=== PATIENT | male | born 1950 | race African-American/Black ===

== ENCOUNTER → 2017-11-16 | Outpatient (CLI) | payer OTHER | END | disposition home or self-care (01) | LOC: US 07:39 | DX: M79.89 Other specified soft tissue disorders (principal) | CPT/HCPCS: 93971 ==

== ENCOUNTER 2018-02-10 13:25 | Inpatient (IN) | payer OTHER, MEDICARE ==
[~2018-02-10] VITALS: Ht 177.8 cm; Wt 123.9 kg
[~2018-02-10 13:25] MED LIST: ALLO100T PO; AMLO10TA2 PO; AMLO25PO MC; AMLO5TAB2 PO; ASPI81TA59 PO; ATOR40TA59 PO; CARV12.52 PO; CARV25TA PO; CEFP200T PO; CLON1PAT10 TD; CLON1PAT2 TD; CLOP75TA PO; FLUC100T7 PO; FURO40TA4 PO; FURO80TA3 PO; HYDR-2758 PO; HYDR-2802 PO; HYDR-2869 PO; HYDR-971 PO; INSU100I11 SQ; INSU100I13 SQ; INSU100I17 SQ; INSU100I27 SQ; LOSA100T6 PO; LOSA50TA2 PO; METO10PO MC; METO10TA PO; METO10TA81 PO; MULT-658 PO; OMEG300C PO; OMEP40CA2 PO; OMEP40CA5 PO; PANT40TA5 PO; TIMO5DRO26 OP; VARD20TA2 PO
[2018-02-10 15:00] VITALS: BP 167/78
--- NOTE | 2018-02-10 16:17 | PDOC ---
Subjective: Subjective: Please see GI consult from 01/26/18, saw for upper abd pain and n/v. Had mildly elevated lipase (max 558). Abd US was unrevealing. EGD showed healed reflux and some retained soup. CT showed subtle hazy indistinctness of uncinate. GES was basically normal (11% retention at 4 hours). HIDA was w/o cystic duct obstruction, EF 60%. Last colonoscopy in 2011 w/ hyperplastic polyp and angiodysplasia. Improved on PPI and Reglan, discharged on 02/02. Directly admitted by PCP. Pt and say he's not feeling well at all, still has upper abdominal pain ("burning") and retching (describes phlegm). Says can' t keep anything down, also says has eaten chicken broth and Sujit's since seeing Dr. Chery. says he has lost 20 pounds. I think provides the same med list from prior to last admission - shows omeprazole BID and Reglan 10mg tabs BID. Objective: Vital Signs: Please see EMR. Labs: Please see EMR. PE: GEN: NAD, sitting on edge of bed HEENT: Atraumatic, PERRL LUNGS: CTAB HEART: RRR ABD: NABS, round, epigastric tenderness to BUQ - some muscular discomfort? EXTREMITY: No edema SKIN: No rashes, no jaundice NEURO/PSYCH: A & O 3 A/P: Upper abd pain, n/v/retching, weight loss -past workup per HPI -improved last week on IV Reglan -- Plans for celiac and mesenteric Doppler, await this and labs. Restart PPI and Reglan. Check CA19-9 and MRCP. RJ HAYS Feb 10, 2018 16:17
[2018-02-10 16:33] LABS: BASO # 0.1 x10^3/uL (0.0-0.2); BASO % 1 % (0-3); EOS # 0.1 x10^3/uL (0.0-0.7); EOS % 1 % (0-3); HEMATOCRIT 40.5 % (39.0-53.0); HEMOGLOBIN 13.2 g/dL (13.0-17.5); LYMPH # 2.3 x10^3/uL (1.0-4.8); LYMPH % 37 % (24-48); MEAN CORPUSCULAR HEMOGLOBIN 30 pg (25-35); MEAN CORPUSCULAR HGB CONC 33 g/dL (31-37); MEAN CORPUSCULAR VOLUME 93 fL (79-100); MONO # 0.6 x10^3/uL (0.0-1.1); MONO % 9 % (0-9); NEUT # 3.2 x10^3uL (1.8-7.7); NEUT % 53 % (31-73); PLATELET COUNT 222 x10^3/uL (140-400); RED BLOOD COUNT 4.35 x10^6/uL (4.30-5.70); RED CELL DISTRIBUTION WIDTH 13.7 % (11.5-14.5); WHITE BLOOD COUNT 6.2 x10^3/uL (4.0-11.0)
[2018-02-10 16:34] LABS: ALBUMIN 3.5 g/dL (3.4-5.0); ALBUMIN/GLOBULIN RATIO 0.8 (1.0-1.7); CALCIUM 9.1 mg/dL (8.5-10.1); CREATININE 2.5 mg/dL (0.7-1.3); GFR 31.3; POTASSIUM 4.2 mmol/L (3.5-5.1); TOTAL BILIRUBIN 0.4 mg/dL (0.2-1.0); TOTAL PROTEIN 7.7 g/dL (6.4-8.2)
[2018-02-10] MEDS ORDERED: LOSA50TA6 PO (16:44)
[2018-02-10] MEDS ORDERED: CARV12.52 PO (16:44)
[2018-02-10] MEDS ORDERED: HYDR-2758 PO (16:44)
[2018-02-10] MEDS ORDERED: CLON1PAT9 TD (16:44)
[2018-02-10] MEDS ORDERED: PANT20TA2 PO (16:44)
[2018-02-10] MEDS: ASPIRIN CHEWABLE 81 MG TABLET. PO SCH (17:00)
[2018-02-10] MEDS ORDERED: ACETAMINOPHEN 325 MG TABLET. PO PRN (17:00)
[2018-02-10] MEDS ORDERED: METOCLOPRAMIDE 10 MG TABLET. PO SCH (17:00)
[2018-02-10] MEDS: CLOPIDOGREL BISULFATE 75 MG TABLET PO SCH (17:00)
[2018-02-10] MEDS: FUROSEMIDE 80 MG TABLET. PO SCH (17:00)
[2018-02-10] MEDS ORDERED: PANTOPRAZOLE IV PUSH 40 MG VIAL. IVP SCH (17:00)
[2018-02-10] MEDS ORDERED: MORPHINE SULFATE 2 MG/ML VIAL. IV PRN (17:00)
[2018-02-10] MEDS: METOCLOPRAMIDE HCL 10 MG/2 ML VIAL. IV SCH ×2 (17:00→21:48)
[2018-02-10] MEDS: INSULIN LISPRO 300 UNITS/3 ML INSULN.PEN. SQ SCH (18:17)
[2018-02-10 19:20] VITALS: BP 166/83
[2018-02-10] MEDS ORDERED: INSULIN GLARGINE 300 UNITS/3 ML INSULN.PEN. SQ SCH (21:00)
[2018-02-10] MEDS: ONDANSETRON PF 4 MG/2 ML VIAL. IV SCH (21:47)
[2018-02-10] MEDS: PANTOPRAZOLE IV PUSH 40 MG VIAL. IVP SCH (21:47)
[2018-02-10] MEDS: IV 1/2 NORMAL SALINE 1,000 ML IV SCH (21:47)
[2018-02-10] MEDS: ALLOPURINOL 100 MG TABLET. PO SCH (21:48)
[2018-02-10] MEDS: MORPHINE SULFATE 2 MG/ML VIAL. IV PRN (21:48)
[2018-02-10] MEDS: CARVEDILOL 12.5 MG TABLET. PO SCH (21:49)
[2018-02-10] MEDS: ATORVASTATIN CALCIUM 40 MG TABLET. PO SCH (21:49)
[2018-02-10 23:20] VITALS: BP 163/97
[2018-02-11 03:20] VITALS: BP 166/73
[2018-02-11] MEDS: MORPHINE SULFATE 2 MG/ML VIAL. IV PRN (03:51)
[2018-02-11] MEDS: ONDANSETRON PF 4 MG/2 ML VIAL. IV SCH ×5 (06:00→23:17)
[2018-02-11 06:16] LABS: BASO # 0.1 x10^3/uL (0.0-0.2); BASO % 1 % (0-3); EOS # 0.1 x10^3/uL (0.0-0.7); EOS % 2 % (0-3); HEMATOCRIT 37.7 % (39.0-53.0); HEMOGLOBIN 12.9 g/dL (13.0-17.5); LYMPH # 2.3 x10^3/uL (1.0-4.8); LYMPH % 34 % (24-48); MEAN CORPUSCULAR HEMOGLOBIN 31 pg (25-35); MEAN CORPUSCULAR HGB CONC 34 g/dL (31-37); MEAN CORPUSCULAR VOLUME 90 fL (79-100); MONO # 0.8 x10^3/uL (0.0-1.1); MONO % 11 % (0-9); NEUT # 3.5 x10^3uL (1.8-7.7); NEUT % 52 % (31-73); PLATELET COUNT 227 x10^3/uL (140-400); RED BLOOD COUNT 4.21 x10^6/uL (4.30-5.70); RED CELL DISTRIBUTION WIDTH 13.4 % (11.5-14.5); WHITE BLOOD COUNT 6.7 x10^3/uL (4.0-11.0)
[2018-02-11 06:20] LABS: CALCIUM 8.7 mg/dL (8.5-10.1); CREATININE 2.3 mg/dL (0.7-1.3); GFR 34.5; POTASSIUM 4.1 mmol/L (3.5-5.1)
[2018-02-11 07:30] VITALS: BP 192/75
--- NOTE | 2018-02-11 07:42 | RAD ---
Indication:CONFIRM PICC PLACEMENT TECHNIQUE:Portable AP chest X-ray COMPARISON:01/26/2018 FINDINGS: Patient is significantly rotated to the right side. Right-sided PICC line is seen with its tip in the proximal SVC. Heart is normal in size. Lungs are clear. No pneumothorax or pleural effusion. Visualized bony thorax within normal limits. IMPRESSION: Tip of the PICC line is in the proximal SVC. Electronically signed by: Jose Velasquez DO (02/11/2018 7:38 AM) [facility]
[2018-02-11] MEDS: INSULIN LISPRO 300 UNITS/3 ML INSULN.PEN. SQ SCH ×3 (08:00→17:26)
--- NOTE | 2018-02-11 08:32 | RAD ---
Indication: upper abdominal pain. TECHNIQUE: Limited Ultrasound abdomen with Doppler. COMPARISON: None FINDINGS: Nondiagnostic exam for evaluation of vasculature due to body habitus and overlying bowel gas. Only a short segment of aorta is visualized which measures 2.1 cm and demonstrates evidence of blood flow. The visualized portions of the gallbladder demonstrates no gallstones or gallbladder wall thickening. IMPRESSION: Nondiagnostic Doppler exam for evaluation of abdominal vasculature due to body habitus and overlying bowel gas. Electronically signed by: Jose Velasquez DO (02/11/2018 8:28 AM) [facility]
[2018-02-11] MEDS: PANTOPRAZOLE IV PUSH 40 MG VIAL. IVP SCH ×2 (08:37→16:57)
[2018-02-11] MEDS: ALLOPURINOL 100 MG TABLET. PO SCH ×2 (08:37→20:37)
[2018-02-11] MEDS: FUROSEMIDE 80 MG TABLET. PO SCH (08:38)
[2018-02-11] MEDS: METOCLOPRAMIDE HCL 10 MG/2 ML VIAL. IV SCH ×4 (08:38→20:37)
[2018-02-11] MEDS: CARVEDILOL 12.5 MG TABLET. PO SCH ×2 (08:38→16:58)
[2018-02-11] MEDS: ASPIRIN CHEWABLE 81 MG TABLET. PO SCH (08:38)
[2018-02-11] MEDS: CLOPIDOGREL BISULFATE 75 MG TABLET PO SCH (08:38)
[2018-02-11] MEDS: IV 1/2 NORMAL SALINE 1,000 ML IV SCH (08:39)
[2018-02-11] MEDS: TIMOLOL 0.25% OPHTH SOLUTION 5ML BOTTLE. OU SCH (08:39)
[2018-02-11] MEDS ORDERED: cloNIDine TTS-1 1 PATCH PATCH.TDWK TD SCH (09:00)
[2018-02-11] MEDS ORDERED: LOSARTAN POTASSIUM 50 MG TABLET. PO SCH (09:00)
[2018-02-11] MEDS ORDERED: NON FORMULARY ITEM (Pantoprazole Sodium (Protonix) 40 MG) PO SCH (09:00)
[2018-02-11] MEDS ORDERED: MAG HYDROX/ALUMINUM HYD/SIMETH 30 ML ORAL.SUSP PO PRN (11:00)
--- NOTE | 2018-02-11 11:06 | PDOC ---
Provider Note Provider Note history and physical dictated # [id number] JONNY JOHN MD Feb 11, 2018 11:06
--- NOTE | 2018-02-11 11:17 | PDOC2 ---
CONSULT Date of Consult Date of Consult DATE: 02/10/18 TIME: 16:00 LATE ENTRY PT SEEN YESTERDAY AFTERNOON Reason for Consult Reason for Consult: epigastric pain Referring Physician Referring Physician: Dr Chery Identification/Chief Complaint Chief Complaint epigastric pain Source Source: Chart review, Patient History of Present Illness Reason for Visit: Mr Larios is an obese 68 yo gentleman who was recently hospitalized for intractable n/v. He is an IDD and had a thorough w/u last week. He was seen earlier today in the office and made a direct admit by Dr Chery for a repeat CT scan and an MRCP. He is currently sitting on the edge of his bed with his street clothes on. He is unhappy with the fact radiology came to take him for a scan that he was told would require sedation, and he has not been given any. Other than appearing unhappy, he does not appear to be in any distress. His is in the room Past Medical History Cardiovascular: HTN GI: GERD Renal/: Chronic renal insuff Endocrine: Diabetes Past Surgical History Past Surgical History: Other (left fem pop) Social History 1 pack per day ALCOHOL: none Drugs: None Lives: with Family Current Medications Current Medications Current Medications Sodium Chloride 1,000 ml @ 60 mls/hr [id number] IV Last administered on at 08:39; Start 02/10/18 at 15:30; Stop 02/11/18 at 10:55; Status DC Allopurinol (Zyloprim) 100 mg BID PO Last administered on 02/11/18at 08:37; Start 02/10/18 at 21:00 Aspirin (Children'S Aspirin) 81 mg DAILYWBKFT PO Last administered on at 08:38; Start 02/10/18 at 17:00 Clopidogrel Bisulfate (Plavix) 75 mg DAILY PO Last administered on 02/11/18at 08 :38; Start 02/10/18 at 17:00 Furosemide (Lasix) 80 mg BID94 PO Last administered on 02/11/18at 08:38; Start 02/10/18 at 17:00; Stop 02/11/18 at 10:55; Status DC Metoclopramide HCl (Reglan) 5 mg TIDACHC PO ; Start 02/10/18 at 17:00; Status UNV Pantoprazole Sodium (PROTONIX VIAL for IV PUSH) 40 mg DAILYAC IVP ; Start at 17:00; Stop 02/10/18 at 17:00; Status DC Metoclopramide HCl (Reglan Vial) 10 mg QIDACHS IV Last administered on 08:38; Start 02/10/18 at 17:00 Pantoprazole Sodium (PROTONIX VIAL for IV PUSH) 40 mg BIDAC IVP Last administered on 02/11/18at 08:37; Start 02/10/18 at 17:00 Timolol Maleate (Timoptic 0.25% [facility]) 1 drop DAILY OU Last administered on 08:39; Start 02/11/18 at 09:00 Atorvastatin Calcium (Lipitor) 40 mg HS PO Last administered on 02/10/18 21:49 ; Start 02/10/18 at 21:00 Carvedilol (Coreg) 12.5 mg BIDWMEALS PO Last administered on 02/11/18 08:38; Start 02/10/18 at 21:00; Stop 02/11/18 at 10:55; Status DC Clonidine HCl (Catapres Tts-1) 1 patch WEEKLY TD Last administered on 08:37; Start 02/11/18 at 09:00; Stop 02/11/18 at 10:55; Status DC Acetaminophen/ Hydrocodone Bitart (Lortab 5/325) 1 tab PRN Q4HRS PRN PO MODERATE-SEVERE PAIN; Start 02/10/18 at 16:45 Losartan Potassium (Cozaar) 50 mg DAILY PO Last administered on 02/11/18at 08:39 ; Start 02/11/18 at 09:00; Stop 02/11/18 at 10:56; Status DC Non-Formulary Medication (Pantoprazole Sodium (Protonix)) 40 mg DAILY PO ; Start 02/11/18 at 09:00; Status UNV Acetaminophen (Tylenol) 325 mg PRN Q4HRS PRN PO MILD PAIN / TEMP; Start at 17:00 Ondansetron HCl (Zofran) 4 mg Q6HRS IV Last administered on 02/10/18at 21:47; Start 02/10/18 at 18:00 Lorazepam (Ativan) 1 mg 1X ONCE IV ; Start 02/10/18 at 17:30; Stop 02/10/18 at 22:30; Status DC Insulin Human Lispro (HumaLOG) 6 units TIDWMEALS SQ Last administered on at 08:00; Start 02/10/18 at 17:30; Stop 02/11/18 at 10:56; Status DC Insulin Glargine (Lantus) 20 units QHS SQ Last administered on 02/10/18at 22:49 ; Start 02/10/18 at 21:00; Stop 02/11/18 at 10:55; Status DC Morphine Sulfate (Morphine Sulfate) 2 mg PRN Q4HRS PRN IV SEVERE PAIN Last administered on 02/11/18at 03:51; Start 02/10/18 at 17:00 Morphine Sulfate (Morphine Sulfate) 1 mg PRN Q4HRS PRN IV MODERATE PAIN; Start 02/10/18 at 17:00 Lorazepam (Ativan) 1 mg 1X ONCE IV ; Start 02/11/18 at 08:00; Stop 02/11/18 at 08:01; Status DC Carvedilol (Coreg) 25 mg BIDWMEALS PO ; Start 02/11/18 at 17:00 Insulin Glargine (Lantus) 40 units QHS SQ ; Start 02/11/18 at 21:00 Insulin Human Lispro (HumaLOG) 12 units TIDWMEALS SQ ; Start 02/11/18 at 12:00 Losartan Potassium (Cozaar) 100 mg DAILY PO ; Start 02/12/18 at 09:00 Clonidine HCl (Catapres Tts-2) 1 patch WEEKLY TD ; Start 02/11/18 at 12:00 Sodium Chloride 1,000 ml @ 75 mls/hr [id number] IV ; Start 02/11/18 at 12:00 Al Hydroxide/Mg Hydroxide (Mylanta Plus Xs) 30 ml PRN Q2HR PRN PO HEARTBURN / GAS; Start 02/11/18 at 11:00 Active Scripts Active Humalog (Insulin Lispro) 100 Unit/1 Ml Insuln.pen 16 Units SQ TIDAC 30 Days Lantus Solostar (Insulin Glargine,Hum.rec.anlog) 100 Unit/1 Ml Insuln.pen 40 Units SQ QHS 30 Days Amlodipine Besylate 5 Mg Tablet 5 Mg PO DAILY 30 Days Metoclopramide Hcl 10 Mg Tablet 10 [facility] Children's Aspirin (Aspirin) 81 Mg Tab.chew 81 Mg PO DAILYWBKFT Reported Protonix (Pantoprazole Sodium) 20 Mg Tablet.dr 40 Mg PO DAILY Hydrocodone-Apap 5-325 (Hydrocodone Bit/Acetaminophen) 1 Each Tablet 1 Tab PO Q4HRS PRN Losartan Potassium 50 Mg Tablet 50 Mg PO DAILY Catapres-Tts 1 (Clonidine) 1 Each Patch.tdwk 1 Each TD WEEKLY Carvedilol 12.5 Mg Tablet 1 Tab PO BID Omeprazole 40 Mg Capsule.dr 1 Cap PO DAILY Clopidogrel (Clopidogrel Bisulfate) 75 Mg Tablet 1 Tab PO DAILY Allopurinol 100 Mg Tablet 1 Tab PO BID Furosemide 80 Mg Tablet 1 Tab PO BID Centrum Silver Tablet (Multivits-Min/Fa/Lycopene/Lut) 1 Each Tablet 1 Each PO Fish Oil (Franklin-3 Fatty Acids) 300 Mg Capsule 1,000 Mg PO DAILY Atorvastatin Calcium 40 Mg Tablet 40 Mg PO HS Betimol (Timolol) 5 Ml Drops 5 Ml OP DAILY Allergies Allergies: Coded Allergies: ibuprofen (Verified Allergy, Intermediate, RENAL DYSFUNCTION, 01/27/18) kidney dysfunction lisinopril (Verified Allergy, Intermediate, 01/27/18) pioglitazone (Verified Allergy, Intermediate, 01/27/18) Physical Exam General: Alert, Oriented X3, No acute distress HEENT: Atraumatic Lungs: Normal air movement Vitals VITALS Vital Signs Date Time Temp Pulse Resp B/P (MAP) Pulse Ox O2 Delivery O2 Flow Rate FiO2 02/11/18 08:39 62 192/75 02/11/18 08:00 Room Air 02/11/18 07:30 98.1 18 100 98.1 Labs Labs Laboratory Tests Test 02/10/18 16:05 02/10/18 22:12 02/11/18 05:46 02/11/18 07:41 White Blood Count 6.2 x10^3/uL (4.0-11.0) 6.7 x10^3/uL (4.0-11.0) Red Blood Count 4.35 x10^6/uL (4.30-5.70) 4.21 x10^6/uL (4.30-5.70) Hemoglobin 13.2 g/dL (13.0-17.5) 12.9 g/dL (13.0-17.5) Hematocrit 40.5 % (39.0-53.0) 37.7 % (39.0-53.0) Mean Corpuscular Volume 93 fL (79-100) 90 fL (79-100) Mean Corpuscular Hemoglobin 30 pg (25-35) 31 pg (25-35) Mean Corpuscular Hemoglobin Concent 33 g/dL (31-37) 34 g/dL (31-37) Red Cell Distribution Width 13.7 % (11.5-14.5) 13.4 % (11.5-14.5) Platelet Count 222 x10^3/uL (140-400) 227 x10^3/uL (140-400) Neutrophils (%) (Auto) 53 % (31-73) 52 % (31-73) Lymphocytes (%) (Auto) 37 % (24-48) 34 % (24-48) Monocytes (%) (Auto) 9 % (0-9) 11 % (0-9) Eosinophils (%) (Auto) 1 % (0-3) 2 % (0-3) Basophils (%) (Auto) 1 % (0-3) 1 % (0-3) Neutrophils # (Auto) 3.2 x10^3uL (1.8-7.7) 3.5 x10^3uL (1.8-7.7) Lymphocytes # (Auto) 2.3 x10^3/uL (1.0-4.8) 2.3 x10^3/uL (1.0-4.8) Monocytes # (Auto) 0.6 x10^3/uL (0.0-1.1) 0.8 x10^3/uL (0.0-1.1) Eosinophils # (Auto) 0.1 x10^3/uL (0.0-0.7) 0.1 x10^3/uL (0.0-0.7) Basophils # (Auto) 0.1 x10^3/uL (0.0-0.2) 0.1 x10^3/uL (0.0-0.2) Sodium Level 132 mmol/L (136-145) 134 mmol/L (136-145) Potassium Level 4.2 mmol/L (3.5-5.1) 4.1 mmol/L (3.5-5.1) Chloride Level 98 mmol/L (98-107) 98 mmol/L (98-107) Carbon Dioxide Level 27 mmol/L (21-32) 33 mmol/L (21-32) Anion Gap 7 (6-14) 3 (6-14) Blood Urea Nitrogen 30 mg/dL (8-26) 30 mg/dL (8-26) Creatinine 2.5 mg/dL (0.7-1.3) 2.3 mg/dL (0.7-1.3) Estimated GFR (Cockcroft-Gault) 31.3 34.5 BUN/Creatinine Ratio 12 (6-20) Glucose Level 489 mg/dL (70-99) 319 mg/dL (70-99) Calcium Level 9.1 mg/dL (8.5-10.1) 8.7 mg/dL (8.5-10.1) Magnesium Level 2.0 mg/dL (1.8-2.4) Total Bilirubin 0.4 mg/dL (0.2-1.0) Aspartate Amino Transf (AST/SGOT) 29 U/L (15-37) Alanine Aminotransferase (ALT/SGPT) 31 U/L (16-63) Alkaline Phosphatase 100 U/L (46-116) Total Protein 7.7 g/dL (6.4-8.2) Albumin 3.5 g/dL (3.4-5.0) Albumin/Globulin Ratio 0.8 (1.0-1.7) Amylase Level 102 U/L (25-115) Lipase 668 U/L (73-393) Glucose (Fingerstick) 390 mg/dL (70-99) 283 mg/dL (70-99) Laboratory Tests Test 02/10/18 16:05 02/10/18 22:12 02/11/18 05:46 02/11/18 07:41 White Blood Count 6.2 x10^3/uL (4.0-11.0) 6.7 x10^3/uL (4.0-11.0) Red Blood Count 4.35 x10^6/uL (4.30-5.70) 4.21 x10^6/uL (4.30-5.70) Hemoglobin 13.2 g/dL (13.0-17.5) 12.9 g/dL (13.0-17.5) Hematocrit 40.5 % (39.0-53.0) 37.7 % (39.0-53.0) Mean Corpuscular Volume 93 fL (79-100) 90 fL (79-100) Mean Corpuscular Hemoglobin 30 pg (25-35) 31 pg (25-35) Mean Corpuscular Hemoglobin Concent 33 g/dL (31-37) 34 g/dL (31-37) Red Cell Distribution Width 13.7 % (11.5-14.5) 13.4 % (11.5-14.5) Platelet Count 222 x10^3/uL (140-400) 227 x10^3/uL (140-400) Neutrophils (%) (Auto) 53 % (31-73) 52 % (31-73) Lymphocytes (%) (Auto) 37 % (24-48) 34 % (24-48) Monocytes (%) (Auto) 9 % (0-9) 11 % (0-9) Eosinophils (%) (Auto) 1 % (0-3) 2 % (0-3) Basophils (%) (Auto) 1 % (0-3) 1 % (0-3) Neutrophils # (Auto) 3.2 x10^3uL (1.8-7.7) 3.5 x10^3uL (1.8-7.7) Lymphocytes # (Auto) 2.3 x10^3/uL (1.0-4.8) 2.3 x10^3/uL (1.0-4.8) Monocytes # (Auto) 0.6 x10^3/uL (0.0-1.1) 0.8 x10^3/uL (0.0-1.1) Eosinophils # (Auto) 0.1 x10^3/uL (0.0-0.7) 0.1 x10^3/uL (0.0-0.7) Basophils # (Auto) 0.1 x10^3/uL (0.0-0.2) 0.1 x10^3/uL (0.0-0.2) Sodium Level 132 mmol/L (136-145) 134 mmol/L (136-145) Potassium Level 4.2 mmol/L (3.5-5.1) 4.1 mmol/L (3.5-5.1) Chloride Level 98 mmol/L (98-107) 98 mmol/L (98-107) Carbon Dioxide Level 27 mmol/L (21-32) 33 mmol/L (21-32) Anion Gap 7 (6-14) 3 (6-14) Blood Urea Nitrogen 30 mg/dL (8-26) 30 mg/dL (8-26) Creatinine 2.5 mg/dL (0.7-1.3) 2.3 mg/dL (0.7-1.3) Estimated GFR (Cockcroft-Gault) 31.3 34.5 BUN/Creatinine Ratio 12 (6-20) Glucose Level 489 mg/dL (70-99) 319 mg/dL (70-99) Calcium Level 9.1 mg/dL (8.5-10.1) 8.7 mg/dL (8.5-10.1) Magnesium Level 2.0 mg/dL (1.8-2.4) Total Bilirubin 0.4 mg/dL (0.2-1.0) Aspartate Amino Transf (AST/SGOT) 29 U/L (15-37) Alanine Aminotransferase (ALT/SGPT) 31 U/L (16-63) Alkaline Phosphatase 100 U/L (46-116) Total Protein 7.7 g/dL (6.4-8.2) Albumin 3.5 g/dL (3.4-5.0) Albumin/Globulin Ratio 0.8 (1.0-1.7) Amylase Level 102 U/L (25-115) Lipase 668 U/L (73-393) Glucose (Fingerstick) 390 mg/dL (70-99) 283 mg/dL (70-99) Assessment/Plan Assessment/Plan persistent epigastric pain in this obese male diabetic without a clear explanation. No surgical issues identified as of yet. As such, no acute surgical recommendations. Will follow with you. Thanks for consult ISHA HENSON MD Feb 11, 2018 11:17
[2018-02-11 11:49] VITALS: BP 149/71
[2018-02-11] MEDS ORDERED: cloNIDine TTS-2 1 PATCH PATCH TD SCH (12:00)
--- NOTE | 2018-02-11 12:06 | HP ---
ADMIT DATE: 02/11/2018 LOCATION: He is in room 662. HISTORY OF PRESENT ILLNESS: The patient is a 68-year-old male with a history of diabetes mellitus type 2, hypertension who has chronic kidney disease stage 3 and peripheral arterial disease, who was admitted from my office on 02/10/2018 with epigastric abdominal pain described as a burning, nausea and vomiting and decreased oral intake. He says he has not had a bowel movement in 1 week also. He was recently dismissed from [facility] with similar symptoms and underwent a workup, which included an ultrasound of the abdomen, which was unremarkable. There was a question of some gallbladder sludge. He had an EGD, which showed a healed gastroesophageal reflux disease. CAT scan of the abdomen and pelvis showed a hazy indistinct area in the head of the pancreas, but no mass was seen, and no evidence of acute pancreatitis at that time. HIDA scan indicated that he had a normal gallbladder, left ventricular ejection fraction and no cystic duct obstruction. Last colonoscopy was, I believe, in 2013 and he had a hyperplastic polyp. The patient was dismissed with less epigastric pain and was actually doing well with only 2/10 pain. When he returned home, his pain worsened and he was unable to eat or drink and I saw him in the office yesterday and admitted to the hospital for further evaluation and treatment. The patient has already been seen by the GI doctor, Dr. Churchill, in consultation. He is currently on IV Protonix and IV Reglan. We attempted an ultrasound of his celiac and mesenteric arteries, but due to his size it could not be done this admission. His blood sugars are high, his blood pressure is high and he has got acute kidney injury on top of chronic kidney disease with serum creatinine of 2.3 and, I believe, on his last admission his creatinine was more in the neighborhood of 1.7-1.8. He does take furosemide 80 mg p.o. b.i.d. He is therefore admitted for further evaluation of epigastric abdominal pain and nausea and vomiting. ALLERGIES AND INTOLERANCES: IBUPROFEN, LISINOPRIL AND ACTOS. MEDICATIONS: Prior to admission include allopurinol 100 mg b.i.d., aspirin 81 mg every day, eyedrops for glaucoma, carvedilol 25 mg b.i.d., Catapres TTS 1 patch every week, fish oil 1 g daily, furosemide 80 mg b.i.d., Levemir insulin 40 units at bedtime, but he has not been taking any at home since he has not been eating; atorvastatin 40 mg at bedtime, losartan 100 mg every day, metoclopramide 10 mg before meals t.i.d. and bedtime, multiple vitamin, Chelsea 5/325 one tablet t.i.d. p.r.n., NovoLog insulin 16 units before meals t.i.d., but says he was not taking his insulin prior to admission as he was not eating; omeprazole 40 mg every day, Plavix 75 mg every day and Zofran 4 mg p.o. every 6 hours p.r.n. PAST MEDICAL HISTORY: Significant for diabetes mellitus type 2, hypertension, hyperlipidemia, chronic kidney disease stage 3, benign prostatic hypertrophy and peripheral arterial disease. He had a gastric emptying nuclear medicine test last admission, which showed the stomach was emptying well. He does have a history of diabetes mellitus type 2 with diabetic nephropathy. I guess it was 2011 that he had a colonoscopy and in 2013 he had internal hemorrhoids at that time. An EGD was also done in 2011 and he had some evidence of reactive gastropathy. He does have a history of acute pancreatitis in 1994 and 2001, had duodenitis in 1994 per EGD with some dilatation in 11/2014. He has had bilateral cataract extraction, bilateral laser surgery to his eyes. Right lobe thyroidectomy in 02/2014. He has peripheral arterial disease, had a stent to his left leg in 08/2014 and had a left femoral and popliteal arterial angioplasty and stent placed at that time. He has a history of gastroesophageal reflux disease and glaucoma, diabetic retinopathy, erectile dysfunction and morbid obesity. SOCIAL HISTORY: He does not smoke cigarettes, but he has an occasional drink. He is . FAMILY HISTORY: Father had diabetes mellitus. Mother had tuberculosis. REVIEW OF SYSTEMS: GENERAL: No fever, chills or sweats. CARDIOVASCULAR: No chest pain. PULMONARY: No cough or shortness of breath. GASTROINTESTINAL: He has had nausea, vomiting, epigastric abdominal pain, no bowel movement in about 7 days. ENDOCRINE: He has diabetes mellitus. SKIN: No rashes. The rest of systems reviewed are negative except as stated in history of present illness. PHYSICAL EXAMINATION: VITAL SIGNS: Temperature is 98.1 degrees, apical pulse regular at 62, respiratory rate 18, blood pressure 192/75, oxygen saturation 100% on room air. HEENT: Eyes: Gaze is conjugate. Mouth: Tongue is midline. NECK: There is no cervical lymphadenopathy or thyroid enlargement. HEART: Reveals an S1, S2. There is no S3 or murmur. LUNGS: Clear. ABDOMEN: Examined in the sitting position, it is soft and he does have epigastric tenderness. EXTREMITIES: Lower extremities are without edema. SKIN: No rashes. NEUROLOGIC: Shows he is coherent. No focal weakness of extremities or facial asymmetry. LABORATORY DATA: White count 6.7, hemoglobin 12.9 with a platelet count of 227,000, 52 polys, 34 lymphocytes, and 11 monocytes. His serum sodium is 134, potassium 4.1, chloride 98, total CO2 of 33, BUN 30, creatinine was 2.3, blood sugar was 319 this morning, calcium of 8.7. He had a blood sugar of 283 by fingerstick this morning. Liver function tests were normal. Magnesium was 2.0, amylase was 102. Lipase was increased to 668. He had an attempt to do a Doppler of the celiac and mesenteric artery, but they could not be visualized due to his size and he had a chest x-ray done, which showed a PICC line was placed in the correct position. He has not had an electrocardiogram done yet. ASSESSMENT: 1. Epigastric abdominal pain with an elevated lipase, normal amylase. He has had a significant workup already for this; it is unclear why it persists. He did say it was worse when he bent and turned; however, he has had some poor appetite and nausea and vomiting and weight loss, has lost about 10 pounds in the last week. Also, some constipation problems due to poor oral intake. 2. Acute kidney injury on top of chronic kidney disease stage 3, probably secondary to furosemide and decreased fluid intake at home. Hopefully, that will improve with IV hydration and discontinuation of furosemide. We will consult Dr. Skinner from Nephrology. 3. Diabetes mellitus, hyperglycemia as he was not taking his insulin at home. 4. Hypertension, uncontrolled. We will increase his blood pressure medicines from what he was taking at home. 5. Peripheral arterial disease. PLAN: At this time is to consult Dr. Churchill who has already seen the patient for GI, Dr. Skinner for Nephrology, Dr. Diop for General Surgery to make sure he does not have any type of surgical problem to the abdominal wall such as a hernia that was not picked up on the CAT scan. We will get a CAT scan of the abdomen and pelvis without IV contrast. Also, an MRCP has been ordered by Dr. Churchill. Could consider an MRI of the abdomen also. Repeat his blood tests including his lipase tomorrow. Change him to a clear liquid diet, discontinue the furosemide, change his IV to normal saline 75 mL an hour. He did have a lipid profile during his last hospital stay and his triglycerides were not elevated significantly. We will increase his insulin and switch back to a clear liquid diet in case there is evidence of acute pancreatitis. A CA 19-9 was also ordered by Dr. Churchill and that is pending We will continue with the morphine sulfate 1-2 mg IV every 4 hours p.r.n., hydrocodone p.r.n., IV Protonix and IV Reglan. We will monitor his blood sugars also as mentioned. JONNY JOHN MD DR: SANJUANA/mis JOB#: [id number] / [id number]
[2018-02-11] MEDS: IV NORMAL SALINE 1000ML BAG 1,000 ML IV SCH (12:21)
[2018-02-11 14:44] VITALS: BP 124/73
[2018-02-11] MEDS: LACTULOSE 20 GM/30 ML SOLUTION. PO SCH ×2 (16:56→18:00)
[2018-02-11 19:51] VITALS: BP 149/71
[2018-02-11] MEDS: ATORVASTATIN CALCIUM 40 MG TABLET. PO SCH (20:38)
--- NOTE | 2018-02-11 20:38 | EKG ---
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
[2018-02-11] MEDS ORDERED: INSULIN GLARGINE 300 UNITS/3 ML INSULN.PEN. SQ SCH (21:00)
[2018-02-11 23:35] VITALS: BP 155/69
[2018-02-12] MEDS: IV NORMAL SALINE 1000ML BAG 1,000 ML IV SCH ×2 (01:13→15:13)
--- NOTE | 2018-02-12 01:16 | CONS ---
DATE OF CONSULTATION: 02/11/2018 REQUESTING PHYSICIAN: Dr. Jonny Chery. REASON FOR CONSULTATION: Renal failure. HISTORY OF PRESENT ILLNESS: This is a 68-year-old gentleman with admission prompted by abdominal pain, nausea, vomiting. He was here approximately 1 week prior to this evaluation apparently. He was discharged on PPI and Reglan with improvement on 02/02/2018. He now presents with upper abdominal pain and retching. Laboratories currently notable for BUN 30, creatinine of 2.3 with GFR of 34.5, glucose is 319. PAST MEDICAL HISTORY: Diabetes mellitus, chronic kidney disease, likely stage 3, gout, hyperlipidemia, hypertension. ALLERGIES: LISINOPRIL, PIOGLITAZONE, IBUPROFEN. MEDICATIONS: Reviewed. FAMILY HISTORY: Noncontributory. SOCIAL HISTORY: The patient resides with . REVIEW OF SYSTEMS: The patient has had abdominal pain, nausea, retching. No fever, chills, cough, sputum production or hemoptysis. No difficulty with urination, nephrolithiasis or gross hematuria. PHYSICAL EXAMINATION: GENERAL APPEARANCE: The patient is sleeping, but awakens. HEENT: Clear. NECK: No increased JVD. LUNGS: Clear. CARDIAC: Without S3 or rub. ABDOMEN: Distended, nontender. Bowel sounds present. EXTREMITIES: Without edema. NEUROPSYCHIATRIC: The patient is dysphoric. LABORATORY DATA: Sodium 132, potassium 4.2, chloride 98, CO2 of 27, BUN 30, creatinine 2.5 on admission, currently creatinine 2.3 with GFR of 34.5. Glucoses have been running 207-489, amylase 102, lipase 686. Hemoglobin 12.9, hematocrit 37.7. IMPRESSION: 1. Chronic kidney disease, likely stage 3 in the setting of diabetes mellitus and hypertension. May as well have acute component of prerenal state due to dehydration in the setting of reduced intravascular volume. 2. Abdominal pain, nausea, retching, elevated lipase -- consideration for pancreatitis. 3. Diabetes mellitus. RECOMMENDATIONS: 1. IV fluid administration and follow response. 2. GI and Surgery Service on. JONNY WELCH MD DR: LINDA/mis JOB#: [id number] / [id number]
[2018-02-12] MEDS: MORPHINE SULFATE 2 MG/ML VIAL. IV PRN ×2 (02:57→20:48)
[2018-02-12 03:47] VITALS: BP 157/67
[2018-02-12] MEDS: ONDANSETRON PF 4 MG/2 ML VIAL. IV SCH ×4 (06:09→23:47)
[2018-02-12 06:25] LABS: BASO # 0.1 x10^3/uL (0.0-0.2); BASO % 1 % (0-3); EOS # 0.2 x10^3/uL (0.0-0.7); EOS % 3 % (0-3); HEMATOCRIT 36.2 % (39.0-53.0); HEMOGLOBIN 12.2 g/dL (13.0-17.5); LYMPH # 1.9 x10^3/uL (1.0-4.8); LYMPH % 34 % (24-48); MEAN CORPUSCULAR HEMOGLOBIN 30 pg (25-35); MEAN CORPUSCULAR HGB CONC 34 g/dL (31-37); MEAN CORPUSCULAR VOLUME 90 fL (79-100); MONO # 0.6 x10^3/uL (0.0-1.1); MONO % 10 % (0-9); NEUT # 2.9 x10^3uL (1.8-7.7); NEUT % 52 % (31-73); PLATELET COUNT 195 x10^3/uL (140-400); RED BLOOD COUNT 4.01 x10^6/uL (4.30-5.70); RED CELL DISTRIBUTION WIDTH 13.5 % (11.5-14.5); WHITE BLOOD COUNT 5.6 x10^3/uL (4.0-11.0)
[2018-02-12 06:40] LABS: CALCIUM 8.3 mg/dL (8.5-10.1); CREATININE 2.1 mg/dL (0.7-1.3); GFR 38.3; MAGNESIUM 1.8 mg/dL (1.8-2.4); POTASSIUM 4.1 mmol/L (3.5-5.1)
[2018-02-12 07:26] VITALS: BP 169/61
[2018-02-12] MEDS: ASPIRIN CHEWABLE 81 MG TABLET. PO SCH (08:52)
[2018-02-12] MEDS: CLOPIDOGREL BISULFATE 75 MG TABLET PO SCH (08:52)
[2018-02-12] MEDS: METOCLOPRAMIDE HCL 10 MG/2 ML VIAL. IV SCH ×4 (08:53→20:49)
[2018-02-12] MEDS: PANTOPRAZOLE IV PUSH 40 MG VIAL. IVP SCH ×2 (08:53→17:17)
[2018-02-12] MEDS: ALLOPURINOL 100 MG TABLET. PO SCH ×2 (08:54→20:49)
[2018-02-12] MEDS: CARVEDILOL 12.5 MG TABLET. PO SCH ×2 (08:54→17:18)
[2018-02-12] MEDS: TIMOLOL 0.25% OPHTH SOLUTION 5ML BOTTLE. OU SCH (08:55)
[2018-02-12] MEDS ORDERED: LOSARTAN POTASSIUM 50 MG TABLET. PO SCH (09:00)
[2018-02-12] MEDS: INSULIN LISPRO 300 UNITS/3 ML INSULN.PEN. SQ SCH ×3 (09:17→17:33)
--- NOTE | 2018-02-12 09:34 | RAD ---
EXAM: PA and lateral views of the chest DATE: 02/11/2018 2:56 PM INDICATION: EPIGASTRIC AND CHEST PAIN COMPARISON: 01/26/2018 FINDINGS: Right upper extremity PICC tip projects over the proximal SVC. The heart is not enlarged. Mediastinal and hilar contours are normal. No focal parenchymal airspace opacity. No pleural effusion or pneumothorax. IMPRESSION: 1. No radiographic evidence for acute cardiopulmonary process. Electronically signed by: Marc Alston MD (02/12/2018 9:30 AM) [facility]
[2018-02-12 10:46] VITALS: BP 137/73
--- NOTE | 2018-02-12 11:17 | PDOC ---
SURGICAL PROGRESS NOTE Subjective sleeping but awakens easily still has epigastric pain Vital Signs Vital Signs Date Time Temp Pulse Resp B/P (MAP) Pulse Ox O2 Delivery O2 Flow Rate FiO2 02/12/18 10:46 98.9 83 18 137/73 (94) 97 Room Air 98.9 I&O Intake and Output 02/12/18 07:00 Intake Total 1170 ml Balance 1170 ml Intake Oral 170 ml IV Total 1000 ml # Voids 5 # Bowel Movements 1 PATIENT HAS A TORO: No Abdomen: Soft, Other (obese, soft, reducible umbilical fullness) Labs Laboratory Tests Test 02/10/18 16:05 02/10/18 22:12 02/11/18 05:46 02/11/18 07:41 White Blood Count 6.2 x10^3/uL (4.0-11.0) 6.7 x10^3/uL (4.0-11.0) Red Blood Count 4.35 x10^6/uL (4.30-5.70) 4.21 x10^6/uL (4.30-5.70) Hemoglobin 13.2 g/dL (13.0-17.5) 12.9 g/dL (13.0-17.5) Hematocrit 40.5 % (39.0-53.0) 37.7 % (39.0-53.0) Mean Corpuscular Volume 93 fL (79-100) 90 fL (79-100) Mean Corpuscular Hemoglobin 30 pg (25-35) 31 pg (25-35) Mean Corpuscular Hemoglobin Concent 33 g/dL (31-37) 34 g/dL (31-37) Red Cell Distribution Width 13.7 % (11.5-14.5) 13.4 % (11.5-14.5) Platelet Count 222 x10^3/uL (140-400) 227 x10^3/uL (140-400) Neutrophils (%) (Auto) 53 % (31-73) 52 % (31-73) Lymphocytes (%) (Auto) 37 % (24-48) 34 % (24-48) Monocytes (%) (Auto) 9 % (0-9) 11 % (0-9) Eosinophils (%) (Auto) 1 % (0-3) 2 % (0-3) Basophils (%) (Auto) 1 % (0-3) 1 % (0-3) Neutrophils # (Auto) 3.2 x10^3uL (1.8-7.7) 3.5 x10^3uL (1.8-7.7) Lymphocytes # (Auto) 2.3 x10^3/uL (1.0-4.8) 2.3 x10^3/uL (1.0-4.8) Monocytes # (Auto) 0.6 x10^3/uL (0.0-1.1) 0.8 x10^3/uL (0.0-1.1) Eosinophils # (Auto) 0.1 x10^3/uL (0.0-0.7) 0.1 x10^3/uL (0.0-0.7) Basophils # (Auto) 0.1 x10^3/uL (0.0-0.2) 0.1 x10^3/uL (0.0-0.2) Sodium Level 132 mmol/L (136-145) 134 mmol/L (136-145) Potassium Level 4.2 mmol/L (3.5-5.1) 4.1 mmol/L (3.5-5.1) Chloride Level 98 mmol/L (98-107) 98 mmol/L (98-107) Carbon Dioxide Level 27 mmol/L (21-32) 33 mmol/L (21-32) Anion Gap 7 (6-14) 3 (6-14) Blood Urea Nitrogen 30 mg/dL (8-26) 30 mg/dL (8-26) Creatinine 2.5 mg/dL (0.7-1.3) 2.3 mg/dL (0.7-1.3) Estimated GFR (Cockcroft-Gault) 31.3 34.5 BUN/Creatinine Ratio 12 (6-20) Glucose Level 489 mg/dL (70-99) 319 mg/dL (70-99) Calcium Level 9.1 mg/dL (8.5-10.1) 8.7 mg/dL (8.5-10.1) Magnesium Level 2.0 mg/dL (1.8-2.4) Total Bilirubin 0.4 mg/dL (0.2-1.0) Aspartate Amino Transf (AST/SGOT) 29 U/L (15-37) Alanine Aminotransferase (ALT/SGPT) 31 U/L (16-63) Alkaline Phosphatase 100 U/L (46-116) Total Protein 7.7 g/dL (6.4-8.2) Albumin 3.5 g/dL (3.4-5.0) Albumin/Globulin Ratio 0.8 (1.0-1.7) Amylase Level 102 U/L (25-115) Lipase 668 U/L (73-393) Glucose (Fingerstick) 390 mg/dL (70-99) 283 mg/dL (70-99) Test 02/11/18 11:32 02/11/18 17:20 02/11/18 20:28 02/12/18 06:00 Glucose (Fingerstick) 207 mg/dL (70-99) 277 mg/dL (70-99) 263 mg/dL (70-99) White Blood Count 5.6 x10^3/uL (4.0-11.0) Red Blood Count 4.01 x10^6/uL (4.30-5.70) Hemoglobin 12.2 g/dL (13.0-17.5) Hematocrit 36.2 % (39.0-53.0) Mean Corpuscular Volume 90 fL (79-100) Mean Corpuscular Hemoglobin 30 pg (25-35) Mean Corpuscular Hemoglobin Concent 34 g/dL (31-37) Red Cell Distribution Width 13.5 % (11.5-14.5) Platelet Count 195 x10^3/uL (140-400) Neutrophils (%) (Auto) 52 % (31-73) Lymphocytes (%) (Auto) 34 % (24-48) Monocytes (%) (Auto) 10 % (0-9) Eosinophils (%) (Auto) 3 % (0-3) Basophils (%) (Auto) 1 % (0-3) Neutrophils # (Auto) 2.9 x10^3uL (1.8-7.7) Lymphocytes # (Auto) 1.9 x10^3/uL (1.0-4.8) Monocytes # (Auto) 0.6 x10^3/uL (0.0-1.1) Eosinophils # (Auto) 0.2 x10^3/uL (0.0-0.7) Basophils # (Auto) 0.1 x10^3/uL (0.0-0.2) Sodium Level 138 mmol/L (136-145) Potassium Level 4.1 mmol/L (3.5-5.1) Chloride Level 102 mmol/L (98-107) Carbon Dioxide Level 31 mmol/L (21-32) Anion Gap 5 (6-14) Blood Urea Nitrogen 26 mg/dL (8-26) Creatinine 2.1 mg/dL (0.7-1.3) Estimated GFR (Cockcroft-Gault) 38.3 Glucose Level 305 mg/dL (70-99) Calcium Level 8.3 mg/dL (8.5-10.1) Magnesium Level 1.8 mg/dL (1.8-2.4) Lipase 340 U/L (73-393) Test 02/12/18 07:22 Glucose (Fingerstick) 283 mg/dL (70-99) Laboratory Tests Test 02/11/18 11:32 02/11/18 17:20 02/11/18 20:28 02/12/18 06:00 Glucose (Fingerstick) 207 mg/dL (70-99) 277 mg/dL (70-99) 263 mg/dL (70-99) White Blood Count 5.6 x10^3/uL (4.0-11.0) Red Blood Count 4.01 x10^6/uL (4.30-5.70) Hemoglobin 12.2 g/dL (13.0-17.5) Hematocrit 36.2 % (39.0-53.0) Mean Corpuscular Volume 90 fL (79-100) Mean Corpuscular Hemoglobin 30 pg (25-35) Mean Corpuscular Hemoglobin Concent 34 g/dL (31-37) Red Cell Distribution Width 13.5 % (11.5-14.5) Platelet Count 195 x10^3/uL (140-400) Neutrophils (%) (Auto) 52 % (31-73) Lymphocytes (%) (Auto) 34 % (24-48) Monocytes (%) (Auto) 10 % (0-9) Eosinophils (%) (Auto) 3 % (0-3) Basophils (%) (Auto) 1 % (0-3) Neutrophils # (Auto) 2.9 x10^3uL (1.8-7.7) Lymphocytes # (Auto) 1.9 x10^3/uL (1.0-4.8) Monocytes # (Auto) 0.6 x10^3/uL (0.0-1.1) Eosinophils # (Auto) 0.2 x10^3/uL (0.0-0.7) Basophils # (Auto) 0.1 x10^3/uL (0.0-0.2) Sodium Level 138 mmol/L (136-145) Potassium Level 4.1 mmol/L (3.5-5.1) Chloride Level 102 mmol/L (98-107) Carbon Dioxide Level 31 mmol/L (21-32) Anion Gap 5 (6-14) Blood Urea Nitrogen 26 mg/dL (8-26) Creatinine 2.1 mg/dL (0.7-1.3) Estimated GFR (Cockcroft-Gault) 38.3 Glucose Level 305 mg/dL (70-99) Calcium Level 8.3 mg/dL (8.5-10.1) Magnesium Level 1.8 mg/dL (1.8-2.4) Lipase 340 U/L (73-393) Test 02/12/18 07:22 Glucose (Fingerstick) 283 mg/dL (70-99) I have reviewed the following CT done yesterday reviewed Assessment/Plan epigastric pain reducible umbilical hernia (unlikely source of pain) obesity no surgical recommendations will d/w ISHA Ferreira MD Feb 12, 2018 11:17
--- NOTE | 2018-02-12 11:40 | RAD ---
CT abdomen and pelvis without contrast: Reason for examination: Worsening abdominal pain. Comparison is made to previous examination dated 01/30/2018. Helical images were obtained through the abdomen pelvis with no intravenous or oral contrast administered. Reconstruction was performed in sagittal and coronal planes. Exposure: One or more of the following individualized dose reduction techniques were utilized for this examination: 1. Automated exposure control 2. Adjustment of the mA and/or kV according to patient size 3. Use of iterative reconstruction technique. The lung bases continue show a small focus of some minimal nodularity anterior medially at the right middle lobe which is noncalcified. There is also some linear atelectasis in the left lingula which is unchanged. No acute process is seen at the lung bases. There continues to be some calcification in the subcarinal mediastinum consistent with some calcified adenopathy. No abnormality seen at the liver. Spleen shows calcified granuloma but is unchanged. The gallbladder shows no gallstones but again shows some hyperdensity layering posteriorly but recent CT examination showed no abnormality of the gallbladder. No abnormalities are seen at the pancreas. The adrenal glands continue to show a 1.5 cm nodule consistent with adenoma in the left adrenal gland. The abdominal aorta and inferior vena cava show no acute abnormalities but there are some arteriosclerotic vascular calcification. No abnormality seen at the appendix. The intestinal tract shows no abnormally dilated loops of bowel or thickened bowel li. There is no evidence of diverticulosis or diverticulitis. There is no evidence of bowel ischemia. The left kidney is normal in size and position with no hydronephrosis, renal calculi, masses or obstructive uropathy. The right kidney is located in the pelvis and shows no mass, renal calculus, hydronephrosis or obstructive uropathy. No abnormality seen in the bladder. Prostate gland shows some calcification but no enlargement. Seminal vesicles are symmetric. No free fluid or free air is seen in the abdomen or pelvis. IMPRESSION: Small noncalcified pulmonary nodule anterior medially in the right lingula which is unchanged. Recommend follow-up according to Fleischner Society guidelines. Linear atelectasis at the left lingula which is unchanged. Calcifications in the subcarinal mediastinum consistent with calcified adenopathy and unchanged. 1.5 cm nodule in the left adrenal gland adenoma which is unchanged. Right pelvic kidney. Electronically signed by: Ivelisse Ponce MD (02/12/2018 11:35 AM) [facility]
[2018-02-12] MEDS ORDERED: INSULIN LISPRO 300 UNITS/3 ML INSULN.PEN. SQ SCH (12:30)
--- NOTE | 2018-02-12 12:37 | PDOC ---
PROGRESS NOTES Subjective Subjective ct scan of abdomen and pelvis showed no gallstones and pancreas was okay. lipase lower. amylase okay. has small right lingular non calcified lung nodule. he is a smoker. less epigastric abdominal garrison. seen by dr. Rojas. lab reviewed.blood sugars are high. Objective Objective Vital Signs Date Time Temp Pulse Resp B/P (MAP) Pulse Ox O2 Delivery O2 Flow Rate FiO2 02/12/18 10:46 98.9 83 18 137/73 (94) 97 Room Air 98.9 Intake and Output 02/12/18 07:01 Intake Total 1170 ml Balance 1170 ml Intake Oral 170 ml IV Total 1000 ml # Voids 5 # Bowel Movements 1 Physical Exam Abdomen: Soft, Other (epigastric tenderness without guarding) Heart: Regular rate, Normal S1, Normal S2 Extremities: No edema General: Alert HEENT: Atraumatic Lungs: Clear to auscultation Neuro: Normal speech Psych/Mental Status: Mental status NL Skin: No rashes Assessment Assessment 1. Epigastric abdominal pain associated with poor intake of food and weight loss. ct scan of abdomen and plelvis and GI emptying scan negative and abdominal ultrasound negative. the last week. less abdominal pain 2. Acute kidney injury on top of chronic kidney disease stage 3, BEN improved with iv fluids. 3. Diabetes mellitus, hyperglycemia as he was not taking his insulin at home. 4. Hypertension. bp is okay 5. Peripheral arterial disease. Morbid obesity small right lung nodule in a smoker Plan Plan of Care advance to full liquids increase insulin continue iv zofran and iv metoclopramide continue prn iv morphine and oral prn norco trial of gabapentin renal dose for possible diabetic neuropathic pain decrease iv fluids consult dr. cool Comment Review of Relevant I have reviewed the following items puneet (where applicable) has been applied. Labs Laboratory Tests Test 02/10/18 16:05 02/10/18 22:12 02/11/18 05:46 02/11/18 07:41 White Blood Count 6.2 x10^3/uL (4.0-11.0) 6.7 x10^3/uL (4.0-11.0) Red Blood Count 4.35 x10^6/uL (4.30-5.70) 4.21 x10^6/uL (4.30-5.70) Hemoglobin 13.2 g/dL (13.0-17.5) 12.9 g/dL (13.0-17.5) Hematocrit 40.5 % (39.0-53.0) 37.7 % (39.0-53.0) Mean Corpuscular Volume 93 fL (79-100) 90 fL (79-100) Mean Corpuscular Hemoglobin 30 pg (25-35) 31 pg (25-35) Mean Corpuscular Hemoglobin Concent 33 g/dL (31-37) 34 g/dL (31-37) Red Cell Distribution Width 13.7 % (11.5-14.5) 13.4 % (11.5-14.5) Platelet Count 222 x10^3/uL (140-400) 227 x10^3/uL (140-400) Neutrophils (%) (Auto) 53 % (31-73) 52 % (31-73) Lymphocytes (%) (Auto) 37 % (24-48) 34 % (24-48) Monocytes (%) (Auto) 9 % (0-9) 11 % (0-9) Eosinophils (%) (Auto) 1 % (0-3) 2 % (0-3) Basophils (%) (Auto) 1 % (0-3) 1 % (0-3) Neutrophils # (Auto) 3.2 x10^3uL (1.8-7.7) 3.5 x10^3uL (1.8-7.7) Lymphocytes # (Auto) 2.3 x10^3/uL (1.0-4.8) 2.3 x10^3/uL (1.0-4.8) Monocytes # (Auto) 0.6 x10^3/uL (0.0-1.1) 0.8 x10^3/uL (0.0-1.1) Eosinophils # (Auto) 0.1 x10^3/uL (0.0-0.7) 0.1 x10^3/uL (0.0-0.7) Basophils # (Auto) 0.1 x10^3/uL (0.0-0.2) 0.1 x10^3/uL (0.0-0.2) Sodium Level 132 mmol/L (136-145) 134 mmol/L (136-145) Potassium Level 4.2 mmol/L (3.5-5.1) 4.1 mmol/L (3.5-5.1) Chloride Level 98 mmol/L (98-107) 98 mmol/L (98-107) Carbon Dioxide Level 27 mmol/L (21-32) 33 mmol/L (21-32) Anion Gap 7 (6-14) 3 (6-14) Blood Urea Nitrogen 30 mg/dL (8-26) 30 mg/dL (8-26) Creatinine 2.5 mg/dL (0.7-1.3) 2.3 mg/dL (0.7-1.3) Estimated GFR (Cockcroft-Gault) 31.3 34.5 BUN/Creatinine Ratio 12 (6-20) Glucose Level 489 mg/dL (70-99) 319 mg/dL (70-99) Calcium Level 9.1 mg/dL (8.5-10.1) 8.7 mg/dL (8.5-10.1) Magnesium Level 2.0 mg/dL (1.8-2.4) Total Bilirubin 0.4 mg/dL (0.2-1.0) Aspartate Amino Transf (AST/SGOT) 29 U/L (15-37) Alanine Aminotransferase (ALT/SGPT) 31 U/L (16-63) Alkaline Phosphatase 100 U/L (46-116) Total Protein 7.7 g/dL (6.4-8.2) Albumin 3.5 g/dL (3.4-5.0) Albumin/Globulin Ratio 0.8 (1.0-1.7) Amylase Level 102 U/L (25-115) Lipase 668 U/L (73-393) Glucose (Fingerstick) 390 mg/dL (70-99) 283 mg/dL (70-99) Test 02/11/18 11:32 02/11/18 17:20 02/11/18 20:28 02/12/18 06:00 Glucose (Fingerstick) 207 mg/dL (70-99) 277 mg/dL (70-99) 263 mg/dL (70-99) White Blood Count 5.6 x10^3/uL (4.0-11.0) Red Blood Count 4.01 x10^6/uL (4.30-5.70) Hemoglobin 12.2 g/dL (13.0-17.5) Hematocrit 36.2 % (39.0-53.0) Mean Corpuscular Volume 90 fL (79-100) Mean Corpuscular Hemoglobin 30 pg (25-35) Mean Corpuscular Hemoglobin Concent 34 g/dL (31-37) Red Cell Distribution Width 13.5 % (11.5-14.5) Platelet Count 195 x10^3/uL (140-400) Neutrophils (%) (Auto) 52 % (31-73) Lymphocytes (%) (Auto) 34 % (24-48) Monocytes (%) (Auto) 10 % (0-9) Eosinophils (%) (Auto) 3 % (0-3) Basophils (%) (Auto) 1 % (0-3) Neutrophils # (Auto) 2.9 x10^3uL (1.8-7.7) Lymphocytes # (Auto) 1.9 x10^3/uL (1.0-4.8) Monocytes # (Auto) 0.6 x10^3/uL (0.0-1.1) Eosinophils # (Auto) 0.2 x10^3/uL (0.0-0.7) Basophils # (Auto) 0.1 x10^3/uL (0.0-0.2) Sodium Level 138 mmol/L (136-145) Potassium Level 4.1 mmol/L (3.5-5.1) Chloride Level 102 mmol/L (98-107) Carbon Dioxide Level 31 mmol/L (21-32) Anion Gap 5 (6-14) Blood Urea Nitrogen 26 mg/dL (8-26) Creatinine 2.1 mg/dL (0.7-1.3) Estimated GFR (Cockcroft-Gault) 38.3 Glucose Level 305 mg/dL (70-99) Calcium Level 8.3 mg/dL (8.5-10.1) Magnesium Level 1.8 mg/dL (1.8-2.4) Lipase 340 U/L (73-393) Test 02/12/18 07:22 02/12/18 11:24 Glucose (Fingerstick) 283 mg/dL (70-99) 398 mg/dL (70-99) Laboratory Tests Test 02/11/18 17:20 02/11/18 20:28 02/12/18 06:00 02/12/18 07:22 Glucose (Fingerstick) 277 mg/dL (70-99) 263 mg/dL (70-99) 283 mg/dL (70-99) White Blood Count 5.6 x10^3/uL (4.0-11.0) Red Blood Count 4.01 x10^6/uL (4.30-5.70) Hemoglobin 12.2 g/dL (13.0-17.5) Hematocrit 36.2 % (39.0-53.0) Mean Corpuscular Volume 90 fL (79-100) Mean Corpuscular Hemoglobin 30 pg (25-35) Mean Corpuscular Hemoglobin Concent 34 g/dL (31-37) Red Cell Distribution Width 13.5 % (11.5-14.5) Platelet Count 195 x10^3/uL (140-400) Neutrophils (%) (Auto) 52 % (31-73) Lymphocytes (%) (Auto) 34 % (24-48) Monocytes (%) (Auto) 10 % (0-9) Eosinophils (%) (Auto) 3 % (0-3) Basophils (%) (Auto) 1 % (0-3) Neutrophils # (Auto) 2.9 x10^3uL (1.8-7.7) Lymphocytes # (Auto) 1.9 x10^3/uL (1.0-4.8) Monocytes # (Auto) 0.6 x10^3/uL (0.0-1.1) Eosinophils # (Auto) 0.2 x10^3/uL (0.0-0.7) Basophils # (Auto) 0.1 x10^3/uL (0.0-0.2) Sodium Level 138 mmol/L (136-145) Potassium Level 4.1 mmol/L (3.5-5.1) Chloride Level 102 mmol/L (98-107) Carbon Dioxide Level 31 mmol/L (21-32) Anion Gap 5 (6-14) Blood Urea Nitrogen 26 mg/dL (8-26) Creatinine 2.1 mg/dL (0.7-1.3) Estimated GFR (Cockcroft-Gault) 38.3 Glucose Level 305 mg/dL (70-99) Calcium Level 8.3 mg/dL (8.5-10.1) Magnesium Level 1.8 mg/dL (1.8-2.4) Lipase 340 U/L (73-393) Test 02/12/18 11:24 Glucose (Fingerstick) 398 mg/dL (70-99) Medications Current Medications Sodium Chloride 1,000 ml @ 60 mls/hr [id number] IV Last administered on 08:39; Start 02/10/18 at 15:30; Stop 02/11/18 at 10:55; Status DC Allopurinol (Zyloprim) 100 mg BID PO Last administered on 02/12/18 08:54; Start 02/10/18 at 21:00 Aspirin (Children'S Aspirin) 81 mg DAILYWBKFT PO Last administered on 08:52; Start 02/10/18 at 17:00 Clopidogrel Bisulfate (Plavix) 75 mg DAILY PO Last administered on 02/12/18 08 :52; Start 02/10/18 at 17:00 Furosemide (Lasix) 80 mg [id number] PO Last administered on 02/11/18 08:38; Start 02/10/18 at 17:00; Stop 02/11/18 at 10:55; Status DC Metoclopramide HCl (Reglan) 5 mg TIDACHC PO ; Start 02/10/18 at 17:00; Status UNV Pantoprazole Sodium (PROTONIX VIAL for IV PUSH) 40 mg DAILYAC IVP ; Start at 17:00; Stop 02/10/18 at 17:00; Status DC Metoclopramide HCl (Reglan Vial) 10 mg QIDACHS IV Last administered on 11:43; Start 02/10/18 at 17:00 Pantoprazole Sodium (PROTONIX VIAL for IV PUSH) 40 mg BIDAC IVP Last administered on 02/12/18 08:53; Start 02/10/18 at 17:00 Timolol Maleate (Timoptic 0.25% Oph) 1 drop DAILY OU Last administered on 08:39; Start 02/11/18 at 09:00 Atorvastatin Calcium (Lipitor) 40 mg HS PO Last administered on 02/11/18at 20:38 ; Start 02/10/18 at 21:00 Carvedilol (Coreg) 12.5 mg BIDWMEALS PO Last administered on 02/11/18at 08:38; Start 02/10/18 at 21:00; Stop 02/11/18 at 10:55; Status DC Clonidine HCl (Catapres Tts-1) 1 patch WEEKLY TD Last administered on at 08:37; Start 02/11/18 at 09:00; Stop 02/11/18 at 10:55; Status DC Acetaminophen/ Hydrocodone Bitart (Lortab 5/325) 1 tab PRN Q4HRS PRN PO MODERATE-SEVERE PAIN; Start 02/10/18 at 16:45 Losartan Potassium (Cozaar) 50 mg DAILY PO Last administered on 02/11/18at 08:39 ; Start 02/11/18 at 09:00; Stop 02/11/18 at 10:56; Status DC Non-Formulary Medication (Pantoprazole Sodium (Protonix)) 40 mg DAILY PO ; Start 02/11/18 at 09:00; Status UNV Acetaminophen (Tylenol) 325 mg PRN Q4HRS PRN PO MILD PAIN / TEMP; Start at 17:00 Ondansetron HCl (Zofran) 4 mg Q6HRS IV Last administered on 02/12/18at 11:43; Start 02/10/18 at 18:00 Lorazepam (Ativan) 1 mg 1X ONCE IV ; Start 02/10/18 at 17:30; Stop 02/10/18 at 22:30; Status DC Insulin Human Lispro (HumaLOG) 6 units TIDWMEALS SQ Last administered on at 08:00; Start 02/10/18 at 17:30; Stop 02/11/18 at 10:56; Status DC Insulin Glargine (Lantus) 20 units QHS SQ Last administered on 02/10/18at 22:49 ; Start 02/10/18 at 21:00; Stop 02/11/18 at 10:55; Status DC Morphine Sulfate (Morphine Sulfate) 2 mg PRN Q4HRS PRN IV SEVERE PAIN Last administered on 02/12/18at 02:57; Start 02/10/18 at 17:00 Morphine Sulfate (Morphine Sulfate) 1 mg PRN Q4HRS PRN IV MODERATE PAIN; Start 02/10/18 at 17:00 Lorazepam (Ativan) 1 mg 1X ONCE IV ; Start 02/11/18 at 08:00; Stop 02/11/18 at 08:01; Status Cancel Carvedilol (Coreg) 25 mg BIDWMEALS PO Last administered on 02/12/18at 08:54; Start 02/11/18 at 17:00 Insulin Glargine (Lantus) 40 units QHS SQ Last administered on 02/11/18at 20:41 ; Start 02/11/18 at 21:00 Insulin Human Lispro (HumaLOG) 12 units TIDWMEALS SQ Last administered on 11:51; Start 02/11/18 at 12:00 Losartan Potassium (Cozaar) 100 mg DAILY PO Last administered on 02/12/18at 08: 53; Start 02/12/18 at 09:00 Clonidine HCl (Catapres Tts-2) 1 patch WEEKLY TD Last administered on at 12:21; Start 02/11/18 at 12:00 Sodium Chloride 1,000 ml @ 75 mls/hr [id number] IV Last administered on at 01:13; Start 02/11/18 at 12:00 Al Hydroxide/Mg Hydroxide (Mylanta Plus Xs) 30 ml PRN Q2HR PRN PO HEARTBURN / GAS; Start 02/11/18 at 11:00 Lactulose (Lactulose) 20 gm Q2H PO Last administered on 02/11/18at 16:56; Start 02/11/18 at 16:00; Stop 02/11/18 at 18:01; Status DC Lorazepam (Ativan) 1 mg 1X ONCE IV Last administered on 02/11/18at 13:41; Start 02/11/18 at 14:00; Stop 02/11/18 at 14:01; Status DC Active Scripts Active Humalog (Insulin Lispro) 100 Unit/1 Ml Insuln.pen 16 Units SQ TIDAC 30 Days Lantus Solostar (Insulin Glargine,Hum.rec.anlog) 100 Unit/1 Ml Insuln.pen 40 Units SQ QHS 30 Days Amlodipine Besylate 5 Mg Tablet 5 Mg PO DAILY 30 Days Metoclopramide Hcl 10 Mg Tablet 10 Mg PO TIDACHC Children's Aspirin (Aspirin) 81 Mg Tab.chew 81 Mg PO DAILYWBKFT Reported Protonix (Pantoprazole Sodium) 20 Mg Tablet. 40 Mg PO DAILY Hydrocodone-Apap 5-325 (Hydrocodone Bit/Acetaminophen) 1 Each Tablet 1 Tab PO Q4HRS PRN Losartan Potassium 50 Mg Tablet 50 Mg PO DAILY Catapres-Tts 1 (Clonidine) 1 Each Patch.tdwk 1 Each TD WEEKLY Carvedilol 12.5 Mg Tablet 1 Tab PO BID Omeprazole 40 Mg Capsule.dr 1 Cap PO DAILY Clopidogrel (Clopidogrel Bisulfate) 75 Mg Tablet 1 Tab PO DAILY Allopurinol 100 Mg Tablet 1 Tab PO BID Furosemide 80 Mg Tablet 1 Tab PO BID Centrum Silver Tablet (Multivits-Min/Fa/Lycopene/Lut) 1 Each Tablet 1 Each PO Fish Oil ([place]-3 Fatty Acids) 300 Mg Capsule 1,000 Mg PO DAILY Atorvastatin Calcium 40 Mg Tablet 40 Mg PO HS Betimol (Timolol) 5 Ml Drops 5 Ml OP DAILY Vitals/I & O Vital Sign - Last 24 Hours 02/11/18 02/11/18 02/11/18 02/11/18 14:44 16:58 19:05 19:51 Temp 97.7 97.6 97.7 97.6 Pulse 64 64 67 Resp 18 18 B/P (MAP) 124/73 (90) 124/73 149/71 (97) Pulse Ox 97 97 O2 Delivery Room Air Room Air Room Air 02/11/18 02/12/18 02/12/18 02/12/18 23:35 02:57 03:13 03:47 Temp 98.3 98.0 98.3 98.0 Pulse 72 84 Resp 16 18 16 20 B/P (MAP) 155/69 (97) 157/67 (97) Pulse Ox 97 97 97 93 O2 Delivery Room Air Room Air Room Air Room Air 02/12/18 02/12/18 02/12/18 02/12/18 07:26 08:53 08:54 10:46 Temp 98.3 98.9 98.3 98.9 Pulse 77 77 77 83 Resp 20 18 B/P (MAP) 169/61 (97) 169/61 169/61 137/73 (94) Pulse Ox 92 97 O2 Delivery Room Air Room Air Intake and Output 802/11/18 02/12/18 15:01 23:01 07:01 Intake Total 0 ml 1170 ml Balance 0 ml 1170 ml JONNY JOHN MD Feb 12, 2018 12:37
[2018-02-12 14:57] VITALS: BP 165/65
[2018-02-12] MEDS: GABAPENTIN 100 MG CAPSULE. PO SCH ×2 (15:13→20:49)
[2018-02-12] MEDS: HYDROcodone/APAP 5/325MG 1 TAB TABLET PO PRN (17:17)
[2018-02-12 19:40] VITALS: BP 131/59
[2018-02-12] MEDS: ATORVASTATIN CALCIUM 40 MG TABLET. PO SCH (20:49)
[2018-02-12] MEDS ORDERED: INSULIN GLARGINE 300 UNITS/3 ML INSULN.PEN. SQ SCH (21:00)
[2018-02-12 23:40] VITALS: BP 160/63
[2018-02-13 03:40] VITALS: BP 144/53
[2018-02-13] MEDS: ONDANSETRON PF 4 MG/2 ML VIAL. IV SCH ×3 (05:59→15:20)
[2018-02-13 06:16] LABS: BASO % 1 % (0-3); EOS # 0.2 x10^3/uL (0.0-0.7); EOS % 4 % (0-3); HEMATOCRIT 33.6 % (39.0-53.0); HEMOGLOBIN 11.2 g/dL (13.0-17.5); LYMPH # 1.3 x10^3/uL (1.0-4.8); LYMPH % 32 % (24-48); MEAN CORPUSCULAR HEMOGLOBIN 30 pg (25-35); MEAN CORPUSCULAR HGB CONC 33 g/dL (31-37); MEAN CORPUSCULAR VOLUME 90 fL (79-100); MONO # 0.5 x10^3/uL (0.0-1.1); MONO % 12 % (0-9); NEUT # 2.1 x10^3uL (1.8-7.7); NEUT % 51 % (31-73); PLATELET COUNT 175 x10^3/uL (140-400); RED BLOOD COUNT 3.73 x10^6/uL (4.30-5.70); RED CELL DISTRIBUTION WIDTH 13.6 % (11.5-14.5); WHITE BLOOD COUNT 4.1 x10^3/uL (4.0-11.0)
[2018-02-13 06:27] LABS: CALCIUM 8.3 mg/dL (8.5-10.1); CREATININE 1.6 mg/dL (0.7-1.3); GFR 52.4; POTASSIUM 3.9 mmol/L (3.5-5.1)
[2018-02-13 07:00] VITALS: BP 166/66
[2018-02-13] MEDS: INSULIN LISPRO 300 UNITS/3 ML INSULN.PEN. SQ SCH ×3 (08:00→17:21)
--- NOTE | 2018-02-13 08:37 | PDOC ---
PROGRESS NOTES Subjective Subjective epigastric pain better 3/10 and ate full liquid breakfast . has some nausea but no vomiting. complains of low back pain as he says he slept all day yesterday. lab reviewed. fbs 84 Objective Objective Vital Signs Date Time Temp Pulse Resp B/P (MAP) Pulse Ox O2 Delivery O2 Flow Rate FiO2 02/13/18 07:54 Room Air 02/13/18 07:00 98.1 65 18 166/66 (99) 99 98.1 Intake and Output 02/13/18 07:00 Intake Total 1000 ml Balance 1000 ml Intake Oral 1000 ml # Voids 3 Physical Exam Abdomen: Soft, Other (epigastric tenderness) Heart: Regular rate, Normal S1, Normal S2 Extremities: No edema General: Alert HEENT: Atraumatic Lungs: Clear to auscultation Neuro: Normal speech Psych/Mental Status: Mental status NL Skin: No rashes Assessment Assessment 1. Epigastric abdominal pain associated with poor intake of food and weight loss. ct scan of abdomen and pelvis and GI emptying scan negative and abdominal ultrasound negative. the last week. less abdominal pain 2. Acute kidney injury resolved on top of chronic kidney disease stage 3, 3. Diabetes mellitus, hyperglycemia as he was not taking his insulin at home. 4. Hypertension. bp is okay 5. Peripheral arterial disease. Morbid obesity small right lung nodule in a smoker Plan Plan of Care ct chest today advance to soft solid ada diet continue iv zofran and iv metoclopramide and iv protonix d/c iv fluids Comment Review of Relevant I have reviewed the following items puneet (where applicable) has been applied. Labs Laboratory Tests Test 02/11/18 11:32 02/11/18 17:20 02/11/18 20:28 02/12/18 06:00 Glucose (Fingerstick) 207 mg/dL (70-99) 277 mg/dL (70-99) 263 mg/dL (70-99) White Blood Count 5.6 x10^3/uL (4.0-11.0) Red Blood Count 4.01 x10^6/uL (4.30-5.70) Hemoglobin 12.2 g/dL (13.0-17.5) Hematocrit 36.2 % (39.0-53.0) Mean Corpuscular Volume 90 fL (79-100) Mean Corpuscular Hemoglobin 30 pg (25-35) Mean Corpuscular Hemoglobin Concent 34 g/dL (31-37) Red Cell Distribution Width 13.5 % (11.5-14.5) Platelet Count 195 x10^3/uL (140-400) Neutrophils (%) (Auto) 52 % (31-73) Lymphocytes (%) (Auto) 34 % (24-48) Monocytes (%) (Auto) 10 % (0-9) Eosinophils (%) (Auto) 3 % (0-3) Basophils (%) (Auto) 1 % (0-3) Neutrophils # (Auto) 2.9 x10^3uL (1.8-7.7) Lymphocytes # (Auto) 1.9 x10^3/uL (1.0-4.8) Monocytes # (Auto) 0.6 x10^3/uL (0.0-1.1) Eosinophils # (Auto) 0.2 x10^3/uL (0.0-0.7) Basophils # (Auto) 0.1 x10^3/uL (0.0-0.2) Sodium Level 138 mmol/L (136-145) Potassium Level 4.1 mmol/L (3.5-5.1) Chloride Level 102 mmol/L (98-107) Carbon Dioxide Level 31 mmol/L (21-32) Anion Gap 5 (6-14) Blood Urea Nitrogen 26 mg/dL (8-26) Creatinine 2.1 mg/dL (0.7-1.3) Estimated GFR (Cockcroft-Gault) 38.3 Glucose Level 305 mg/dL (70-99) Calcium Level 8.3 mg/dL (8.5-10.1) Magnesium Level 1.8 mg/dL (1.8-2.4) Lipase 340 U/L (73-393) Test 02/12/18 07:22 02/12/18 11:24 02/12/18 16:47 02/12/18 21:09 Glucose (Fingerstick) 283 mg/dL (70-99) 398 mg/dL (70-99) 153 mg/dL (70-99) 234 mg/dL (70-99) Test 02/13/18 06:00 02/13/18 07:46 White Blood Count 4.1 x10^3/uL (4.0-11.0) Red Blood Count 3.73 x10^6/uL (4.30-5.70) Hemoglobin 11.2 g/dL (13.0-17.5) Hematocrit 33.6 % (39.0-53.0) Mean Corpuscular Volume 90 fL (79-100) Mean Corpuscular Hemoglobin 30 pg (25-35) Mean Corpuscular Hemoglobin Concent 33 g/dL (31-37) Red Cell Distribution Width 13.6 % (11.5-14.5) Platelet Count 175 x10^3/uL (140-400) Neutrophils (%) (Auto) 51 % (31-73) Lymphocytes (%) (Auto) 32 % (24-48) Monocytes (%) (Auto) 12 % (0-9) Eosinophils (%) (Auto) 4 % (0-3) Basophils (%) (Auto) 1 % (0-3) Neutrophils # (Auto) 2.1 x10^3uL (1.8-7.7) Lymphocytes # (Auto) 1.3 x10^3/uL (1.0-4.8) Monocytes # (Auto) 0.5 x10^3/uL (0.0-1.1) Eosinophils # (Auto) 0.2 x10^3/uL (0.0-0.7) Basophils # (Auto) 0.0 x10^3/uL (0.0-0.2) Sodium Level 141 mmol/L (136-145) Potassium Level 3.9 mmol/L (3.5-5.1) Chloride Level 108 mmol/L (98-107) Carbon Dioxide Level 29 mmol/L (21-32) Anion Gap 4 (6-14) Blood Urea Nitrogen 19 mg/dL (8-26) Creatinine 1.6 mg/dL (0.7-1.3) Estimated GFR (Cockcroft-Gault) 52.4 Glucose Level 99 mg/dL (70-99) Calcium Level 8.3 mg/dL (8.5-10.1) Glucose (Fingerstick) 84 mg/dL (70-99) Laboratory Tests Test 02/12/18 11:24 02/12/18 16:47 02/12/18 21:09 02/13/18 06:00 Glucose (Fingerstick) 398 mg/dL (70-99) 153 mg/dL (70-99) 234 mg/dL (70-99) White Blood Count 4.1 x10^3/uL (4.0-11.0) Red Blood Count 3.73 x10^6/uL (4.30-5.70) Hemoglobin 11.2 g/dL (13.0-17.5) Hematocrit 33.6 % (39.0-53.0) Mean Corpuscular Volume 90 fL (79-100) Mean Corpuscular Hemoglobin 30 pg (25-35) Mean Corpuscular Hemoglobin Concent 33 g/dL (31-37) Red Cell Distribution Width 13.6 % (11.5-14.5) Platelet Count 175 x10^3/uL (140-400) Neutrophils (%) (Auto) 51 % (31-73) Lymphocytes (%) (Auto) 32 % (24-48) Monocytes (%) (Auto) 12 % (0-9) Eosinophils (%) (Auto) 4 % (0-3) Basophils (%) (Auto) 1 % (0-3) Neutrophils # (Auto) 2.1 x10^3uL (1.8-7.7) Lymphocytes # (Auto) 1.3 x10^3/uL (1.0-4.8) Monocytes # (Auto) 0.5 x10^3/uL (0.0-1.1) Eosinophils # (Auto) 0.2 x10^3/uL (0.0-0.7) Basophils # (Auto) 0.0 x10^3/uL (0.0-0.2) Sodium Level 141 mmol/L (136-145) Potassium Level 3.9 mmol/L (3.5-5.1) Chloride Level 108 mmol/L (98-107) Carbon Dioxide Level 29 mmol/L (21-32) Anion Gap 4 (6-14) Blood Urea Nitrogen 19 mg/dL (8-26) Creatinine 1.6 mg/dL (0.7-1.3) Estimated GFR (Cockcroft-Gault) 52.4 Glucose Level 99 mg/dL (70-99) Calcium Level 8.3 mg/dL (8.5-10.1) Test 02/13/18 07:46 Glucose (Fingerstick) 84 mg/dL (70-99) Medications Current Medications Sodium Chloride 1,000 ml @ 60 mls/hr [id number] IV Last administered on 08:39; Start 02/10/18 at 15:30; Stop 02/11/18 at 10:55; Status DC Allopurinol (Zyloprim) 100 mg BID PO Last administered on 02/12/18 20:49; Start 02/10/18 at 21:00 Aspirin (Children'S Aspirin) 81 mg DAILYWBKFT PO Last administered on 08:52; Start 02/10/18 at 17:00 Clopidogrel Bisulfate (Plavix) 75 mg DAILY PO Last administered on 02/12/18 08 :52; Start 02/10/18 at 17:00 Furosemide (Lasix) 80 mg BID94 PO Last administered on 02/11/18 08:38; Start 02/10/18 at 17:00; Stop 02/11/18 at 10:55; Status DC Metoclopramide HCl (Reglan) 5 mg TIDACHC PO ; Start 02/10/18 at 17:00; Status UNV Pantoprazole Sodium (PROTONIX VIAL for IV PUSH) 40 mg DAILYAC IVP ; Start at 17:00; Stop 02/10/18 at 17:00; Status DC Metoclopramide HCl (Reglan Vial) 10 mg QIDACHS IV Last administered on 20:49; Start 02/10/18 at 17:00 Pantoprazole Sodium (PROTONIX VIAL for IV PUSH) 40 mg BIDAC IVP Last administered on 02/12/18at 17:17; Start 02/10/18 at 17:00 Timolol Maleate (Timoptic 0.25% [facility]) 1 drop DAILY OU Last administered on at 08:39; Start 02/11/18 at 09:00 Atorvastatin Calcium (Lipitor) 40 mg HS PO Last administered on 02/12/18 20:49 ; Start 02/10/18 at 21:00 Carvedilol (Coreg) 12.5 mg BIDWMEALS PO Last administered on 02/11/18 08:38; Start 02/10/18 at 21:00; Stop 02/11/18 at 10:55; Status DC Clonidine HCl (Catapres Tts-1) 1 patch WEEKLY TD Last administered on at 08:37; Start 02/11/18 at 09:00; Stop 02/11/18 at 10:55; Status DC Acetaminophen/ Hydrocodone Bitart (Lortab 5/325) 1 tab PRN Q4HRS PRN PO MODERATE-SEVERE PAIN Last administered on 02/12/18at 17:17; Start 02/10/18 at 16: 45 Losartan Potassium (Cozaar) 50 mg DAILY PO Last administered on 02/11/18at 08:39 ; Start 02/11/18 at 09:00; Stop 02/11/18 at 10:56; Status DC Non-Formulary Medication (Pantoprazole Sodium (Protonix)) 40 mg DAILY PO ; Start 02/11/18 at 09:00; Status UNV Acetaminophen (Tylenol) 325 mg PRN Q4HRS PRN PO MILD PAIN / TEMP; Start at 17:00 Ondansetron HCl (Zofran) 4 mg Q6HRS IV Last administered on 02/13/18at 05:59; Start 02/10/18 at 18:00 Lorazepam (Ativan) 1 mg 1X ONCE IV ; Start 02/10/18 at 17:30; Stop 02/10/18 at 22:30; Status DC Insulin Human Lispro (HumaLOG) 6 units TIDWMEALS SQ Last administered on at 08:00; Start 02/10/18 at 17:30; Stop 02/11/18 at 10:56; Status DC Insulin Glargine (Lantus) 20 units QHS SQ Last administered on 02/10/18at 22:49 ; Start 02/10/18 at 21:00; Stop 02/11/18 at 10:55; Status DC Morphine Sulfate (Morphine Sulfate) 2 mg PRN Q4HRS PRN IV SEVERE PAIN Last administered on 02/12/18at 20:48; Start 02/10/18 at 17:00 Morphine Sulfate (Morphine Sulfate) 1 mg PRN Q4HRS PRN IV MODERATE PAIN; Start 02/10/18 at 17:00 Lorazepam (Ativan) 1 mg 1X ONCE IV ; Start 02/11/18 at 08:00; Stop 02/11/18 at 08:01; Status Cancel Carvedilol (Coreg) 25 mg BIDWMEALS PO Last administered on 02/12/18at 17:18; Start 02/11/18 at 17:00 Insulin Glargine (Lantus) 40 units QHS SQ Last administered on 02/11/18at 20:41 ; Start 02/11/18 at 21:00; Stop 02/12/18 at 12:29; Status DC Insulin Human Lispro (HumaLOG) 12 units TIDWMEALS SQ Last administered on at 11:51; Start 02/11/18 at 12:00; Stop 02/12/18 at 12:29; Status DC Losartan Potassium (Cozaar) 100 mg DAILY PO Last administered on 02/12/18at 08: 53; Start 02/12/18 at 09:00 Clonidine HCl (Catapres Tts-2) 1 patch WEEKLY TD Last administered on at 12:21; Start 02/11/18 at 12:00 Sodium Chloride 1,000 ml @ 40 mls/hr Q24H IV Last administered on 02/12/18at 15 :13; Start 02/11/18 at 12:00 Al Hydroxide/Mg Hydroxide (Mylanta Plus Xs) 30 ml PRN Q2HR PRN PO HEARTBURN / GAS; Start 02/11/18 at 11:00 Lactulose (Lactulose) 20 gm Q2H PO Last administered on 02/11/18at 16:56; Start 02/11/18 at 16:00; Stop 02/11/18 at 18:01; Status DC Lorazepam (Ativan) 1 mg 1X ONCE IV Last administered on 02/11/18at 13:41; Start 02/11/18 at 14:00; Stop 02/11/18 at 14:01; Status DC Insulin Glargine (Lantus) 50 units QHS SQ Last administered on 02/12/18at 20:58 ; Start 02/12/18 at 21:00 Insulin Human Lispro (HumaLOG) 18 units TIDWMEALS SQ ; Start 02/12/18 at 12:30; Stop 02/12/18 at 12:31; Status DC Gabapentin (Neurontin) 100 mg TID PO Last administered on 02/12/18at 20:49; Start 02/12/18 at 14:00 Insulin Human Lispro (HumaLOG) 18 units TIDWMEALS SQ Last administered on at 17:33; Start 02/12/18 at 17:00 Lorazepam (Ativan) 1 mg 1X ONCE IV ; Start 02/13/18 at 08:30; Stop 02/13/18 at 08:31; Status UNV Active Scripts Active Humalog (Insulin Lispro) 100 Unit/1 Ml Insuln.pen 16 Units SQ TIDAC 30 Days Lantus Solostar (Insulin Glargine,Hum.rec.anlog) 100 Unit/1 Ml Insuln.pen 40 Units SQ QHS 30 Days Amlodipine Besylate 5 Mg Tablet 5 Mg PO DAILY 30 Days Metoclopramide Hcl 10 Mg Tablet 10 Mg PO TIDACHC Children's Aspirin (Aspirin) 81 Mg Tab.chew 81 Mg PO DAILYWBKFT Reported Protonix (Pantoprazole Sodium) 20 Mg Tablet.dr 40 Mg PO DAILY Hydrocodone-Apap 5-325 (Hydrocodone Bit/Acetaminophen) 1 Each Tablet 1 Tab PO Q4HRS PRN Losartan Potassium 50 Mg Tablet 50 Mg PO DAILY Catapres-Tts 1 (Clonidine) 1 Each Patch.tdwk 1 Each TD WEEKLY Carvedilol 12.5 Mg Tablet 1 Tab PO BID Omeprazole 40 Mg Capsule. 1 Cap PO DAILY Clopidogrel (Clopidogrel Bisulfate) 75 Mg Tablet 1 Tab PO DAILY Allopurinol 100 Mg Tablet 1 Tab PO BID Furosemide 80 Mg Tablet 1 Tab PO BID Centrum Silver Tablet (Multivits-Min/Fa/Lycopene/Lut) 1 Each Tablet 1 Each PO Fish Oil ([place]-3 Fatty Acids) 300 Mg Capsule 1,000 Mg PO DAILY Atorvastatin Calcium 40 Mg Tablet 40 Mg PO HS Betimol (Timolol) 5 Ml Drops 5 Ml OP DAILY Vitals/I & O Vital Sign - Last 24 Hours 02/12/18 02/12/18 02/12/18 02/12/18 08:53 08:54 10:46 14:57 Temp 98.9 98.7 98.9 98.7 Pulse 77 77 83 75 Resp 18 20 B/P (MAP) 169/61 169/61 137/73 (94) 165/65 (98) Pulse Ox 97 98 O2 Delivery Room Air Room Air 02/12/18 02/12/18 02/12/18 02/12/18 17:17 17:18 18:34 19:40 Temp 97.7 97.7 Pulse 75 65 Resp 18 17 16 B/P (MAP) 165/65 131/59 (83) Pulse Ox 95 O2 Delivery Room Air Room Air 02/12/18 02/12/18 02/12/18 02/12/18 20:00 20:48 21:22 23:40 Temp 97.9 97.9 Pulse 65 Resp 17 18 18 B/P (MAP) 160/63 (95) Pulse Ox 97 O2 Delivery Room Air Room Air Room Air Room Air 02/13/18 02/13/18 02/13/18 03:40 07:00 07:54 Temp 98.0 98.1 98.0 98.1 Pulse 68 65 Resp 18 18 B/P (MAP) 144/53 (83) 166/66 (99) Pulse Ox 95 99 O2 Delivery Room Air Room Air Room Air Intake and Output 02/12/18 02/12/18 02/13/18 15:00 23:00 07:00 Intake Total 660 ml 340 ml Balance 660 ml 340 ml JONNY JOHN MD Feb 13, 2018 08:37
[2018-02-13] MEDS: GABAPENTIN 100 MG CAPSULE. PO SCH ×3 (08:59→20:01)
[2018-02-13] MEDS: HYDROcodone/APAP 5/325MG 1 TAB TABLET PO PRN ×2 (08:59→20:01)
[2018-02-13] MEDS: ASPIRIN CHEWABLE 81 MG TABLET. PO SCH (08:59)
[2018-02-13] MEDS: LOSARTAN POTASSIUM 25 MG TABLET. PO SCH (08:59)
[2018-02-13] MEDS: ALLOPURINOL 100 MG TABLET. PO SCH ×2 (09:00→20:02)
[2018-02-13] MEDS: TIMOLOL 0.25% OPHTH SOLUTION 5ML BOTTLE. OU SCH (09:00)
[2018-02-13] MEDS: CLOPIDOGREL BISULFATE 75 MG TABLET PO SCH (09:00)
[2018-02-13] MEDS: PANTOPRAZOLE IV PUSH 40 MG VIAL. IVP SCH (09:02)
[2018-02-13] MEDS: CARVEDILOL 12.5 MG TABLET. PO SCH ×2 (09:02→17:17)
[2018-02-13] MEDS: METOCLOPRAMIDE HCL 10 MG/2 ML VIAL. IV SCH ×2 (09:05→12:02)
--- NOTE | 2018-02-13 10:14 | PDOC ---
AR IZQUIERDO BROKER ASSISTANT 02/13/18 1014: SURGICAL PROGRESS NOTE Subjective tolerating diet less abdominal pain no n/v main complaint is back pain Vital Signs Vital Signs Date Time Temp Pulse Resp B/P (MAP) Pulse Ox O2 Delivery O2 Flow Rate FiO2 02/13/18 09:02 65 166/66 02/13/18 08:59 Room Air 02/13/18 07:00 98.1 18 99 98.1 I&O Intake and Output 02/13/18 07:00 Intake Total 1000 ml Balance 1000 ml Intake Oral 1000 ml # Voids 3 General: Alert, Oriented X3, Cooperative, No acute distress Abdomen: Soft, Other (ND, mild epigastric TTP) Labs Laboratory Tests Test 02/11/18 11:32 02/11/18 17:20 02/11/18 20:28 02/12/18 06:00 Glucose (Fingerstick) 207 mg/dL (70-99) 277 mg/dL (70-99) 263 mg/dL (70-99) White Blood Count 5.6 x10^3/uL (4.0-11.0) Red Blood Count 4.01 x10^6/uL (4.30-5.70) Hemoglobin 12.2 g/dL (13.0-17.5) Hematocrit 36.2 % (39.0-53.0) Mean Corpuscular Volume 90 fL (79-100) Mean Corpuscular Hemoglobin 30 pg (25-35) Mean Corpuscular Hemoglobin Concent 34 g/dL (31-37) Red Cell Distribution Width 13.5 % (11.5-14.5) Platelet Count 195 x10^3/uL (140-400) Neutrophils (%) (Auto) 52 % (31-73) Lymphocytes (%) (Auto) 34 % (24-48) Monocytes (%) (Auto) 10 % (0-9) Eosinophils (%) (Auto) 3 % (0-3) Basophils (%) (Auto) 1 % (0-3) Neutrophils # (Auto) 2.9 x10^3uL (1.8-7.7) Lymphocytes # (Auto) 1.9 x10^3/uL (1.0-4.8) Monocytes # (Auto) 0.6 x10^3/uL (0.0-1.1) Eosinophils # (Auto) 0.2 x10^3/uL (0.0-0.7) Basophils # (Auto) 0.1 x10^3/uL (0.0-0.2) Sodium Level 138 mmol/L (136-145) Potassium Level 4.1 mmol/L (3.5-5.1) Chloride Level 102 mmol/L (98-107) Carbon Dioxide Level 31 mmol/L (21-32) Anion Gap 5 (6-14) Blood Urea Nitrogen 26 mg/dL (8-26) Creatinine 2.1 mg/dL (0.7-1.3) Estimated GFR (Cockcroft-Gault) 38.3 Glucose Level 305 mg/dL (70-99) Calcium Level 8.3 mg/dL (8.5-10.1) Magnesium Level 1.8 mg/dL (1.8-2.4) Lipase 340 U/L (73-393) Test 02/12/18 07:22 02/12/18 11:24 02/12/18 16:47 02/12/18 21:09 Glucose (Fingerstick) 283 mg/dL (70-99) 398 mg/dL (70-99) 153 mg/dL (70-99) 234 mg/dL (70-99) Test 02/13/18 06:00 02/13/18 07:46 White Blood Count 4.1 x10^3/uL (4.0-11.0) Red Blood Count 3.73 x10^6/uL (4.30-5.70) Hemoglobin 11.2 g/dL (13.0-17.5) Hematocrit 33.6 % (39.0-53.0) Mean Corpuscular Volume 90 fL (79-100) Mean Corpuscular Hemoglobin 30 pg (25-35) Mean Corpuscular Hemoglobin Concent 33 g/dL (31-37) Red Cell Distribution Width 13.6 % (11.5-14.5) Platelet Count 175 x10^3/uL (140-400) Neutrophils (%) (Auto) 51 % (31-73) Lymphocytes (%) (Auto) 32 % (24-48) Monocytes (%) (Auto) 12 % (0-9) Eosinophils (%) (Auto) 4 % (0-3) Basophils (%) (Auto) 1 % (0-3) Neutrophils # (Auto) 2.1 x10^3uL (1.8-7.7) Lymphocytes # (Auto) 1.3 x10^3/uL (1.0-4.8) Monocytes # (Auto) 0.5 x10^3/uL (0.0-1.1) Eosinophils # (Auto) 0.2 x10^3/uL (0.0-0.7) Basophils # (Auto) 0.0 x10^3/uL (0.0-0.2) Sodium Level 141 mmol/L (136-145) Potassium Level 3.9 mmol/L (3.5-5.1) Chloride Level 108 mmol/L (98-107) Carbon Dioxide Level 29 mmol/L (21-32) Anion Gap 4 (6-14) Blood Urea Nitrogen 19 mg/dL (8-26) Creatinine 1.6 mg/dL (0.7-1.3) Estimated GFR (Cockcroft-Gault) 52.4 Glucose Level 99 mg/dL (70-99) Calcium Level 8.3 mg/dL (8.5-10.1) Glucose (Fingerstick) 84 mg/dL (70-99) Laboratory Tests Test 02/12/18 11:24 02/12/18 16:47 02/12/18 21:09 02/13/18 06:00 Glucose (Fingerstick) 398 mg/dL (70-99) 153 mg/dL (70-99) 234 mg/dL (70-99) White Blood Count 4.1 x10^3/uL (4.0-11.0) Red Blood Count 3.73 x10^6/uL (4.30-5.70) Hemoglobin 11.2 g/dL (13.0-17.5) Hematocrit 33.6 % (39.0-53.0) Mean Corpuscular Volume 90 fL (79-100) Mean Corpuscular Hemoglobin 30 pg (25-35) Mean Corpuscular Hemoglobin Concent 33 g/dL (31-37) Red Cell Distribution Width 13.6 % (11.5-14.5) Platelet Count 175 x10^3/uL (140-400) Neutrophils (%) (Auto) 51 % (31-73) Lymphocytes (%) (Auto) 32 % (24-48) Monocytes (%) (Auto) 12 % (0-9) Eosinophils (%) (Auto) 4 % (0-3) Basophils (%) (Auto) 1 % (0-3) Neutrophils # (Auto) 2.1 x10^3uL (1.8-7.7) Lymphocytes # (Auto) 1.3 x10^3/uL (1.0-4.8) Monocytes # (Auto) 0.5 x10^3/uL (0.0-1.1) Eosinophils # (Auto) 0.2 x10^3/uL (0.0-0.7) Basophils # (Auto) 0.0 x10^3/uL (0.0-0.2) Sodium Level 141 mmol/L (136-145) Potassium Level 3.9 mmol/L (3.5-5.1) Chloride Level 108 mmol/L (98-107) Carbon Dioxide Level 29 mmol/L (21-32) Anion Gap 4 (6-14) Blood Urea Nitrogen 19 mg/dL (8-26) Creatinine 1.6 mg/dL (0.7-1.3) Estimated GFR (Cockcroft-Gault) 52.4 Glucose Level 99 mg/dL (70-99) Calcium Level 8.3 mg/dL (8.5-10.1) Test 02/13/18 07:46 Glucose (Fingerstick) 84 mg/dL (70-99) Assessment/Plan epigastric pain improved, no surgical plans ISHA HENSON MD 02/13/18 7286: SURGICAL PROGRESS NOTE Assessment/Plan as above will sign off please call if needed Thank you AR IZQUIERDO APRN Feb 13, 2018 10:14 ISHA HENSON MD Feb 13, 2018 17:09
--- NOTE | 2018-02-13 10:52 | RAD ---
EXAM: CT Chest without IV contrast CLINICAL HISTORY: NODULE. Epigastric and chest pain. COMPARISON: Chest radiograph 02/11/2018, 02/10/2018, A2 18 TECHNIQUE: CT of the chest without intravenous contrast. Axial, coronal and sagittal reformatted images were generated. ---PQRS compliance statement - One or more of the following individualized dose reduction techniques were utilized for this study: 1. Automated exposure control 2. Adjustment of the mA and/or kV according to patient size 3. Use of iterative reconstruction technique--- FINDINGS: Lack of intravenous contrast limits evaluation of solid organs, vasculature, and lymph nodes. Chest: Right upper extremity PICC tip projects over the mid SVC. Enlarged left thyroid nodule measures 4.6 x 4.1 cm with extension into the mediastinum, causing mild mass effect on the trachea. Calcified subcarinal and hilar lymph nodes are seen. No axillary lymphadenopathy. Heart is not enlarged. Coronary artery calcifications are seen. Trace pericardial fluid likely physiologic. No pleural effusion or pneumothorax. The previously seen nodular opacity in the left upper lung likely from summation artifact. No suspicious left upper lung nodule or mass is identified. Platelike opacities in the right lower lobe likely subsegmental atelectasis. A 6 mm medial lobe lung nodule is seen (image [id number]). Visualized Upper abdomen: Left adrenal nodule is unchanged. Visualized upper abdomen is unremarkable. Bones: No definite aggressive osseous lesion is seen. No evidence of acute fracture. IMPRESSION: 1. The nodular opacity seen on prior radiographs likely summation artifact as no definite CT correlate is identified. 2. A 6 mm middle lobe lung nodule is seen. Per Fleischner Society guidelines for incidentally found solid nodule measuring 6-8 mm, initial CT follow-up is recommended in 6-12 months. Additional follow-up can be considered in 18-24 month based on risk factors. 3. Enlarged left thyroid with left thyroid nodular mass extending into the mediastinum. Recommend correlation with thyroid ultrasound. Electronically signed by: Marc Alston MD (02/13/2018 10:48 AM) [id number]
[2018-02-13 11:53] VITALS: BP 144/78
--- NOTE | 2018-02-13 13:48 | CONS ---
DATE OF CONSULTATION: ATTENDING PHYSICIAN: Dr. Chery. REASON FOR CONSULTATION: Lung nodule. HISTORY OF PRESENT ILLNESS: The patient is a 68-year-old morbidly obese patient who has 52 years of tobacco use. He was hospitalized with abdominal pain and elevated lipase. A CT abdomen and pelvis was performed, which showed a questionable lingular nodule. I was not impressed with the CT chest report, as a result I ordered a CT chest for further evaluation. I personally reviewed the CT chest. The reported lingular nodule was an artifact. However, there was a tiny 6 mm nodule seen medially in the right middle lobe. The patient also had enlarged left thyroid, which is causing extension into the mediastinum and a mass effect. I have been asked to see him for further evaluation. He denies any cough, denies any shortness of breath. No history of deep vein thrombosis or pulmonary embolism. He does have history of snoring and witnessed apneas, never had formal sleep study. PAST MEDICAL HISTORY: Significant for history of diabetes, history of hypertension, CKD stage 3, BPH, history of diabetic nephropathy, history of acute pancreatitis, history of peripheral arterial disease. Please review the other detailed past medical history from Dr. Chery's [facility] and [facility]. PAST SURGICAL HISTORY: As discussed above. SOCIAL HISTORY: Has a history of tobacco use for 52 years, a pack per day. FAMILY HISTORY: Father had diabetes. REVIEW OF SYSTEMS: Twelve-point system obtained. Pertinent positives discussed in my history of present illness, otherwise noncontributory. All systems that were negative were reviewed as well. ALLERGIES: IBUPROFEN, LISINOPRIL AND PIOGLITAZONE. MEDICATIONS: All reviewed as listed in the MRAD. PHYSICAL EXAMINATION: GENERAL: He is awake, following commands. No obvious respiratory distress. VITAL SIGNS: Reviewed. Pulse ox 93% on room air. NECK: Supple. LUNGS: Clear. CARDIOVASCULAR: Regular rate. ABDOMEN: Soft, obese. EXTREMITIES: With venous stasis and bilateral edema. LABORATORY DATA: Reviewed. White cell count 4.1, hemoglobin 11.2 and platelets are 175. BUN 19, creatinine 1.6. IMPRESSION: 1. A tiny 6 mm nodule medially in the right middle lobe. This is too small for PET scan and does not need any invasive intervention at present. I would recommend repeating a CT chest in 6 months. 2. Enlarged thyroid nodule with extension into the mediastinum. Would recommend a workup per primary care physician. 3. History of tobacco use for 52 years. Suspect underlying chronic obstructive pulmonary disease. 4. History highly suggestive of sleep apnea. He would benefit from outpatient polysomnogram. RECOMMENDATIONS: 1. Repeat CT chest in 6 months to follow up on the tiny lung nodule. 2. Smoking cessation counseling provided. He plans to quit. 3. Follow up CT chest in 6 months. 4. Workup of thyroid nodule/mass per Dr. Chery. 5. Weight loss is strongly advised. 6. Outpatient polysomnogram is recommended. Discussed with the patient. CRISTINA LAND MD DR: KELI/mis JOB#: [id number] / [id number]
--- NOTE | 2018-02-13 13:57 | PDOC ---
Subjective: Subjective: Drowsy but says has back pain but NO abd pain. Objective: Objective: Reviewed chart. Vital Signs: Vital Signs Date Time Temp Pulse Resp B/P (MAP) Pulse Ox O2 Delivery O2 Flow Rate FiO2 02/13/18 11:53 97.4 69 16 144/78 (100) 93 Room Air 97.4 Labs: Laboratory Tests Test 02/12/18 16:47 02/12/18 21:09 02/13/18 06:00 02/13/18 07:46 Glucose (Fingerstick) 153 mg/dL 234 mg/dL 84 mg/dL White Blood Count 4.1 x10^3/uL Red Blood Count 3.73 x10^6/uL Hemoglobin 11.2 g/dL Hematocrit 33.6 % Mean Corpuscular Volume 90 fL Mean Corpuscular Hemoglobin 30 pg Mean Corpuscular Hemoglobin Concent 33 g/dL Red Cell Distribution Width 13.6 % Platelet Count 175 x10^3/uL Neutrophils (%) (Auto) 51 % Lymphocytes (%) (Auto) 32 % Monocytes (%) (Auto) 12 % Eosinophils (%) (Auto) 4 % Basophils (%) (Auto) 1 % Neutrophils # (Auto) 2.1 x10^3uL Lymphocytes # (Auto) 1.3 x10^3/uL Monocytes # (Auto) 0.5 x10^3/uL Eosinophils # (Auto) 0.2 x10^3/uL Basophils # (Auto) 0.0 x10^3/uL Sodium Level 141 mmol/L Potassium Level 3.9 mmol/L Chloride Level 108 mmol/L Carbon Dioxide Level 29 mmol/L Anion Gap 4 Blood Urea Nitrogen 19 mg/dL Creatinine 1.6 mg/dL Estimated GFR (Cockcroft-Gault) 52.4 Glucose Level 99 mg/dL Calcium Level 8.3 mg/dL Test 02/13/18 11:38 Glucose (Fingerstick) 268 mg/dL Imaging: CXR IMPRESSION: 1. No radiographic evidence for acute cardiopulmonary process. Abd Doppler IMPRESSION: Nondiagnostic Doppler exam for evaluation of abdominal vasculature due to body habitus and overlying bowel gas. CT A/P IMPRESSION: Small noncalcified pulmonary nodule anterior medially in the right lingula which is unchanged. Recommend follow-up according to Fleischner Society guidelines. Linear atelectasis at the left lingula which is unchanged. Calcifications in the subcarinal mediastinum consistent with calcified adenopathy and unchanged. 1.5 cm nodule in the left adrenal gland adenoma which is unchanged. Right pelvic kidney. Chest CT IMPRESSION: 1. The nodular opacity seen on prior radiographs likely summation artifact as no definite CT correlate is identified. 2. A 6 mm middle lobe lung nodule is seen. Per Fleischner Society guidelines for incidentally found solid nodule measuring 6-8 mm, initial CT follow-up is recommended in 6-12 months. Additional follow-up can be considered in 18-24 month based on risk factors. 3. Enlarged left thyroid with left thyroid nodular mass extending into the mediastinum. Recommend correlation with thyroid ultrasound. PE: GEN: was asleep LUNGS: room air HEART: RRR ABD: round, non-tender NEURO/PSYCH: drowsy A/P: Upper abd pain, n/v, weight loss -- Improved. Still on IV PPI and IV Reglan - change to PO. Normal CA19-9, MRCP cancelled (?couldn't tolerate), other imaging/testing unrevealing. Note left thyroid mass on CT - defer to primary. RJ HAYS Feb 13, 2018 13:57
--- NOTE | 2018-02-13 14:53 | PDOC ---
SUBJECTIVE ROS No complaints/Concerns OBJECTIVE Vital Signs Vital Signs Date Time Temp Pulse Resp B/P (MAP) Pulse Ox O2 Delivery O2 Flow Rate FiO2 02/13/18 11:53 97.4 69 16 144/78 (100) 93 Room Air 97.4 I & 0 Intake and Output 02/13/18 07:01 Intake Total 1000 ml Balance 1000 ml Intake Oral 1000 ml # Voids 3 PHYSICAL EXAM Physical Exam GENERAL APPEARANCE: NAD HEENT: OM moist NECK: supple LUNGS: Clear. CARDIAC: RRR ABDOMEN: Distended, nontender. Bowel sounds present. EXTREMITIES: Without edema. NEURO - No gross abnorma No murrieta Skin No rash DIAGNOSIS/ASSESSMENT Assessment & Plan BEN - resolved, Creat back to baseline Likely pre-renal E-Lytes and acid base stable CKD stage 3 - baseline 1.6 in the setting of diabetes mellitus and hypertension. Abdominal pain, nausea, retching, elevated lipase As per primary team Recommend fu with Nephrology for CKD after dc COMMENT/RELEVANT DATA Meds Current Medications Medications (Trade) Dose Ordered Sig/Jeanie Start Time Stop Time Status Last Admin Dose Admin Acetaminophen (Tylenol) 325 mg PRN Q4HRS PRN 02/10/18 17:00 Acetaminophen/ Hydrocodone Bitart (Lortab 5/325) 1 tab PRN Q4HRS PRN 02/10/18 16:45 02/13/18 08:59 1 TAB Al Hydroxide/Mg Hydroxide (Mylanta Plus Xs) 30 ml PRN Q2HR PRN 02/11/18 11:00 Allopurinol (Zyloprim) 100 mg BID 02/10/18 21:00 02/13/18 09:00 100 MG Aspirin (Children'S Aspirin) 81 mg DAILYWBKFT 02/10/18 17:00 02/13/18 08:59 81 MG Atorvastatin Calcium (Lipitor) 40 mg HS 02/10/18 21:00 02/12/18 20:49 40 MG Carvedilol (Coreg) 25 mg BIDWMEALS 02/11/18 17:00 02/13/18 09:02 25 MG Clonidine HCl (Catapres Tts-1) 1 patch WEEKLY 02/11/18 09:00 02/11/18 10:55 DC 02/11/18 08:37 1 PATCH Clonidine HCl (Catapres Tts-2) 1 patch WEEKLY 02/11/18 12:00 02/11/18 12:21 1 PATCH Clopidogrel Bisulfate (Plavix) 75 mg DAILY 02/10/18 17:00 02/13/18 09:00 75 MG Furosemide (Lasix) 80 mg BID94 02/10/18 17:00 02/11/18 10:55 DC 02/11/18 08:38 80 MG Gabapentin (Neurontin) 100 mg TID 02/12/18 14:00 02/13/18 12:02 100 MG Insulin Glargine (Lantus) 40 units QHS 02/13/18 21:00 Insulin Human Lispro (HumaLOG) 14 units TIDWMEALS 02/13/18 12:00 02/13/18 12:10 14 UNITS Lactulose (Lactulose) 20 gm Q2H 02/11/18 16:00 02/11/18 18:01 DC 02/11/18 16:56 20 GM Lorazepam (Ativan) 1 mg 1X ONCE 02/13/18 08:30 02/13/18 08:34 DC 02/13/18 09:08 1 MG Losartan Potassium (Cozaar) 100 mg DAILY 02/13/18 09:00 02/13/18 08:59 100 MG Metoclopramide HCl (Reglan Oral Solution) 10 mg QIDACHS 02/13/18 16:30 Metoclopramide HCl (Reglan Vial) 10 mg QIDACHS 02/10/18 17:00 02/13/18 13:57 DC 02/13/18 12:02 10 MG Metoclopramide HCl (Reglan) 5 mg TIDACHC 02/10/18 17:00 UNV Morphine Sulfate (Morphine Sulfate) 1 mg PRN Q4HRS PRN 02/10/18 17:00 Non-Formulary Medication (Pantoprazole Sodium (Protonix)) 40 mg DAILY 02/11/18 09:00 UNV Ondansetron HCl (Zofran) 4 mg Q6HRS 02/10/18 18:00 02/13/18 12:02 4 MG Pantoprazole Sodium (PROTONIX VIAL for IV PUSH) 40 mg BIDAC 02/10/18 17:00 02/13/18 13:57 DC 02/13/18 09:02 40 MG Pantoprazole Sodium (Protonix) 40 mg BIDAC 02/13/18 16:30 Sodium Chloride 1,000 ml @ 40 mls/hr Q24H 02/11/18 12:00 02/13/18 08:39 DC 02/12/18 15:13 40 MLS/HR Timolol Maleate (Timoptic 0.25% Oph) 1 drop DAILY 02/11/18 09:00 02/13/18 09:00 1 DROP Lab Laboratory Tests Test 02/12/18 16:47 02/12/18 21:09 02/13/18 06:00 02/13/18 07:46 Glucose (Fingerstick) 153 mg/dL (70-99) 234 mg/dL (70-99) 84 mg/dL (70-99) White Blood Count 4.1 x10^3/uL (4.0-11.0) Red Blood Count 3.73 x10^6/uL (4.30-5.70) Hemoglobin 11.2 g/dL (13.0-17.5) Hematocrit 33.6 % (39.0-53.0) Mean Corpuscular Volume 90 fL (79-100) Mean Corpuscular Hemoglobin 30 pg (25-35) Mean Corpuscular Hemoglobin Concent 33 g/dL (31-37) Red Cell Distribution Width 13.6 % (11.5-14.5) Platelet Count 175 x10^3/uL (140-400) Neutrophils (%) (Auto) 51 % (31-73) Lymphocytes (%) (Auto) 32 % (24-48) Monocytes (%) (Auto) 12 % (0-9) Eosinophils (%) (Auto) 4 % (0-3) Basophils (%) (Auto) 1 % (0-3) Neutrophils # (Auto) 2.1 x10^3uL (1.8-7.7) Lymphocytes # (Auto) 1.3 x10^3/uL (1.0-4.8) Monocytes # (Auto) 0.5 x10^3/uL (0.0-1.1) Eosinophils # (Auto) 0.2 x10^3/uL (0.0-0.7) Basophils # (Auto) 0.0 x10^3/uL (0.0-0.2) Sodium Level 141 mmol/L (136-145) Potassium Level 3.9 mmol/L (3.5-5.1) Chloride Level 108 mmol/L (98-107) Carbon Dioxide Level 29 mmol/L (21-32) Anion Gap 4 (6-14) Blood Urea Nitrogen 19 mg/dL (8-26) Creatinine 1.6 mg/dL (0.7-1.3) Estimated GFR (Cockcroft-Gault) 52.4 Glucose Level 99 mg/dL (70-99) Calcium Level 8.3 mg/dL (8.5-10.1) Test 02/13/18 11:38 Glucose (Fingerstick) 268 mg/dL (70-99) Results All relevant outside records, renal labs, imaging studies, telemetry/EKG's were reviewed. CORINNA BOWLES MD Feb 13, 2018 14:53
[2018-02-13 15:12] VITALS: BP 164/76
[2018-02-13] MEDS: METOCLOPRAMIDE ORAL SOLN 10 MG/10 ML SOLUTION. PO SCH ×3 (16:30→19:59)
[2018-02-13] MEDS: PANTOPRAZOLE 40 MG TABLET.DR. PO SCH (17:17)
[2018-02-13 19:54] VITALS: BP 169/67
[2018-02-13] MEDS: ATORVASTATIN CALCIUM 40 MG TABLET. PO SCH (20:00)
[2018-02-13] MEDS ORDERED: INSULIN GLARGINE 300 UNITS/3 ML INSULN.PEN. SQ SCH (21:00)
[2018-02-13 23:28] VITALS: BP 190/86
[2018-02-14 03:40] VITALS: BP 147/76
[2018-02-14] MEDS: HYDROcodone/APAP 5/325MG 1 TAB TABLET PO PRN ×2 (05:45→21:16)
[2018-02-14] MEDS: ONDANSETRON PF 4 MG/2 ML VIAL. IV SCH ×6 (05:47→23:47)
[2018-02-14 05:59] LABS: BASO % 1 % (0-3); EOS # 0.2 x10^3/uL (0.0-0.7); EOS % 4 % (0-3); HEMATOCRIT 32.6 % (39.0-53.0); HEMOGLOBIN 10.9 g/dL (13.0-17.5); LYMPH # 1.3 x10^3/uL (1.0-4.8); LYMPH % 36 % (24-48); MEAN CORPUSCULAR HEMOGLOBIN 30 pg (25-35); MEAN CORPUSCULAR HGB CONC 33 g/dL (31-37); MEAN CORPUSCULAR VOLUME 90 fL (79-100); MONO # 0.4 x10^3/uL (0.0-1.1); MONO % 10 % (0-9); NEUT # 1.8 x10^3uL (1.8-7.7); NEUT % 49 % (31-73); PLATELET COUNT 167 x10^3/uL (140-400); RED BLOOD COUNT 3.61 x10^6/uL (4.30-5.70); RED CELL DISTRIBUTION WIDTH 13.8 % (11.5-14.5); WHITE BLOOD COUNT 3.7 x10^3/uL (4.0-11.0)
[2018-02-14 06:26] LABS: CALCIUM 8.6 mg/dL (8.5-10.1); CREATININE 1.7 mg/dL (0.7-1.3); GFR 48.9; POTASSIUM 4.5 mmol/L (3.5-5.1)
[2018-02-14 07:00] VITALS: BP 159/59
[2018-02-14] MEDS: METOCLOPRAMIDE ORAL SOLN 10 MG/10 ML SOLUTION. PO SCH ×3 (07:30→21:16)
[2018-02-14] MEDS: PANTOPRAZOLE 40 MG TABLET.DR. PO SCH ×2 (09:17→17:12)
[2018-02-14] MEDS: ALLOPURINOL 100 MG TABLET. PO SCH ×2 (09:17→21:16)
[2018-02-14] MEDS: TIMOLOL 0.25% OPHTH SOLUTION 5ML BOTTLE. OU SCH (09:17)
[2018-02-14] MEDS: CLOPIDOGREL BISULFATE 75 MG TABLET PO SCH (09:17)
[2018-02-14] MEDS: ASPIRIN CHEWABLE 81 MG TABLET. PO SCH (09:17)
[2018-02-14] MEDS: GABAPENTIN 100 MG CAPSULE. PO SCH ×3 (09:17→21:16)
[2018-02-14] MEDS: CARVEDILOL 12.5 MG TABLET. PO SCH ×2 (09:18→17:12)
[2018-02-14] MEDS: LOSARTAN POTASSIUM 25 MG TABLET. PO SCH (09:19)
[2018-02-14] MEDS: INSULIN LISPRO 300 UNITS/3 ML INSULN.PEN. SQ SCH ×3 (09:23→17:14)
--- NOTE | 2018-02-14 11:00 | PDOC ---
Subjective: Subjective: Seen earlier when unable to use [facility]. "Guess I'm staying another day." Back pain is bothersome, abd pain rated "2," tolerating PO. Objective: Objective: Note plans for thyroid biopsy. Looks like he refused Reglan. Vital Signs: Vital Signs Date Time Temp Pulse Resp B/P (MAP) Pulse Ox O2 Delivery O2 Flow Rate FiO2 02/14/18 09:19 85 159/59 02/14/18 07:41 Room Air 02/14/18 07:00 98.5 20 93 98.5 Labs: Laboratory Tests Test 02/13/18 11:38 02/13/18 16:58 02/13/18 20:03 02/14/18 05:40 Glucose (Fingerstick) 268 mg/dL 149 mg/dL 225 mg/dL White Blood Count 3.7 x10^3/uL Red Blood Count 3.61 x10^6/uL Hemoglobin 10.9 g/dL Hematocrit 32.6 % Mean Corpuscular Volume 90 fL Mean Corpuscular Hemoglobin 30 pg Mean Corpuscular Hemoglobin Concent 33 g/dL Red Cell Distribution Width 13.8 % Platelet Count 167 x10^3/uL Neutrophils (%) (Auto) 49 % Lymphocytes (%) (Auto) 36 % Monocytes (%) (Auto) 10 % Eosinophils (%) (Auto) 4 % Basophils (%) (Auto) 1 % Neutrophils # (Auto) 1.8 x10^3uL Lymphocytes # (Auto) 1.3 x10^3/uL Monocytes # (Auto) 0.4 x10^3/uL Eosinophils # (Auto) 0.2 x10^3/uL Basophils # (Auto) 0.0 x10^3/uL Sodium Level 141 mmol/L Potassium Level 4.5 mmol/L Chloride Level 105 mmol/L Carbon Dioxide Level 30 mmol/L Anion Gap 6 Blood Urea Nitrogen 17 mg/dL Creatinine 1.7 mg/dL Estimated GFR (Cockcroft-Gault) 48.9 Glucose Level 329 mg/dL Calcium Level 8.6 mg/dL PE: GEN: NAD, laying on left side HEENT: keeps eyes closed LUNGS: CTAB HEART: RRR ABD: mild discomfort epigastrium, round but soft NEURO/PSYCH: drowsy A/P: Upper abd pain, n/v - improved Thyroid mass -- Would continue same per GI (though he refused Reglan). RJ HAYS Feb 14, 2018 11:00
--- NOTE | 2018-02-14 11:58 | PDOC ---
SUBJECTIVE ROS Mild Abdominal pain, taking PO. Chrr back pain , No urinary complaints OBJECTIVE Vital Signs Vital Signs Date Time Temp Pulse Resp B/P (MAP) Pulse Ox O2 Delivery O2 Flow Rate FiO2 02/14/18 09:19 85 159/59 02/14/18 07:41 Room Air 02/14/18 07:00 98.5 20 93 98.5 I & 0 Intake and Output 02/14/18 07:00 Intake Total 1620 ml Balance 1620 ml Intake Oral 1620 ml # Voids 8 PHYSICAL EXAM Physical Exam GENERAL APPEARANCE: NAD HEENT: OM moist NECK: supple LUNGS: Clear. CARDIAC: RRR ABDOMEN: Distended, nontender. Bowel sounds present. EXTREMITIES: Without edema. NEURO - No gross abnorma No murrieta Skin No rash DIAGNOSIS/ASSESSMENT Assessment & Plan BEN - Creat stable Likely pre-renal E-Lytes and acid base stable CKD stage 3 - baseline 1.6 in the setting of diabetes mellitus and hypertension. Abdominal pain, nausea, retching, elevated lipase As per primary team Recommend fu with Nephrology for CKD post discharge COMMENT/RELEVANT DATA Meds Current Medications Medications (Trade) Dose Ordered Sig/Jeanie Start Time Stop Time Status Last Admin Dose Admin Acetaminophen (Tylenol) 325 mg PRN Q4HRS PRN 02/10/18 17:00 Acetaminophen/ Hydrocodone Bitart (Lortab 5/325) 1 tab PRN Q4HRS PRN 02/10/18 16:45 02/14/18 05:45 1 TAB Al Hydroxide/Mg Hydroxide (Mylanta Plus Xs) 30 ml PRN Q2HR PRN 02/11/18 11:00 Allopurinol (Zyloprim) 100 mg BID 02/10/18 21:00 02/14/18 09:17 100 MG Aspirin (Children'S Aspirin) 81 mg DAILYWBKFT 02/10/18 17:00 02/14/18 09:17 81 MG Atorvastatin Calcium (Lipitor) 40 mg HS 02/10/18 21:00 02/13/18 20:00 40 MG Carvedilol (Coreg) 25 mg BIDWMEALS 02/11/18 17:00 02/14/18 09:18 25 MG Clonidine HCl (Catapres Tts-1) 1 patch WEEKLY 02/11/18 09:00 02/11/18 10:55 DC 02/11/18 08:37 1 PATCH Clonidine HCl (Catapres Tts-2) 1 patch WEEKLY 02/11/18 12:00 02/11/18 12:21 1 PATCH Clopidogrel Bisulfate (Plavix) 75 mg DAILY 02/10/18 17:00 02/14/18 09:17 75 MG Furosemide (Lasix) 80 mg BID94 02/10/18 17:00 02/11/18 10:55 DC 02/11/18 08:38 80 MG Gabapentin (Neurontin) 100 mg TID 02/12/18 14:00 02/14/18 09:17 100 MG Insulin Glargine (Lantus) 40 units QHS 02/13/18 21:00 02/13/18 20:09 40 UNITS Insulin Human Lispro (HumaLOG) 14 units TIDWMEALS 02/13/18 12:00 02/14/18 09:23 14 UNITS Lactulose (Lactulose) 20 gm Q2H 02/11/18 16:00 02/11/18 18:01 DC 02/11/18 16:56 20 GM Lorazepam (Ativan) 1 mg 1X ONCE 02/13/18 08:30 02/13/18 08:34 DC 02/13/18 09:08 1 MG Losartan Potassium (Cozaar) 100 mg DAILY 02/13/18 09:00 02/14/18 09:19 100 MG Metoclopramide HCl (Reglan Oral Solution) 10 mg QIDACHS 02/13/18 16:30 02/13/18 19:59 10 MG Metoclopramide HCl (Reglan Vial) 10 mg QIDACHS 02/10/18 17:00 02/13/18 13:57 DC 02/13/18 12:02 10 MG Metoclopramide HCl (Reglan) 5 mg TIDACHC 02/10/18 17:00 UNV Morphine Sulfate (Morphine Sulfate) 1 mg PRN Q4HRS PRN 02/10/18 17:00 Non-Formulary Medication (Pantoprazole Sodium (Protonix)) 40 mg DAILY 02/11/18 09:00 UNV Ondansetron HCl (Zofran) 4 mg Q6HRS 02/10/18 18:00 02/13/18 12:02 4 MG Pantoprazole Sodium (PROTONIX VIAL for IV PUSH) 40 mg BIDAC 02/10/18 17:00 8/20/18 13:57 DC 02/13/18 09:02 40 MG Pantoprazole Sodium (Protonix) 40 mg BIDAC 02/13/18 16:30 02/14/18 09:17 40 MG Sodium Chloride 1,000 ml @ 40 mls/hr Q24H 02/11/18 12:00 02/13/18 08:39 DC 02/12/18 15:13 40 MLS/HR Timolol Maleate (Timoptic 0.25% [facility]) 1 drop DAILY 02/11/18 09:00 02/14/18 09:17 1 DROP Lab Laboratory Tests Test 02/13/18 16:58 02/13/18 20:03 02/14/18 05:40 Glucose (Fingerstick) 149 mg/dL (70-99) 225 mg/dL (70-99) White Blood Count 3.7 x10^3/uL (4.0-11.0) Red Blood Count 3.61 x10^6/uL (4.30-5.70) Hemoglobin 10.9 g/dL (13.0-17.5) Hematocrit 32.6 % (39.0-53.0) Mean Corpuscular Volume 90 fL (79-100) Mean Corpuscular Hemoglobin 30 pg (25-35) Mean Corpuscular Hemoglobin Concent 33 g/dL (31-37) Red Cell Distribution Width 13.8 % (11.5-14.5) Platelet Count 167 x10^3/uL (140-400) Neutrophils (%) (Auto) 49 % (31-73) Lymphocytes (%) (Auto) 36 % (24-48) Monocytes (%) (Auto) 10 % (0-9) Eosinophils (%) (Auto) 4 % (0-3) Basophils (%) (Auto) 1 % (0-3) Neutrophils # (Auto) 1.8 x10^3uL (1.8-7.7) Lymphocytes # (Auto) 1.3 x10^3/uL (1.0-4.8) Monocytes # (Auto) 0.4 x10^3/uL (0.0-1.1) Eosinophils # (Auto) 0.2 x10^3/uL (0.0-0.7) Basophils # (Auto) 0.0 x10^3/uL (0.0-0.2) Sodium Level 141 mmol/L (136-145) Potassium Level 4.5 mmol/L (3.5-5.1) Chloride Level 105 mmol/L (98-107) Carbon Dioxide Level 30 mmol/L (21-32) Anion Gap 6 (6-14) Blood Urea Nitrogen 17 mg/dL (8-26) Creatinine 1.7 mg/dL (0.7-1.3) Estimated GFR (Cockcroft-Gault) 48.9 Glucose Level 329 mg/dL (70-99) Calcium Level 8.6 mg/dL (8.5-10.1) Results All relevant outside records, renal labs, imaging studies, telemetry/EKG's were reviewed. CORINNA BOWLES MD Feb 14, 2018 11:58
--- NOTE | 2018-02-14 12:21 | PDOC ---
PULMONARY PROGRESS NOTES Subjective no soa Vitals Vital Signs Date Time Temp Pulse Resp B/P (MAP) Pulse Ox O2 Delivery O2 Flow Rate FiO2 02/14/18 09:19 85 159/59 02/14/18 07:41 Room Air 02/14/18 07:00 98.5 20 93 98.5 General: Alert, No acute distress Lungs: Clear Cardiovascular: S1 Abdomen: Soft, Other (obese) Extremities: Other (trace edema) Labs Laboratory Tests Test 02/12/18 16:47 02/12/18 21:09 02/13/18 06:00 02/13/18 07:46 Glucose (Fingerstick) 153 mg/dL (70-99) 234 mg/dL (70-99) 84 mg/dL (70-99) White Blood Count 4.1 x10^3/uL (4.0-11.0) Red Blood Count 3.73 x10^6/uL (4.30-5.70) Hemoglobin 11.2 g/dL (13.0-17.5) Hematocrit 33.6 % (39.0-53.0) Mean Corpuscular Volume 90 fL (79-100) Mean Corpuscular Hemoglobin 30 pg (25-35) Mean Corpuscular Hemoglobin Concent 33 g/dL (31-37) Red Cell Distribution Width 13.6 % (11.5-14.5) Platelet Count 175 x10^3/uL (140-400) Neutrophils (%) (Auto) 51 % (31-73) Lymphocytes (%) (Auto) 32 % (24-48) Monocytes (%) (Auto) 12 % (0-9) Eosinophils (%) (Auto) 4 % (0-3) Basophils (%) (Auto) 1 % (0-3) Neutrophils # (Auto) 2.1 x10^3uL (1.8-7.7) Lymphocytes # (Auto) 1.3 x10^3/uL (1.0-4.8) Monocytes # (Auto) 0.5 x10^3/uL (0.0-1.1) Eosinophils # (Auto) 0.2 x10^3/uL (0.0-0.7) Basophils # (Auto) 0.0 x10^3/uL (0.0-0.2) Sodium Level 141 mmol/L (136-145) Potassium Level 3.9 mmol/L (3.5-5.1) Chloride Level 108 mmol/L (98-107) Carbon Dioxide Level 29 mmol/L (21-32) Anion Gap 4 (6-14) Blood Urea Nitrogen 19 mg/dL (8-26) Creatinine 1.6 mg/dL (0.7-1.3) Estimated GFR (Cockcroft-Gault) 52.4 Glucose Level 99 mg/dL (70-99) Calcium Level 8.3 mg/dL (8.5-10.1) Test 02/13/18 11:38 02/13/18 16:58 02/13/18 20:03 02/14/18 05:40 Glucose (Fingerstick) 268 mg/dL (70-99) 149 mg/dL (70-99) 225 mg/dL (70-99) White Blood Count 3.7 x10^3/uL (4.0-11.0) Red Blood Count 3.61 x10^6/uL (4.30-5.70) Hemoglobin 10.9 g/dL (13.0-17.5) Hematocrit 32.6 % (39.0-53.0) Mean Corpuscular Volume 90 fL (79-100) Mean Corpuscular Hemoglobin 30 pg (25-35) Mean Corpuscular Hemoglobin Concent 33 g/dL (31-37) Red Cell Distribution Width 13.8 % (11.5-14.5) Platelet Count 167 x10^3/uL (140-400) Neutrophils (%) (Auto) 49 % (31-73) Lymphocytes (%) (Auto) 36 % (24-48) Monocytes (%) (Auto) 10 % (0-9) Eosinophils (%) (Auto) 4 % (0-3) Basophils (%) (Auto) 1 % (0-3) Neutrophils # (Auto) 1.8 x10^3uL (1.8-7.7) Lymphocytes # (Auto) 1.3 x10^3/uL (1.0-4.8) Monocytes # (Auto) 0.4 x10^3/uL (0.0-1.1) Eosinophils # (Auto) 0.2 x10^3/uL (0.0-0.7) Basophils # (Auto) 0.0 x10^3/uL (0.0-0.2) Sodium Level 141 mmol/L (136-145) Potassium Level 4.5 mmol/L (3.5-5.1) Chloride Level 105 mmol/L (98-107) Carbon Dioxide Level 30 mmol/L (21-32) Anion Gap 6 (6-14) Blood Urea Nitrogen 17 mg/dL (8-26) Creatinine 1.7 mg/dL (0.7-1.3) Estimated GFR (Cockcroft-Gault) 48.9 Glucose Level 329 mg/dL (70-99) Calcium Level 8.6 mg/dL (8.5-10.1) Laboratory Tests Test 02/13/18 16:58 02/13/18 20:03 02/14/18 05:40 Glucose (Fingerstick) 149 mg/dL (70-99) 225 mg/dL (70-99) White Blood Count 3.7 x10^3/uL (4.0-11.0) Red Blood Count 3.61 x10^6/uL (4.30-5.70) Hemoglobin 10.9 g/dL (13.0-17.5) Hematocrit 32.6 % (39.0-53.0) Mean Corpuscular Volume 90 fL (79-100) Mean Corpuscular Hemoglobin 30 pg (25-35) Mean Corpuscular Hemoglobin Concent 33 g/dL (31-37) Red Cell Distribution Width 13.8 % (11.5-14.5) Platelet Count 167 x10^3/uL (140-400) Neutrophils (%) (Auto) 49 % (31-73) Lymphocytes (%) (Auto) 36 % (24-48) Monocytes (%) (Auto) 10 % (0-9) Eosinophils (%) (Auto) 4 % (0-3) Basophils (%) (Auto) 1 % (0-3) Neutrophils # (Auto) 1.8 x10^3uL (1.8-7.7) Lymphocytes # (Auto) 1.3 x10^3/uL (1.0-4.8) Monocytes # (Auto) 0.4 x10^3/uL (0.0-1.1) Eosinophils # (Auto) 0.2 x10^3/uL (0.0-0.7) Basophils # (Auto) 0.0 x10^3/uL (0.0-0.2) Sodium Level 141 mmol/L (136-145) Potassium Level 4.5 mmol/L (3.5-5.1) Chloride Level 105 mmol/L (98-107) Carbon Dioxide Level 30 mmol/L (21-32) Anion Gap 6 (6-14) Blood Urea Nitrogen 17 mg/dL (8-26) Creatinine 1.7 mg/dL (0.7-1.3) Estimated GFR (Cockcroft-Gault) 48.9 Glucose Level 329 mg/dL (70-99) Calcium Level 8.6 mg/dL (8.5-10.1) Medications Active Scripts Medications Dose Route/Sig Max Daily Dose Days Date Category Protonix (Pantoprazole Sodium) 20 Mg Tablet.dr 40 Mg PO DAILY 02/10/18 Reported Hydrocodone-Apap 5-325 (Hydrocodone Bit/Acetaminophen) 1 Each Tablet 1 Tab PO Q4HRS PRN 02/10/18 Reported Losartan Potassium 50 Mg Tablet 50 Mg PO DAILY 02/10/18 Reported Catapres-Tts 1 (Clonidine) 1 Each Patch.tdwk 1 Each TD WEEKLY 02/10/18 Reported Carvedilol 12.5 Mg Tablet 1 Tab PO BID 02/10/18 Reported Humalog (Insulin Lispro) 100 Unit/1 Ml Insuln.pen 16 Units SQ TIDAC 30 02/02/18 Rx Lantus Solostar (Insulin Glargine,Hum.rec.anlog) 100 Unit/1 Ml Insuln.pen 40 Units SQ QHS 30 02/02/18 Rx Amlodipine Besylate 5 Mg Tablet 5 Mg PO DAILY 30 02/02/18 Rx Omeprazole 40 Mg Capsule.dr 1 Cap PO DAILY 01/26/18 Reported Clopidogrel (Clopidogrel Bisulfate) 75 Mg Tablet 1 Tab PO DAILY 01/26/18 Reported Allopurinol 100 Mg Tablet 1 Tab PO BID 01/26/18 Reported Furosemide 80 Mg Tablet 1 Tab PO BID 01/26/18 Reported Metoclopramide Hcl 10 Mg Tablet 10 Mg PO TIDACHC 10/29/15 Rx Children's Aspirin (Aspirin) 81 Mg Tab.chew 81 Mg PO DAILYWBKFT 10/29/15 Rx Centrum Silver Tablet (Multivits-Min/Fa/Lycopene/Lut) 1 Each Tablet 1 Each PO 08/03/13 Reported Fish Oil ([place]-3 Fatty Acids) 300 Mg Capsule 1,000 Mg PO DAILY 08/03/13 Reported Atorvastatin Calcium 40 Mg Tablet 40 Mg PO HS 08/03/13 Reported Betimol (Timolol) 5 Ml Drops 5 Ml OP DAILY 08/03/13 Reported Impression . 1. A tiny 6 mm nodule medially in the right middle lobe. This is too small for PET scan and does not need any invasive intervention at present. I would recommend repeating a CT chest in 6 months. 2. Enlarged thyroid nodule with extension into the mediastinum. Would recommend a workup per primary care physician. 3. History of tobacco use for 52 years. Suspect underlying chronic obstructive pulmonary disease. 4. History highly suggestive of sleep apnea. He would benefit from outpatient polysomnogram. Plan . 1. Repeat CT chest in 6 months to follow up on the tiny lung nodule. 2. Smoking cessation counseling provided. He plans to quit. 3. Follow up CT chest in 6 months. 4. Workup of thyroid nodule/mass per Dr. Chery. 5. Weight loss is strongly advised. 6. Outpatient polysomnogram is recommended. d/w DR Chery. He will arrange out pt ct chest CRISTINA LAND MD Feb 14, 2018 12:20
[2018-02-14] MEDS ORDERED: ONDANSETRON ODT 4 MG TAB.RAPDIS. PO PRN (12:30)
[2018-02-14 15:00] VITALS: BP 180/72
--- NOTE | 2018-02-14 15:45 | RAD ---
Thyroid ultrasound, 02/14/2018: HISTORY: Left thyroid enlargement By history the right lobe of the gland has been surgically removed. The visualized portions of the left lobe of the gland measures 6.8 x 4.8 x 3.[address] study shows that there is a large substernal component on the left which cannot be visualized sonographically. Comparison of the CT images from 02/13/[address] neck study from 12/26/2013 suggests that the left thyroid enlargement is similar to that seen on the older study. The visualized portions of the left lobe are heterogeneous with a dominant solid nodule partially visualized in the lower pole. Its visualized margins are smooth. The nodule is predominantly isoechoic relative to the remainder of the gland with only a tiny cystic component. No calcifications are seen within this mass. No highly suspicious sonographic features are seen. The visualized component measures approximately 4 cm in greatest dimension. The remainder of the left lobe demonstrates several smaller, slightly hypoechoic nodules which are somewhat poorly marginated. IMPRESSION: 1. Status post right thyroid resection. 2. Left sided multinodular goiter with substernal extension, better demonstrated on the recent CT images. A similar appearance was present on an old CT study from 2013. Electronically signed by: Sukumar Gould MD (02/14/2018 3:42 PM) [facility]
--- NOTE | 2018-02-14 17:24 | PDOC ---
PROGRESS NOTES Subjective Subjective progress note dictated earlier today. discussed with dr. gandhi. will increase insulin as blood sugars are high and start amlodipine as bp is high Objective Objective Vital Signs Date Time Temp Pulse Resp B/P (MAP) Pulse Ox O2 Delivery O2 Flow Rate FiO2 02/14/18 17:12 68 180/72 02/14/18 15:00 98.1 20 98 Room Air 98.1 Intake and Output 02/14/18 07:00 Intake Total 1620 ml Balance 1620 ml Intake Oral 1620 ml # Voids 8 Comment Review of Relevant I have reviewed the following items puneet (where applicable) has been applied. Labs Laboratory Tests Test 02/12/18 21:09 02/13/18 06:00 02/13/18 07:46 02/13/18 11:38 Glucose (Fingerstick) 234 mg/dL (70-99) 84 mg/dL (70-99) 268 mg/dL (70-99) White Blood Count 4.1 x10^3/uL (4.0-11.0) Red Blood Count 3.73 x10^6/uL (4.30-5.70) Hemoglobin 11.2 g/dL (13.0-17.5) Hematocrit 33.6 % (39.0-53.0) Mean Corpuscular Volume 90 fL (79-100) Mean Corpuscular Hemoglobin 30 pg (25-35) Mean Corpuscular Hemoglobin Concent 33 g/dL (31-37) Red Cell Distribution Width 13.6 % (11.5-14.5) Platelet Count 175 x10^3/uL (140-400) Neutrophils (%) (Auto) 51 % (31-73) Lymphocytes (%) (Auto) 32 % (24-48) Monocytes (%) (Auto) 12 % (0-9) Eosinophils (%) (Auto) 4 % (0-3) Basophils (%) (Auto) 1 % (0-3) Neutrophils # (Auto) 2.1 x10^3uL (1.8-7.7) Lymphocytes # (Auto) 1.3 x10^3/uL (1.0-4.8) Monocytes # (Auto) 0.5 x10^3/uL (0.0-1.1) Eosinophils # (Auto) 0.2 x10^3/uL (0.0-0.7) Basophils # (Auto) 0.0 x10^3/uL (0.0-0.2) Sodium Level 141 mmol/L (136-145) Potassium Level 3.9 mmol/L (3.5-5.1) Chloride Level 108 mmol/L (98-107) Carbon Dioxide Level 29 mmol/L (21-32) Anion Gap 4 (6-14) Blood Urea Nitrogen 19 mg/dL (8-26) Creatinine 1.6 mg/dL (0.7-1.3) Estimated GFR (Cockcroft-Gault) 52.4 Glucose Level 99 mg/dL (70-99) Calcium Level 8.3 mg/dL (8.5-10.1) Test 02/13/18 16:58 02/13/18 20:03 02/14/18 05:40 02/14/18 12:03 Glucose (Fingerstick) 149 mg/dL (70-99) 225 mg/dL (70-99) 390 mg/dL (70-99) White Blood Count 3.7 x10^3/uL (4.0-11.0) Red Blood Count 3.61 x10^6/uL (4.30-5.70) Hemoglobin 10.9 g/dL (13.0-17.5) Hematocrit 32.6 % (39.0-53.0) Mean Corpuscular Volume 90 fL (79-100) Mean Corpuscular Hemoglobin 30 pg (25-35) Mean Corpuscular Hemoglobin Concent 33 g/dL (31-37) Red Cell Distribution Width 13.8 % (11.5-14.5) Platelet Count 167 x10^3/uL (140-400) Neutrophils (%) (Auto) 49 % (31-73) Lymphocytes (%) (Auto) 36 % (24-48) Monocytes (%) (Auto) 10 % (0-9) Eosinophils (%) (Auto) 4 % (0-3) Basophils (%) (Auto) 1 % (0-3) Neutrophils # (Auto) 1.8 x10^3uL (1.8-7.7) Lymphocytes # (Auto) 1.3 x10^3/uL (1.0-4.8) Monocytes # (Auto) 0.4 x10^3/uL (0.0-1.1) Eosinophils # (Auto) 0.2 x10^3/uL (0.0-0.7) Basophils # (Auto) 0.0 x10^3/uL (0.0-0.2) Sodium Level 141 mmol/L (136-145) Potassium Level 4.5 mmol/L (3.5-5.1) Chloride Level 105 mmol/L (98-107) Carbon Dioxide Level 30 mmol/L (21-32) Anion Gap 6 (6-14) Blood Urea Nitrogen 17 mg/dL (8-26) Creatinine 1.7 mg/dL (0.7-1.3) Estimated GFR (Cockcroft-Gault) 48.9 Glucose Level 329 mg/dL (70-99) Calcium Level 8.6 mg/dL (8.5-10.1) Test 02/14/18 17:01 Glucose (Fingerstick) 244 mg/dL (70-99) Laboratory Tests Test 02/13/18 20:03 02/14/18 05:40 02/14/18 12:03 02/14/18 17:01 Glucose (Fingerstick) 225 mg/dL (70-99) 390 mg/dL (70-99) 244 mg/dL (70-99) White Blood Count 3.7 x10^3/uL (4.0-11.0) Red Blood Count 3.61 x10^6/uL (4.30-5.70) Hemoglobin 10.9 g/dL (13.0-17.5) Hematocrit 32.6 % (39.0-53.0) Mean Corpuscular Volume 90 fL (79-100) Mean Corpuscular Hemoglobin 30 pg (25-35) Mean Corpuscular Hemoglobin Concent 33 g/dL (31-37) Red Cell Distribution Width 13.8 % (11.5-14.5) Platelet Count 167 x10^3/uL (140-400) Neutrophils (%) (Auto) 49 % (31-73) Lymphocytes (%) (Auto) 36 % (24-48) Monocytes (%) (Auto) 10 % (0-9) Eosinophils (%) (Auto) 4 % (0-3) Basophils (%) (Auto) 1 % (0-3) Neutrophils # (Auto) 1.8 x10^3uL (1.8-7.7) Lymphocytes # (Auto) 1.3 x10^3/uL (1.0-4.8) Monocytes # (Auto) 0.4 x10^3/uL (0.0-1.1) Eosinophils # (Auto) 0.2 x10^3/uL (0.0-0.7) Basophils # (Auto) 0.0 x10^3/uL (0.0-0.2) Sodium Level 141 mmol/L (136-145) Potassium Level 4.5 mmol/L (3.5-5.1) Chloride Level 105 mmol/L (98-107) Carbon Dioxide Level 30 mmol/L (21-32) Anion Gap 6 (6-14) Blood Urea Nitrogen 17 mg/dL (8-26) Creatinine 1.7 mg/dL (0.7-1.3) Estimated GFR (Cockcroft-Gault) 48.9 Glucose Level 329 mg/dL (70-99) Calcium Level 8.6 mg/dL (8.5-10.1) Medications Current Medications Sodium Chloride 1,000 ml @ 60 mls/hr [id number] IV Last administered on 08:39; Start 02/10/18 at 15:30; Stop 02/11/18 at 10:55; Status DC Allopurinol (Zyloprim) 100 mg BID PO Last administered on 02/14/18 09:17; Start 02/10/18 at 21:00 Aspirin (Children'S Aspirin) 81 mg DAILYWBKFT PO Last administered on 09:17; Start 02/10/18 at 17:00 Clopidogrel Bisulfate (Plavix) 75 mg DAILY PO Last administered on 02/14/18 09 :17; Start 02/10/18 at 17:00 Furosemide (Lasix) 80 mg BID94 PO Last administered on 02/11/18at 08:38; Start 02/10/18 at 17:00; Stop 02/11/18 at 10:55; Status DC Metoclopramide HCl (Reglan) 5 mg TIDACHC PO ; Start 02/10/18 at 17:00; Status UNV Pantoprazole Sodium (PROTONIX VIAL for IV PUSH) 40 mg DAILYAC IVP ; Start at 17:00; Stop 02/10/18 at 17:00; Status DC Metoclopramide HCl (Reglan Vial) 10 mg QIDACHS IV Last administered on at 12:02; Start 02/10/18 at 17:00; Stop 02/13/18 at 13:57; Status DC Pantoprazole Sodium (PROTONIX VIAL for IV PUSH) 40 mg BIDAC IVP Last administered on 02/13/18 09:02; Start 02/10/18 at 17:00; Stop 02/13/18 at 13:57 ; Status DC Timolol Maleate (Timoptic 0.25% [facility]) 1 drop DAILY OU Last administered on 09:17; Start 02/11/18 at 09:00 Atorvastatin Calcium (Lipitor) 40 mg HS PO Last administered on 02/13/18 20:00 ; Start 02/10/18 at 21:00 Carvedilol (Coreg) 12.5 mg BIDWMEALS PO Last administered on 02/11/18at 08:38; Start 02/10/18 at 21:00; Stop 02/11/18 at 10:55; Status DC Clonidine HCl (Catapres Tts-1) 1 patch WEEKLY TD Last administered on 08:37; Start 02/11/18 at 09:00; Stop 02/11/18 at 10:55; Status DC Acetaminophen/ Hydrocodone Bitart (Lortab 5/325) 1 tab PRN Q4HRS PRN PO MODERATE-SEVERE PAIN Last administered on 02/14/18at 05:45; Start 02/10/18 at 16: 45 Losartan Potassium (Cozaar) 50 mg DAILY PO Last administered on 02/11/18at 08:39 ; Start 02/11/18 at 09:00; Stop 02/11/18 at 10:56; Status DC Non-Formulary Medication (Pantoprazole Sodium (Protonix)) 40 mg DAILY PO ; Start 02/11/18 at 09:00; Status UNV Acetaminophen (Tylenol) 325 mg PRN Q4HRS PRN PO MILD PAIN / TEMP; Start at 17:00 Ondansetron HCl (Zofran) 4 mg Q6HRS IV Last administered on 02/13/18at 12:02; Start 02/10/18 at 18:00 Lorazepam (Ativan) 1 mg 1X ONCE IV ; Start 02/10/18 at 17:30; Stop 02/10/18 at 22:30; Status DC Insulin Human Lispro (HumaLOG) 6 units TIDWMEALS SQ Last administered on at 08:00; Start 02/10/18 at 17:30; Stop 02/11/18 at 10:56; Status DC Insulin Glargine (Lantus) 20 units QHS SQ Last administered on 02/10/18at 22:49 ; Start 02/10/18 at 21:00; Stop 02/11/18 at 10:55; Status DC Morphine Sulfate (Morphine Sulfate) 2 mg PRN Q4HRS PRN IV SEVERE PAIN Last administered on 02/12/18at 20:48; Start 02/10/18 at 17:00 Morphine Sulfate (Morphine Sulfate) 1 mg PRN Q4HRS PRN IV MODERATE PAIN; Start 02/10/18 at 17:00 Lorazepam (Ativan) 1 mg 1X ONCE IV ; Start 02/11/18 at 08:00; Stop 02/11/18 at 08:01; Status Cancel Carvedilol (Coreg) 25 mg BIDWMEALS PO Last administered on 02/14/18at 17:12; Start 02/11/18 at 17:00 Insulin Glargine (Lantus) 40 units QHS SQ Last administered on 02/11/18at 20:41 ; Start 02/11/18 at 21:00; Stop 02/12/18 at 12:29; Status DC Insulin Human Lispro (HumaLOG) 12 units TIDWMEALS SQ Last administered on at 11:51; Start 02/11/18 at 12:00; Stop 02/12/18 at 12:29; Status DC Losartan Potassium (Cozaar) 100 mg DAILY PO Last administered on 02/12/18at 08: 53; Start 02/12/18 at 09:00; Stop 02/13/18 at 08:38; Status DC Clonidine HCl (Catapres Tts-2) 1 patch WEEKLY TD Last administered on at 12:21; Start 02/11/18 at 12:00 Sodium Chloride 1,000 ml @ 40 mls/hr Q24H IV Last administered on 02/12/18at 15 :13; Start 02/11/18 at 12:00; Stop 02/13/18 at 08:39; Status DC Al Hydroxide/Mg Hydroxide (Mylanta Plus Xs) 30 ml PRN Q2HR PRN PO HEARTBURN / GAS; Start 02/11/18 at 11:00 Lactulose (Lactulose) 20 gm Q2H PO Last administered on 02/11/18at 16:56; Start 02/11/18 at 16:00; Stop 02/11/18 at 18:01; Status DC Lorazepam (Ativan) 1 mg 1X ONCE IV Last administered on 02/11/18at 13:41; Start 02/11/18 at 14:00; Stop 02/11/18 at 14:01; Status DC Insulin Glargine (Lantus) 50 units QHS SQ Last administered on 02/12/18at 20:58 ; Start 02/12/18 at 21:00; Stop 02/13/18 at 08:34; Status DC Insulin Human Lispro (HumaLOG) 18 units TIDWMEALS SQ ; Start 02/12/18 at 12:30; Stop 02/12/18 at 12:31; Status DC Gabapentin (Neurontin) 100 mg TID PO Last administered on 02/14/18at 12:32; Start 02/12/18 at 14:00 Insulin Human Lispro (HumaLOG) 18 units TIDWMEALS SQ Last administered on at 17:33; Start 02/12/18 at 17:00; Stop 02/13/18 at 08:34; Status DC Lorazepam (Ativan) 1 mg 1X ONCE IV Last administered on 02/13/18at 09:08; Start 02/13/18 at 08:30; Stop 02/13/18 at 08:34; Status DC Insulin Glargine (Lantus) 40 units QHS SQ Last administered on 02/13/18at 20:09 ; Start 02/13/18 at 21:00 Insulin Human Lispro (HumaLOG) 14 units TIDWMEALS SQ Last administered on at 17:14; Start 02/13/18 at 12:00 Losartan Potassium (Cozaar) 100 mg DAILY PO Last administered on 02/14/18at 09: 19; Start 02/13/18 at 09:00 Pantoprazole Sodium (Protonix) 40 mg BIDAC PO Last administered on 02/14/18at 17 :12; Start 02/13/18 at 16:30 Metoclopramide HCl (Reglan Oral Solution) 10 mg QIDACHS PO Last administered on 02/13/18at 19:59; Start 02/13/18 at 16:30 Ondansetron HCl (Zofran Odt) 4 mg PRN Q8HRS PRN PO NAUSEA/VOMITING; Start 02/14 at 12:30 Active Scripts Active Humalog (Insulin Lispro) 100 Unit/1 Ml Insuln.pen 16 Units SQ TIDAC 30 Days Lantus Solostar (Insulin Glargine,Hum.rec.anlog) 100 Unit/1 Ml Insuln.pen 40 Units SQ QHS 30 Days Amlodipine Besylate 5 Mg Tablet 5 Mg PO DAILY 30 Days Metoclopramide Hcl 10 Mg Tablet 10 Mg PO TIDACHC Children's Aspirin (Aspirin) 81 Mg Tab.chew 81 Mg PO DAILYWBKFT Reported Protonix (Pantoprazole Sodium) 20 Mg Tablet.dr 40 Mg PO DAILY Hydrocodone-Apap 5-325 (Hydrocodone Bit/Acetaminophen) 1 Each Tablet 1 Tab PO Q4HRS PRN Losartan Potassium 50 Mg Tablet 50 Mg PO DAILY Catapres-Tts 1 (Clonidine) 1 Each Patch.tdwk 1 Each TD WEEKLY Carvedilol 12.5 Mg Tablet 1 Tab PO BID Omeprazole 40 Mg Capsule.dr 1 Cap PO DAILY Clopidogrel (Clopidogrel Bisulfate) 75 Mg Tablet 1 Tab PO DAILY Allopurinol 100 Mg Tablet 1 Tab PO BID Furosemide 80 Mg Tablet 1 Tab PO BID Centrum Silver Tablet (Multivits-Min/Fa/Lycopene/Lut) 1 Each Tablet 1 Each PO Fish Oil ([place]-3 Fatty Acids) 300 Mg Capsule 1,000 Mg PO DAILY Atorvastatin Calcium 40 Mg Tablet 40 Mg PO HS Betimol (Timolol) 5 Ml Drops 5 Ml OP DAILY Vitals/I & O Vital Sign - Last 24 Hours 02/13/18 02/13/18 02/13/18 02/13/18 19:54 20:00 20:01 23:28 Temp 98.1 98.5 98.1 98.5 Pulse 67 71 Resp 16 16 B/P (MAP) 169/67 (101) 190/86 (120) Pulse Ox 94 93 O2 Delivery Room Air Room Air Room Air Room Air 02/14/18 02/14/18 02/14/18 02/14/18 03:40 05:45 07:00 07:08 Temp 98.6 98.5 98.6 98.5 Pulse 81 85 Resp 16 20 B/P (MAP) 147/76 (99) 159/59 (92) Pulse Ox 90 93 O2 Delivery Room Air Room Air Room Air Room Air 02/14/18 02/14/18 02/14/18 02/14/18 07:41 09:18 09:19 15:00 Temp 98.1 98.1 Pulse 85 85 68 Resp 20 B/P (MAP) 159/59 159/59 180/72 (108) Pulse Ox 98 O2 Delivery Room Air Room Air 02/14/18 17:12 Pulse 68 B/P (MAP) 180/72 Intake and Output 02/13/18 02/13/18 02/14/18 15:00 23:00 07:00 Intake Total 1000 ml 620 ml Balance 1000 ml 620 ml JONNY JOHN MD Feb 14, 2018 17:24
[2018-02-14] MEDS: amLODIPine BESYLATE 5 MG TABLET PO SCH (17:39)
--- NOTE | 2018-02-14 18:18 | PN ---
DATE: 02/14/2018 LOCATION: The patient is in room 662. TIME: 10:23 a.m. SUBJECTIVE: He has got 2/10 epigastric abdominal pain, which has improved. He has some back pain, it is more related to lumbar strain. He is not having any nausea or vomiting. He is eating solid foods. I spoke with Dr. Ball and he had mentioned a CAT scan of the chest showed a right lung nodule and will need a repeat CAT scan of the chest in 6 months, but he also has an enlarged left thyroid extending into the mediastinum and so, we will apparently had a right thyroidectomy in the past. We will have Interventional Radiology see if they can do a thyroid biopsy and we will consult the general surgeon for this also. Computers are not working, so I do not have any access to his labs. OBJECTIVE: VITAL SIGNS: Stable. HEART: Reveals an S1, S2. There is no S3 or murmur. LUNGS: Clear. ABDOMEN: Obese and soft with mild epigastric tenderness. LOWER EXTREMITIES: Without edema. SKIN: No rashes. ASSESSMENT: 1. Epigastric abdominal pain. Unclear of the etiology. 2. Nausea and vomiting, improved. 3. Right lung nodule. 4. Enlarged left thyroid lobe extending into the mediastinum. 5. Diabetes mellitus type 2. 6. Peripheral arterial disease. 7. Hypertension. 8. Chronic kidney disease, stage 3. PLAN: At this time is to consult a general surgeon for the enlarged left lobe of the thyroid and we will consult Interventional Radiology for thyroid biopsy. We will continue with the IV Zofran and IV Reglan and solid foods at this time and analgesics for his back pain. JONNY JOHN MD DR: SANJUANA/mis JOB#: [id number] / [id number]
[2018-02-14 19:36] VITALS: BP 182/82
[2018-02-14] MEDS ORDERED: INSULIN GLARGINE 300 UNITS/3 ML INSULN.PEN. SQ SCH (21:00)
[2018-02-14] MEDS: ATORVASTATIN CALCIUM 40 MG TABLET. PO SCH (21:16)
[2018-02-14 23:03] VITALS: BP 164/68
[2018-02-15 03:36] VITALS: BP 183/73
[2018-02-15 07:00] VITALS: BP 154/69
[2018-02-15] MEDS ORDERED: INSULIN LISPRO 300 UNITS/3 ML INSULN.PEN. SQ SCH ×2 (08:00→12:00)
--- NOTE | 2018-02-15 09:14 | PDOC ---
PULMONARY PROGRESS NOTES Subjective no soa Vitals Vital Signs Date Time Temp Pulse Resp B/P (MAP) Pulse Ox O2 Delivery O2 Flow Rate FiO2 02/15/18 07:00 98.2 73 18 154/69 (97) 96 Room Air 98.2 General: Alert, No acute distress Lungs: Clear Cardiovascular: S1 Abdomen: Soft, Other (obese) Extremities: Other (trace edema) Labs Laboratory Tests Test 02/13/18 11:38 02/13/18 16:58 02/13/18 20:03 02/14/18 05:40 Glucose (Fingerstick) 268 mg/dL (70-99) 149 mg/dL (70-99) 225 mg/dL (70-99) White Blood Count 3.7 x10^3/uL (4.0-11.0) Red Blood Count 3.61 x10^6/uL (4.30-5.70) Hemoglobin 10.9 g/dL (13.0-17.5) Hematocrit 32.6 % (39.0-53.0) Mean Corpuscular Volume 90 fL (79-100) Mean Corpuscular Hemoglobin 30 pg (25-35) Mean Corpuscular Hemoglobin Concent 33 g/dL (31-37) Red Cell Distribution Width 13.8 % (11.5-14.5) Platelet Count 167 x10^3/uL (140-400) Neutrophils (%) (Auto) 49 % (31-73) Lymphocytes (%) (Auto) 36 % (24-48) Monocytes (%) (Auto) 10 % (0-9) Eosinophils (%) (Auto) 4 % (0-3) Basophils (%) (Auto) 1 % (0-3) Neutrophils # (Auto) 1.8 x10^3uL (1.8-7.7) Lymphocytes # (Auto) 1.3 x10^3/uL (1.0-4.8) Monocytes # (Auto) 0.4 x10^3/uL (0.0-1.1) Eosinophils # (Auto) 0.2 x10^3/uL (0.0-0.7) Basophils # (Auto) 0.0 x10^3/uL (0.0-0.2) Sodium Level 141 mmol/L (136-145) Potassium Level 4.5 mmol/L (3.5-5.1) Chloride Level 105 mmol/L (98-107) Carbon Dioxide Level 30 mmol/L (21-32) Anion Gap 6 (6-14) Blood Urea Nitrogen 17 mg/dL (8-26) Creatinine 1.7 mg/dL (0.7-1.3) Estimated GFR (Cockcroft-Gault) 48.9 Glucose Level 329 mg/dL (70-99) Calcium Level 8.6 mg/dL (8.5-10.1) Test 02/14/18 12:03 02/14/18 17:01 02/14/18 21:15 02/15/18 07:40 Glucose (Fingerstick) 390 mg/dL (70-99) 244 mg/dL (70-99) 269 mg/dL (70-99) 227 mg/dL (70-99) Laboratory Tests Test 02/14/18 12:03 02/14/18 17:01 02/14/18 21:15 02/15/18 07:40 Glucose (Fingerstick) 390 mg/dL (70-99) 244 mg/dL (70-99) 269 mg/dL (70-99) 227 mg/dL (70-99) Medications Active Scripts Medications Dose Route/Sig Max Daily Dose Days Date Category Protonix (Pantoprazole Sodium) 20 Mg Tablet.dr 40 Mg PO DAILY 02/10/18 Reported Hydrocodone-Apap 5-325 (Hydrocodone Bit/Acetaminophen) 1 Each Tablet 1 Tab PO Q4HRS PRN 02/10/18 Reported Losartan Potassium 50 Mg Tablet 50 Mg PO DAILY 02/10/18 Reported Catapres-Tts 1 (Clonidine) 1 Each Patch.tdwk 1 Each TD WEEKLY 02/10/18 Reported Carvedilol 12.5 Mg Tablet 1 Tab PO BID 02/10/18 Reported Humalog (Insulin Lispro) 100 Unit/1 Ml Insuln.pen 16 Units SQ TIDAC 30 02/02/18 Rx Lantus Solostar (Insulin Glargine,Hum.rec.anlog) 100 Unit/1 Ml Insuln.pen 40 Units SQ QHS 30 02/02/18 Rx Amlodipine Besylate 5 Mg Tablet 5 Mg PO DAILY 30 02/02/18 Rx Omeprazole 40 Mg Capsule.dr 1 Cap PO DAILY 01/26/18 Reported Clopidogrel (Clopidogrel Bisulfate) 75 Mg Tablet 1 Tab PO DAILY 01/26/18 Reported Allopurinol 100 Mg Tablet 1 Tab PO BID 01/26/18 Reported Furosemide 80 Mg Tablet 1 Tab PO BID 01/26/18 Reported Metoclopramide Hcl 10 Mg Tablet 10 Mg PO TIDACHC 10/29/15 Rx Children's Aspirin (Aspirin) 81 Mg Tab.chew 81 Mg PO DAILYWBKFT 10/29/15 Rx Centrum Silver Tablet (Multivits-Min/Fa/Lycopene/Lut) 1 Each Tablet 1 Each PO 08/03/13 Reported Fish Oil ([place]-3 Fatty Acids) 300 Mg Capsule 1,000 Mg PO DAILY 08/03/13 Reported Atorvastatin Calcium 40 Mg Tablet 40 Mg PO HS 08/03/13 Reported Betimol (Timolol) 5 Ml Drops 5 Ml OP DAILY 08/03/13 Reported Impression . 1. A tiny 6 mm nodule medially in the right middle lobe. This is too small for PET scan and does not need any invasive intervention at present. I would recommend repeating a CT chest in 6 months. 2. Enlarged thyroid nodule with extension into the mediastinum. Would recommend a workup per primary care physician. 3. History of tobacco use for 52 years. Suspect underlying chronic obstructive pulmonary disease. 4. History highly suggestive of sleep apnea. He would benefit from outpatient polysomnogram. Plan . 1. Repeat CT chest in 6 months to follow up on the tiny lung nodule. 2. Smoking cessation counseling provided. He plans to quit. 3. Follow up CT chest in 6 months. 4. Workup of thyroid nodule/mass per Dr. Chery.BIOPSY PENDING 5. Weight loss is strongly advised. 6. Outpatient polysomnogram is recommended. d/w DR Chery. He will arrange out pt ct chest CRISTINA LAND MD Feb 15, 2018 09:14
[2018-02-15] MEDS: LOSARTAN POTASSIUM 25 MG TABLET. PO SCH (09:40)
[2018-02-15] MEDS: CARVEDILOL 12.5 MG TABLET. PO SCH (09:40)
[2018-02-15] MEDS: CLOPIDOGREL BISULFATE 75 MG TABLET PO SCH (09:40)
[2018-02-15] MEDS: METOCLOPRAMIDE ORAL SOLN 10 MG/10 ML SOLUTION. PO SCH ×2 (09:41→12:44)
[2018-02-15] MEDS: PANTOPRAZOLE 40 MG TABLET.DR. PO SCH (09:41)
[2018-02-15] MEDS: amLODIPine BESYLATE 5 MG TABLET PO SCH (09:41)
[2018-02-15] MEDS: GABAPENTIN 100 MG CAPSULE. PO SCH (09:41)
[2018-02-15] MEDS: ALLOPURINOL 100 MG TABLET. PO SCH (09:41)
[2018-02-15] MEDS: ASPIRIN CHEWABLE 81 MG TABLET. PO SCH (09:41)
[2018-02-15] MEDS: TIMOLOL 0.25% OPHTH SOLUTION 5ML BOTTLE. OU SCH (09:42)
--- NOTE | 2018-02-15 09:52 | PDOC ---
PROGRESS NOTES Subjective Subjective FEELS BETTER. EATING WELL. NO VOMITING. NO ABDOMINAL PAIN. blood sugars high and will increase insulin. lumbar strain and low back pain Objective Objective Vital Signs Date Time Temp Pulse Resp B/P (MAP) Pulse Ox O2 Delivery O2 Flow Rate FiO2 02/15/18 09:41 73 154/69 02/15/18 07:00 98.2 18 96 Room Air 98.2 Intake and Output 02/15/18 07:00 Intake Total 1500 ml Output Total 2 ml Balance 1498 ml Intake Oral 1500 ml Output Stool Total 2 ml # Voids 5 Physical Exam Abdomen: Soft, No tenderness Heart: Regular rate, Normal S1, Normal S2 Extremities: No edema General: Alert, Cooperative HEENT: Atraumatic Lungs: Clear to auscultation Neuro: Normal speech Psych/Mental Status: Mental status NL Skin: No rashes Assessment Assessment . Epigastric abdominal pain associated with poor intake of food and weight loss. improved. ct scan of abdomen and pelvis and GI emptying scan negative and abdominal ultrasound negative. the last week. less abdominal pain 2. Acute kidney injury resolved on top of chronic kidney disease stage 3, 3. Diabetes mellitus, hyperglycemia as he was not taking his insulin at home. 4. Hypertension. bp is okay 5. Peripheral arterial disease. Morbid obesity small right lung nodule in a smoker Plan Plan of Care dismiss today Comment Review of Relevant I have reviewed the following items puneet (where applicable) has been applied. Labs Laboratory Tests Test 02/13/18 11:38 02/13/18 16:58 02/13/18 20:03 02/14/18 05:40 Glucose (Fingerstick) 268 mg/dL (70-99) 149 mg/dL (70-99) 225 mg/dL (70-99) White Blood Count 3.7 x10^3/uL (4.0-11.0) Red Blood Count 3.61 x10^6/uL (4.30-5.70) Hemoglobin 10.9 g/dL (13.0-17.5) Hematocrit 32.6 % (39.0-53.0) Mean Corpuscular Volume 90 fL (79-100) Mean Corpuscular Hemoglobin 30 pg (25-35) Mean Corpuscular Hemoglobin Concent 33 g/dL (31-37) Red Cell Distribution Width 13.8 % (11.5-14.5) Platelet Count 167 x10^3/uL (140-400) Neutrophils (%) (Auto) 49 % (31-73) Lymphocytes (%) (Auto) 36 % (24-48) Monocytes (%) (Auto) 10 % (0-9) Eosinophils (%) (Auto) 4 % (0-3) Basophils (%) (Auto) 1 % (0-3) Neutrophils # (Auto) 1.8 x10^3uL (1.8-7.7) Lymphocytes # (Auto) 1.3 x10^3/uL (1.0-4.8) Monocytes # (Auto) 0.4 x10^3/uL (0.0-1.1) Eosinophils # (Auto) 0.2 x10^3/uL (0.0-0.7) Basophils # (Auto) 0.0 x10^3/uL (0.0-0.2) Sodium Level 141 mmol/L (136-145) Potassium Level 4.5 mmol/L (3.5-5.1) Chloride Level 105 mmol/L (98-107) Carbon Dioxide Level 30 mmol/L (21-32) Anion Gap 6 (6-14) Blood Urea Nitrogen 17 mg/dL (8-26) Creatinine 1.7 mg/dL (0.7-1.3) Estimated GFR (Cockcroft-Gault) 48.9 Glucose Level 329 mg/dL (70-99) Calcium Level 8.6 mg/dL (8.5-10.1) Test 02/14/18 12:03 02/14/18 17:01 02/14/18 21:15 02/15/18 07:40 Glucose (Fingerstick) 390 mg/dL (70-99) 244 mg/dL (70-99) 269 mg/dL (70-99) 227 mg/dL (70-99) Laboratory Tests Test 02/14/18 12:03 02/14/18 17:01 02/14/18 21:15 02/15/18 07:40 Glucose (Fingerstick) 390 mg/dL (70-99) 244 mg/dL (70-99) 269 mg/dL (70-99) 227 mg/dL (70-99) Medications Current Medications Sodium Chloride 1,000 ml @ 60 mls/hr [id number] IV Last administered on 08:39; Start 02/10/18 at 15:30; Stop 02/11/18 at 10:55; Status DC Allopurinol (Zyloprim) 100 mg BID PO Last administered on 02/15/18 09:41; Start 02/10/18 at 21:00 Aspirin (Children'S Aspirin) 81 mg DAILYWBKFT PO Last administered on 09:41; Start 02/10/18 at 17:00 Clopidogrel Bisulfate (Plavix) 75 mg DAILY PO Last administered on 02/15/18 09 :40; Start 02/10/18 at 17:00 Furosemide (Lasix) 80 mg BID94 PO Last administered on 02/11/18 08:38; Start 02/10/18 at 17:00; Stop 02/11/18 at 10:55; Status DC Metoclopramide HCl (Reglan) 5 mg TIDACHC PO ; Start 02/10/18 at 17:00; Status UNV Pantoprazole Sodium (PROTONIX VIAL for IV PUSH) 40 mg DAILYAC IVP ; Start at 17:00; Stop 02/10/18 at 17:00; Status DC Metoclopramide HCl (Reglan Vial) 10 mg QIDACHS IV Last administered on 12:02; Start 02/10/18 at 17:00; Stop 02/13/18 at 13:57; Status DC Pantoprazole Sodium (PROTONIX VIAL for IV PUSH) 40 mg BIDAC IVP Last administered on 02/13/18 09:02; Start 02/10/18 at 17:00; Stop 02/13/18 at 13:57 ; Status DC Timolol Maleate (Timoptic 0.25% [facility]) 1 drop DAILY OU Last administered on at 09:42; Start 02/11/18 at 09:00 Atorvastatin Calcium (Lipitor) 40 mg HS PO Last administered on 02/14/18at 21:16 ; Start 02/10/18 at 21:00 Carvedilol (Coreg) 12.5 mg BIDWMEALS PO Last administered on 02/11/18 08:38; Start 02/10/18 at 21:00; Stop 02/11/18 at 10:55; Status DC Clonidine HCl (Catapres Tts-1) 1 patch WEEKLY TD Last administered on at 08:37; Start 02/11/18 at 09:00; Stop 02/11/18 at 10:55; Status DC Acetaminophen/ Hydrocodone Bitart (Lortab 5/325) 1 tab PRN Q4HRS PRN PO MODERATE-SEVERE PAIN Last administered on 02/14/18at 21:16; Start 02/10/18 at 16: 45 Losartan Potassium (Cozaar) 50 mg DAILY PO Last administered on 02/11/18at 08:39 ; Start 02/11/18 at 09:00; Stop 02/11/18 at 10:56; Status DC Non-Formulary Medication (Pantoprazole Sodium (Protonix)) 40 mg DAILY PO ; Start 02/11/18 at 09:00; Status UNV Acetaminophen (Tylenol) 325 mg PRN Q4HRS PRN PO MILD PAIN / TEMP; Start at 17:00 Ondansetron HCl (Zofran) 4 mg Q6HRS IV Last administered on 02/13/18at 12:02; Start 02/10/18 at 18:00 Lorazepam (Ativan) 1 mg 1X ONCE IV ; Start 02/10/18 at 17:30; Stop 02/10/18 at 22:30; Status DC Insulin Human Lispro (HumaLOG) 6 units TIDWMEALS SQ Last administered on at 08:00; Start 02/10/18 at 17:30; Stop 02/11/18 at 10:56; Status DC Insulin Glargine (Lantus) 20 units QHS SQ Last administered on 02/10/18at 22:49 ; Start 02/10/18 at 21:00; Stop 02/11/18 at 10:55; Status DC Morphine Sulfate (Morphine Sulfate) 2 mg PRN Q4HRS PRN IV SEVERE PAIN Last administered on 02/12/18at 20:48; Start 02/10/18 at 17:00 Morphine Sulfate (Morphine Sulfate) 1 mg PRN Q4HRS PRN IV MODERATE PAIN; Start 02/10/18 at 17:00 Lorazepam (Ativan) 1 mg 1X ONCE IV ; Start 02/11/18 at 08:00; Stop 02/11/18 at 08:01; Status Cancel Carvedilol (Coreg) 25 mg BIDWMEALS PO Last administered on 02/15/18at 09:40; Start 02/11/18 at 17:00 Insulin Glargine (Lantus) 40 units QHS SQ Last administered on 02/11/18at 20:41 ; Start 02/11/18 at 21:00; Stop 02/12/18 at 12:29; Status DC Insulin Human Lispro (HumaLOG) 12 units TIDWMEALS SQ Last administered on at 11:51; Start 02/11/18 at 12:00; Stop 02/12/18 at 12:29; Status DC Losartan Potassium (Cozaar) 100 mg DAILY PO Last administered on 02/12/18at 08: 53; Start 02/12/18 at 09:00; Stop 02/13/18 at 08:38; Status DC Clonidine HCl (Catapres Tts-2) 1 patch WEEKLY TD Last administered on at 12:21; Start 02/11/18 at 12:00 Sodium Chloride 1,000 ml @ 40 mls/hr Q24H IV Last administered on 02/12/18at 15 :13; Start 02/11/18 at 12:00; Stop 02/13/18 at 08:39; Status DC Al Hydroxide/Mg Hydroxide (Mylanta Plus Xs) 30 ml PRN Q2HR PRN PO HEARTBURN / GAS; Start 02/11/18 at 11:00 Lactulose (Lactulose) 20 gm Q2H PO Last administered on 02/11/18at 16:56; Start 02/11/18 at 16:00; Stop 02/11/18 at 18:01; Status DC Lorazepam (Ativan) 1 mg 1X ONCE IV Last administered on 02/11/18at 13:41; Start 02/11/18 at 14:00; Stop 02/11/18 at 14:01; Status DC Insulin Glargine (Lantus) 50 units QHS SQ Last administered on 02/12/18at 20:58 ; Start 02/12/18 at 21:00; Stop 02/13/18 at 08:34; Status DC Insulin Human Lispro (HumaLOG) 18 units TIDWMEALS SQ ; Start 02/12/18 at 12:30; Stop 02/12/18 at 12:31; Status DC Gabapentin (Neurontin) 100 mg TID PO Last administered on 02/15/18 09:41; Start 02/12/18 at 14:00 Insulin Human Lispro (HumaLOG) 18 units TIDWMEALS SQ Last administered on at 17:33; Start 02/12/18 at 17:00; Stop 02/13/18 at 08:34; Status DC Lorazepam (Ativan) 1 mg 1X ONCE IV Last administered on 02/13/18at 09:08; Start 02/13/18 at 08:30; Stop 02/13/18 at 08:34; Status DC Insulin Glargine (Lantus) 40 units QHS SQ Last administered on 02/13/18 20:09 ; Start 02/13/18 at 21:00; Stop 02/14/18 at 17:23; Status DC Insulin Human Lispro (HumaLOG) 14 units TIDWMEALS SQ Last administered on at 17:14; Start 02/13/18 at 12:00; Stop 02/14/18 at 17:23; Status DC Losartan Potassium (Cozaar) 100 mg DAILY PO Last administered on 02/15/18 09: 40; Start 02/13/18 at 09:00 Pantoprazole Sodium (Protonix) 40 mg BIDAC PO Last administered on 02/15/18 09 :41; Start 02/13/18 at 16:30 Metoclopramide HCl (Reglan Oral Solution) 10 mg QIDACHS PO Last administered on 02/15/18at 09:41; Start 02/13/18 at 16:30 Ondansetron HCl (Zofran Odt) 4 mg PRN Q8HRS PRN PO NAUSEA/VOMITING; Start 02/14 at 12:30 Insulin Glargine (Lantus) 60 units QHS SQ Last administered on 02/14/18at 21:20 ; Start 02/14/18 at 21:00 Insulin Human Lispro (HumaLOG) 22 units TIDWMEALS SQ Last administered on at 09:46; Start 02/15/18 at 08:00 Amlodipine Besylate (Norvasc) 5 mg DAILY PO Last administered on 8/22/18at 09: 41; Start 02/14/18 at 18:00 Active Scripts Active Humalog (Insulin Lispro) 100 Unit/1 Ml Insuln.pen 16 Units SQ TIDAC 30 Days Lantus Solostar (Insulin Glargine,Hum.rec.anlog) 100 Unit/1 Ml Insuln.pen 40 Units SQ QHS 30 Days Amlodipine Besylate 5 Mg Tablet 5 Mg PO DAILY 30 Days Metoclopramide Hcl 10 Mg Tablet 10 Mg PO TIDACHC Children's Aspirin (Aspirin) 81 Mg Tab.chew 81 Mg PO DAILYWBKFT Reported Protonix (Pantoprazole Sodium) 20 Mg Tablet.dr 40 Mg PO DAILY Hydrocodone-Apap 5-325 (Hydrocodone Bit/Acetaminophen) 1 Each Tablet 1 Tab PO Q4HRS PRN Losartan Potassium 50 Mg Tablet 50 Mg PO DAILY Catapres-Tts 1 (Clonidine) 1 Each Patch.tdwk 1 Each TD WEEKLY Carvedilol 12.5 Mg Tablet 1 Tab PO BID Omeprazole 40 Mg Capsule. 1 Cap PO DAILY Clopidogrel (Clopidogrel Bisulfate) 75 Mg Tablet 1 Tab PO DAILY Allopurinol 100 Mg Tablet 1 Tab PO BID Furosemide 80 Mg Tablet 1 Tab PO BID Centrum Silver Tablet (Multivits-Min/Fa/Lycopene/Lut) 1 Each Tablet 1 Each PO Fish Oil ([place]-3 Fatty Acids) 300 Mg Capsule 1,000 Mg PO DAILY Atorvastatin Calcium 40 Mg Tablet 40 Mg PO HS Betimol (Timolol) 5 Ml Drops 5 Ml OP DAILY Vitals/I & O Vital Sign - Last 24 Hours 02/14/18 02/14/18 02/14/18 02/14/18 15:00 17:12 17:39 19:36 Temp 98.1 97.9 98.1 97.9 Pulse 68 68 68 69 Resp 20 18 B/P (MAP) 180/72 (108) 180/72 180/72 182/82 (115) Pulse Ox 98 98 O2 Delivery Room Air Room Air 02/14/18 02/14/18 02/15/18 02/15/18 20:00 23:03 03:36 07:00 Temp 97.7 97.6 98.2 97.7 97.6 98.2 Pulse 70 67 73 Resp 18 18 18 B/P (MAP) 164/68 (100) 183/73 (109) 154/69 (97) Pulse Ox 97 97 96 O2 Delivery Room Air Room Air Room Air Room Air 02/15/18 02/15/18 02/15/18 09:40 09:40 09:41 Pulse 73 73 73 B/P (MAP) 154/69 154/69 154/69 Intake and Output 02/14/18 02/14/18 02/15/18 15:00 23:00 07:00 Intake Total 1200 ml 300 ml Output Total 2 ml Balance 1200 ml 298 ml JONNY JOHN MD Feb 15, 2018 09:51
[2018-02-15] MEDS: HYDROcodone/APAP 5/325MG 1 TAB TABLET PO PRN (09:53)
--- NOTE | 2018-02-15 09:57 | PDOC ---
Provider Note Provider Note discharge summary dictated # [id number] JONNY JOHN MD Feb 15, 2018 09:57
[2018-02-15] MEDS ORDERED: ONDANSETRON ODT 4 MG TAB.RAPDIS. PO PRN (10:00)
[2018-02-15] MEDS ORDERED: CLON1PAT2 TD (10:03)
[2018-02-15] MEDS ORDERED: INSU100I11 SQ (10:03)
[2018-02-15] MEDS ORDERED: CARV25TA2 PO (10:03)
[2018-02-15] MEDS ORDERED: INSU100I13 SQ (10:03)
[2018-02-15] MEDS ORDERED: GABA-585 PO (10:03)
--- NOTE | 2018-02-15 10:52 | PDOC ---
SUBJECTIVE ROS No new concerns OBJECTIVE Vital Signs Vital Signs Date Time Temp Pulse Resp B/P (MAP) Pulse Ox O2 Delivery O2 Flow Rate FiO2 02/15/18 09:53 Room Air 02/15/18 09:41 73 154/69 02/15/18 07:00 98.2 18 96 98.2 I & 0 Intake and Output 02/15/18 07:00 Intake Total 1500 ml Output Total 2 ml Balance 1498 ml Intake Oral 1500 ml Output Stool Total 2 ml # Voids 5 PHYSICAL EXAM Physical Exam GENERAL APPEARANCE: NAD HEENT: OM moist NECK: supple LUNGS: Clear. CARDIAC: RRR ABDOMEN: Distended, nontender. Bowel sounds present. EXTREMITIES: Without edema. NEURO - No gross abnorma No [place] Skin No rash DIAGNOSIS/ASSESSMENT Assessment & Plan BEN - Creat stable Likely pre-renal E-Lytes and acid base stable CKD stage 3 - baseline 1.6 in the setting of diabetes mellitus and hypertension. Abdominal pain, nausea, retching, elevated lipase As per primary team Recommend fu with Nephrology for CKD post discharge COMMENT/RELEVANT DATA Meds Current Medications Medications (Trade) Dose Ordered Sig/Jeanie Start Time Stop Time Status Last Admin Dose Admin Acetaminophen (Tylenol) 325 mg PRN Q4HRS PRN 02/10/18 17:00 Acetaminophen/ Hydrocodone Bitart (Lortab 5/325) 1 tab PRN Q4HRS PRN 02/10/18 16:45 02/15/18 09:53 1 TAB Al Hydroxide/Mg Hydroxide (Mylanta Plus Xs) 30 ml PRN Q2HR PRN 02/11/18 11:00 Allopurinol (Zyloprim) 100 mg BID 02/10/18 21:00 02/15/18 09:41 100 MG Amlodipine Besylate (Norvasc) 5 mg DAILY 02/14/18 18:00 02/15/18 09:41 5 MG Aspirin (Children'S Aspirin) 81 mg DAILYWBKFT 02/10/18 17:00 02/15/18 09:41 81 MG Atorvastatin Calcium (Lipitor) 40 mg HS 02/10/18 21:00 02/14/18 21:16 40 MG Carvedilol (Coreg) 25 mg BIDWMEALS 02/11/18 17:00 02/15/18 09:40 25 MG Clonidine HCl (Catapres Tts-1) 1 patch WEEKLY 02/11/18 09:00 02/11/18 10:55 DC 02/11/18 08:37 1 PATCH Clonidine HCl (Catapres Tts-2) 1 patch WEEKLY 02/11/18 12:00 02/11/18 12:21 1 PATCH Clopidogrel Bisulfate (Plavix) 75 mg DAILY 02/10/18 17:00 02/15/18 09:40 75 MG Furosemide (Lasix) 80 mg BID94 02/10/18 17:00 02/11/18 10:55 DC 02/11/18 08:38 80 MG Gabapentin (Neurontin) 100 mg TID 02/12/18 14:00 02/15/18 09:41 100 MG Insulin Glargine (Lantus) 70 units QHS 02/15/18 21:00 Insulin Human Lispro (HumaLOG) 28 units TIDWMEALS 02/15/18 12:00 Lactulose (Lactulose) 20 gm Q2H 02/11/18 16:00 02/11/18 18:01 DC 02/11/18 16:56 20 GM Lorazepam (Ativan) 1 mg 1X ONCE 02/13/18 08:30 02/13/18 08:34 DC 02/13/18 09:08 1 MG Losartan Potassium (Cozaar) 100 mg DAILY 02/13/18 09:00 02/15/18 09:40 100 MG Metoclopramide HCl (Reglan Oral Solution) 10 mg QIDACHS 02/13/18 16:30 02/15/18 09:41 10 MG Metoclopramide HCl (Reglan Vial) 10 mg QIDACHS 02/10/18 17:00 02/13/18 13:57 DC 02/13/18 12:02 10 MG Metoclopramide HCl (Reglan) 5 mg TIDACHC 02/10/18 17:00 UNV Morphine Sulfate (Morphine Sulfate) 1 mg PRN Q4HRS PRN 02/10/18 17:00 Non-Formulary Medication (Pantoprazole Sodium (Protonix)) 40 mg DAILY 02/11/18 09:00 UNV Ondansetron HCl (Zofran Odt) 4 mg PRN Q6HRS PRN 02/15/18 10:00 Ondansetron HCl (Zofran) 4 mg Q6HRS 02/10/18 18:00 02/15/18 09:58 DC 02/13/18 12:02 4 MG Pantoprazole Sodium (PROTONIX VIAL for IV PUSH) 40 mg BIDAC 02/10/18 17:00 02/13/18 13:57 DC 02/13/18 09:02 40 MG Pantoprazole Sodium (Protonix) 40 mg BIDAC 02/13/18 16:30 02/15/18 09:41 40 MG Sodium Chloride 1,000 ml @ 40 mls/hr Q24H 02/11/18 12:00 02/13/18 08:39 DC 02/12/18 15:13 40 MLS/HR Timolol Maleate (Timoptic 0.25% [facility]) 1 drop DAILY 02/11/18 09:00 02/15/18 09:42 1 DROP Lab Laboratory Tests Test 02/14/18 12:03 02/14/18 17:01 02/14/18 21:15 02/15/18 07:40 Glucose (Fingerstick) 390 mg/dL (70-99) 244 mg/dL (70-99) 269 mg/dL (70-99) 227 mg/dL (70-99) Results All relevant outside records, renal labs, imaging studies, telemetry/EKG's were reviewed. CORINNA BOWLES MD Feb 15, 2018 10:52
[2018-02-15 11:00] VITALS: BP 158/66
--- NOTE | 2018-02-15 11:30 | DS ---
DATE OF DISCHARGE: 02/15/2018 CONSULTANTS: Include Dr. Ball, Dr. Churchill and Dr. Rojas. FINAL DIAGNOSES: 1. Epigastric abdominal pain possibly secondary to diabetic peripheral neuropathy. 2. Lumbar strain. 3. Intractable nausea and vomiting, possibly secondary to diabetic autonomic neuropathy. 4. Diabetes mellitus type 2. 5. Hypertension. 6. Morbid obesity. 7. Peripheral arterial disease. 8. Small right lung nodule. HOSPITAL COURSE: The patient is a 68-year-old -[place] male with history of diabetes mellitus type 2, hypertension, chronic kidney disease stage 3, and peripheral arterial disease, admitted from my office on 02/10/2018 with epigastric abdominal pain and intractable nausea, vomiting, decreased oral intake. He had lost about 10 pounds in about 1 week. He had a previous hospitalization for similar symptoms and had a complete workup including an EGD, which showed a healed gastroesophageal reflux disease. CAT scan of the abdomen and pelvis was unremarkable. His HIDA scan showed normal gallbladder with gallbladder ejection fraction being normal. Last colonoscopy was in 2013, had a hyperplastic polyp and his epigastric pain improved, sent home and only to recur. Seen by Dr. Churchill also. He was readmitted to the hospital for nausea, vomiting, abdominal pain, weight loss, and poor appetite. He had acute kidney injury on top of chronic kidney disease, which resolved with IV hydration. His medications were resumed. His diet was advanced from clear liquids to full liquids to a diabetic diet and is eating very well and did not have any further nausea and vomiting, treated with IV Reglan, IV Zofran and eventually switched to oral medication. His insulin was increased too as he was eating better. He will be dismissed to home on amlodipine 5 mg every day, which was started for his hypertension, Zofran 4 mg p.o. every 6 hours p.r.n. for nausea and vomiting, gabapentin 100 mg t.i.d., the allopurinol is 100 mg b.i.d., aspirin 81 mg every day, eyedrops for glaucoma, carvedilol 25 mg b.i.d., Hgbefzyn-EZG-2 one patch every week, fish oil 1 g every day, furosemide 80 mg b.i.d., Levemir insulin will be 70 units at bedtime, NovoLog will be 28 units before meals t.i.d., atorvastatin 40 mg at bedtime, losartan 100 mg every day, metoclopramide 10 mg before meals t.i.d. and at bedtime, multiple vitamin every day, [place] 5/325 one tablet t.i.d. p.r.n., Plavix 75 mg every day, and omeprazole 40 mg every day. He will make an appointment to see Dr. Chery in the office next week and he was seen by Dr. Ball for a CAT scan of the chest, which showed a small right lung nodule and he was told to repeat his CAT scan of chest in 6 months. He was seen by Dr. Rojas in consultation and felt no surgical problem in his abdomen. Dr. Churchill saw him for GI consultation. JONNY CHERY MD DR: SANJUANA/mis JOB#: [id number] / [id number]
--- NOTE | 2018-02-15 12:12 | PDOC ---
Subjective: Subjective: Feeling better, no GI complaints, going home. Objective: Vital Signs: Vital Signs Date Time Temp Pulse Resp B/P (MAP) Pulse Ox O2 Delivery O2 Flow Rate FiO2 02/15/18 11:00 98.0 69 18 158/66 (96) 97 Room Air 98.0 Labs: Laboratory Tests Test 02/14/18 17:01 02/14/18 21:15 02/15/18 07:40 Glucose (Fingerstick) 244 mg/dL 269 mg/dL 227 mg/dL PE: GEN: NAD, walking around room NEURO/PSYCH: A & O 3 A/P: Upper abd pain, n/v - resolved -- DC per primary - seems better on PPI and Reglan. RJ HAYS Feb 15, 2018 12:12
[2018-02-15] MEDS ORDERED: INSULIN GLARGINE 300 UNITS/3 ML INSULN.PEN. SQ SCH (21:00)
== END 2018-02-15 16:00 | disposition home or self-care (01) | DRG 73 ==
LOC: 6 SOUTH 14:37
PROVIDERS: ADMIT Internal Medicine; ATTEND Internal Medicine
PROC: 02HV33Z Insertion of Infusion Device into Superior Vena Cava, Percutaneous Approach (ICD-10-PCS; principal; 2018-02-11)
DX: E11.42 Type 2 diabetes mellitus with diabetic polyneuropathy (principal); N17.0 Acute kidney failure with tubular necrosis; J98.11 Atelectasis; M10.9 Gout, unspecified; N18.3 Chronic kidney disease, stage 3 (moderate); E11.22 Type 2 diabetes mellitus with diabetic chronic kidney disease; I12.9 Hypertensive chronic kidney disease with stage 1 through stage 4 chronic kidney disease, or unspecified chronic kidney disease; E11.51 Type 2 diabetes mellitus with diabetic peripheral angiopathy without gangrene; E78.5 Hyperlipidemia, unspecified; N40.0 Benign prostatic hyperplasia without lower urinary tract symptoms; E11.21 Type 2 diabetes mellitus with diabetic nephropathy; E11.43 Type 2 diabetes mellitus with diabetic autonomic (poly)neuropathy; K21.9 Gastro-esophageal reflux disease without esophagitis; H40.9 Unspecified glaucoma; E11.319 Type 2 diabetes mellitus with unspecified diabetic retinopathy without macular edema; E66.01 Morbid (severe) obesity due to excess calories; E11.65 Type 2 diabetes mellitus with hyperglycemia; K59.00 Constipation, unspecified; E86.0 Dehydration; E04.1 Nontoxic single thyroid nodule; S39.012A Strain of muscle, fascia and tendon of lower back, initial encounter; E89.0 Postprocedural hypothyroidism; D35.02 Benign neoplasm of left adrenal gland; Z98.42 Cataract extraction status, left eye; Z98.41 Cataract extraction status, right eye; Z71.6 Tobacco abuse counseling; Y93.89 Activity, other specified; Y92.89 Other specified places as the place of occurrence of the external cause; Y99.8 Other external cause status; Z68.39 Body mass index [BMI] 39.0-39.9, adult; Z88.8 Allergy status to other drugs, medicaments and biological substances; Z91.14 Patient's other noncompliance with medication regimen; Z83.3 Family history of diabetes mellitus; Z84.89 Family history of other specified conditions
CPT/HCPCS: 36415; 36569; 71045; 71046; 71250; 74176; 76536; 80048; 80053; 82150; 82962; 83690; 83735; 85025; 86301; 93005; 93976; C9113; J1815; J2060; J2270; J2405; J2765; J7030; J8597

== ENCOUNTER → 2019-04-27 | Outpatient (CLI) | payer OTHER ==
[~2019-04-27] MED LIST changes: -AMLO10TA2 PO; +AMLO10TA8 PO; +AMLO5TAB10 PO; -AMLO5TAB2 PO; +CARV12.511 PO; -CARV12.52 PO; +CARV25TA2 PO; -CLON1PAT2 TD; +CLON1PAT6 TD; +CLON1PAT9 TD; +GABA-585 PO; -HYDR-2758 PO; +HYDR-2761 PO; +HYDR-3164 PO; -HYDR-971 PO; +LOSA-73 PO; +LOSA100T14 PO; -LOSA100T6 PO; -LOSA50TA2 PO; +OMEP40CA45 PO; -OMEP40CA5 PO; +PANT20TA2 PO; -PANT40TA5 PO; +PANT40TA77 PO
--- NOTE | 2019-04-27 16:55 | RAD ---
EXAM: Left ankle, 3 views; left foot, 3 views. HISTORY: Pain and swelling. COMPARISON: None. FINDINGS: 3 views of the left foot and ankle are obtained. There is no fracture, dislocation or subluxation. There is no osteochondral lesion. The ankle mortise intact. There is fixation instrumentation within the anterior talus. There is a small plantar spur. There are vascular calcifications. There is minimal spurring involving the first metatarsal phalangeal joint. IMPRESSION: 1. No acute osseous finding. 2. Small plantar spur. 3. Minimal first metatarsophalangeal joint osteoarthritis. 4. Postoperative changes involving the talus. Electronically signed by: Nancy De Santiago MD (04/27/2019 4:52 PM) [id number]
== END | disposition home or self-care (01) ==
LOC: RAD 12:23
PROVIDERS: ATTEND Internal Medicine
DX: M19.072 Primary osteoarthritis, left ankle and foot (principal); M79.89 Other specified soft tissue disorders; G89.29 Other chronic pain
CPT/HCPCS: 73610; 73630

== ENCOUNTER → 2020-02-20 | Outpatient (CLI) | payer OTHER ==
--- NOTE | 2020-02-20 16:52 | KCIC ---
KNEE RIGHT 3V DATE: 02/20/2020 12:00 AM INDICATION: Reason: RIGHT KNEE PAIN POST FALL / Spl. Instructions: Pt fell 2 days ago, slight abrasion to knee / History: COMPARISON: None. FINDINGS: Bones: There is no evidence of acute fracture or dislocation. Joints: The joint spaces are normal. There is no joint effusion. Miscellaneous: Atherosclerotic vascular calcifications. IMPRESSION: No evidence of acute fracture. Electronically signed by: Vivek Rowland MD (02/20/2020 4:49 PM) [id number]
== END ==
LOC: KCIC 13:41
PROVIDERS: ATTEND Internal Medicine
DX: M25.561 Pain in right knee (principal)
CPT/HCPCS: 73562

== ENCOUNTER → 2020-04-24 | Outpatient (CLI) | payer OTHER ==
[~2020-04-24] MED LIST changes: +AMLO-186 PO; +AMLO-187 PO; -AMLO10TA8 PO; -AMLO5TAB10 PO
--- NOTE | 2020-04-24 14:10 | RAD ---
EXAM: Left lower extremity venous Doppler. HISTORY: Left calf pain. Patient reports currently being on blood thinners. COMPARISON: None. FINDINGS: Grayscale and Doppler analysis of the left lower extremity deep venous systems was performed with graded compression and augmentation. The common femoral, greater saphenous, superficial femoral, popliteal and calf veins were assessed. There is noncompressibility of the left posterior tibial vein distally. No detectable flow on color Doppler imaging. Otherwise, there is no evidence of deep venous thrombosis. IMPRESSION: 1. Positive DVT study for occlusive thrombus in the left posterior tibial vein. I discussed this with the patient and instructed him to contact his physician for further instructions regarding further management. I left a voice message with the referring physician's office for call back at approximately 2:00 PM on 04/24/2020. Electronically signed by: Tiera Ortiz MD (04/24/2020 2:07 PM) [id number]
== END ==
LOC: US 12:57
PROVIDERS: ATTEND Internal Medicine
DX: I82.442 Acute embolism and thrombosis of left tibial vein (principal)
CPT/HCPCS: 93971

== ENCOUNTER → 2020-09-19 | Outpatient (CLI) | payer OTHER ==
--- NOTE | 2020-09-19 17:11 | RAD ---
XR CHEST 2V History: Reason: HX SMOKER. COUGH. / Spl. Instructions: / History: Comparison: February 11, 2018 Findings: Patchy left basilar opacity. No pleural effusion. No pneumothorax. Normal heart size. Impression: 1. Patchy left basilar opacity, may represent atelectasis or developing consolidation. Recommend fol low-up. Electronically signed by: Lucien Stiles DO (09/19/2020 5:09 PM) [id number]
== END ==
LOC: RAD 13:29
PROVIDERS: ATTEND Internal Medicine
DX: R05 Cough (principal); Z87.891 Personal history of nicotine dependence
CPT/HCPCS: 71046

== ENCOUNTER → 2021-04-09 | Outpatient (CLI) | payer MEDICARE, OTHER ==
[2021-03-16 23:00] VITALS: BP 175/71
[~2021-04-09] MED LIST changes: -HYDR-2802 PO; +HYDR-2868 PO; +HYDR-3423 PO; +INSU100C4 SQ; +INSU100V13 SQ; +INSU100V35 SQ; +INSU100V8 SQ; +ISOS30TA68 PO; +METO5TAB4 PO; -OMEP40CA45 PO; +OMEP40CA7 PO
--- NOTE | 2021-04-10 16:09 | RAD ---
MR#: [id number] Date of Study: 04/09/2021 Ordering Physician: DIMITRI BRIAN, Referring Physician: DIMITRI BRIAN, Tech: Jeffrey Cano MBA, RDMS, RVT, RDCS, RTR APPROVED REPORT Patient Location : OUT-PATIENT Indications VENOUS INSUFFICIENCY Findings Grayscale imaging, spectral waveform analysis and color duplex were performed. The right greater sap henous vein measured 3.4 mm at the saphenofemoral junction and did not show any reflux. The left gre ater saphenous vein measured 8.3 mm at the saphenofemoral junction and did not show any reflux. Bila terally, the lesser saphenous vein did not show any reflux. Critical Notification Critical Value: No <Conclusion> No reflux noted in bilateral greater and lesser saphenous veins. Signed by : Dimitri Brian, Electronically Approved : 04/10/2021 16:09:18
== END ==
LOC: US 12:51
PROVIDERS: ATTEND Internal Medicine Cardiovascular Disease
DX: I87.2 Venous insufficiency (chronic) (peripheral) (principal)
CPT/HCPCS: 93970

== ENCOUNTER 2021-05-08 14:12 | Inpatient (IN) | payer OTHER, MEDICARE ==
[~2021-05-08] VITALS: Ht 179.1 cm; Wt 115.0 kg
[2021-05-08 14:40] VITALS: BP 188/82
[2021-05-08] MEDS ORDERED: ACETAMINOPHEN 325 MG TABLET. PO PRN (15:30)
[2021-05-08] MEDS ORDERED: MORPHINE SULFATE 2 MG/ML INJ. IVP PRN (15:30)
[2021-05-08] MEDS ORDERED: DEXTROSE 50% 25 GM / 50ML DISP.SYRIN. IV PRN (16:00)
[2021-05-08] MEDS: INSULIN LISPRO 300 UNITS/3 ML VIAL. SQ PRN (18:02)
[2021-05-08 18:14] LABS: BASO % 1 % (0-3); EOS # 0.1 x10^3/uL (0.0-0.7); EOS % 1 % (0-3); HEMATOCRIT 35.2 % (39.0-53.0); HEMOGLOBIN 11.7 g/dL (13.0-17.5); LYMPH # 1.6 x10^3/uL (1.0-4.8); LYMPH % 25 % (24-48); MEAN CORPUSCULAR HEMOGLOBIN 30 pg (25-35); MEAN CORPUSCULAR HGB CONC 33 g/dL (31-37); MEAN CORPUSCULAR VOLUME 90 fL (79-100); MONO # 0.6 x10^3/uL (0.0-1.1); MONO % 10 % (0-9); NEUT % 63 % (31-73); PLATELET COUNT 218 x10^3/uL (140-400); RED BLOOD COUNT 3.91 x10^6/uL (4.30-5.70); RED CELL DISTRIBUTION WIDTH 13.9 % (11.5-14.5); WHITE BLOOD COUNT 6.3 x10^3/uL (4.0-11.0)
[2021-05-08] MEDS: PANTOPRAZOLE IV PUSH 40 MG VIAL. IVP SCH (18:14)
[2021-05-08] MEDS: IV DEXTROSE 5 %-0.45 % NACL 1,000 ML IV SCH (18:15)
[2021-05-08 18:28] LABS: ALBUMIN/GLOBULIN RATIO 0.6 (1.0-1.7); CALCIUM 9.5 mg/dL (8.5-10.1); CREATININE 2.1 mg/dL (0.7-1.3); MAGNESIUM 2.2 mg/dL (1.8-2.4); POTASSIUM 4.5 mmol/L (3.5-5.1); TOTAL BILIRUBIN 0.4 mg/dL (0.2-1.0); TOTAL PROTEIN 7.9 g/dL (6.4-8.2)
[2021-05-08 19:00] VITALS: BP 141/66
--- NOTE | 2021-05-08 20:52 | EKG ---
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
[2021-05-08] MEDS: HEPARIN for SUB-Q USE 5,000 UNIT/ML VIAL. SQ SCH (21:00)
[2021-05-08 23:00] VITALS: BP 188/82
[2021-05-09 03:00] VITALS: BP 185/76
[2021-05-09] MEDS: HEPARIN for SUB-Q USE 5,000 UNIT/ML VIAL. SQ SCH ×3 (05:35→21:10)
[2021-05-09] MEDS: IV DEXTROSE 5 %-0.45 % NACL 1,000 ML IV SCH (05:37)
[2021-05-09 07:00] VITALS: BP 197/80
[2021-05-09 07:14] LABS: BASO # 0.1 x10^3/uL (0.0-0.2); BASO % 1 % (0-3); EOS # 0.1 x10^3/uL (0.0-0.7); EOS % 2 % (0-3); HEMATOCRIT 34.2 % (39.0-53.0); HEMOGLOBIN 11.4 g/dL (13.0-17.5); LYMPH # 1.7 x10^3/uL (1.0-4.8); LYMPH % 29 % (24-48); MEAN CORPUSCULAR HEMOGLOBIN 30 pg (25-35); MEAN CORPUSCULAR HGB CONC 34 g/dL (31-37); MEAN CORPUSCULAR VOLUME 90 fL (79-100); MONO # 0.6 x10^3/uL (0.0-1.1); MONO % 11 % (0-9); NEUT # 3.3 x10^3/uL (1.8-7.7); NEUT % 57 % (31-73); PLATELET COUNT 212 x10^3/uL (140-400); RED BLOOD COUNT 3.78 x10^6/uL (4.30-5.70); RED CELL DISTRIBUTION WIDTH 13.8 % (11.5-14.5); WHITE BLOOD COUNT 5.7 x10^3/uL (4.0-11.0)
[2021-05-09 07:58] LABS: CALCIUM 9.2 mg/dL (8.5-10.1); GFR 40.2; POTASSIUM 4.2 mmol/L (3.5-5.1)
--- NOTE | 2021-05-09 08:48 | RAD ---
CT ABDOMEN+PELVIS WO dated 05/08/2021 6:55 PM Indication:Reason: epigastric, abd pain, n/v Today, xray PT NEEDS VALIUM 30 MIN PRIOR TO SCAN / Spl. Instructions: / History: Comparison: CT 11/10/2020. Technique: Helical noncontrast images were performed. One or more of the following individualized dose reduction techniques were utilized for this examinat ion: 1. Automated exposure control 2. Adjustment of the mA and/or kV according to patient size 3. Use of iterative reconstruction technique Findings: Lung bases are clear. The liver and spleen are homogeneous in density and normal in configuration. Ev aluation of the solid organs is limited without IV contrast. The right kidney is again shown near the midline and more inferior than usual. There is probably a cyst posteriorly. No mass or obstruction i s seen. The left kidney shows evidence of a mass in the mid aspect as well as suggested previously. T his may be smaller, although evaluation is limited by noncontrast technique. Estimated mediolateral d imension is about 2.9 cm and AP dimension 3.1 cm. Similar measurements were given on the prior CT, al though this subjectively seems smaller today. MRI gave estimated diameter 4.6 cm. No new mass or obst ruction is seen. Small left adrenal nodule appears unchanged. The head of the pancreas is questionabl y slightly increased in size compared to prior CT. No discrete mass is seen. There appears to be a mi ldly enlarged left retroperitoneal node that probably has increased in the prior exam. This measures about 1.2 x 1.2 cm compared with about 0.9 x 0.9 cm previously. No other enlarged nodes are seen. No new abdominal mass or inflammatory process is seen. Images through the pelvis show no abnormality of the distal ureters or bladder. No pelvic or inguinal adenopathy is seen. There is no new pelvic mass or inflammatory process. A fat-containing hernia is again shown through the anterior abdominal wall. There is still some increased density in the subcuta neous fat of the left lower anterior abdominal wall, similar to the prior study. IMPRESSION: Questionable slight swelling of the pancreatic head compared to the prior exam. Correlation with panc reatic enzymes would be useful. Possible slight regression of left renal mass. Slight increased size of left retroperitoneal lymph no de. Electronically signed by: Landon Martin Jr., MD (05/09/2021 8:46 AM) [id number]
--- NOTE | 2021-05-09 08:52 | RAD ---
PROCEDURE: AP abdomen 05/09/2021 8:47 AM. REASON FOR STUDY: Reason: epigastric, abd pain, n/v Today / Spl. Instructions: / History: . COMPARISON: Chest film of 11/09/2020. FINDINGS: No free air is seen. Gas is present in a combination of large and small bowel. There is no evidence of obstruction. No abnormal masses or gas collections are seen. AP view of the chest shows fairly shallow inspiration. No infiltrate or effusion is seen. Heart size is grossly normal. There is suggestion of left upper mediastinal fullness with deviation of the trach ea to the right. This is similar to the prior exam. Prior CT showed goiter.. IMPRESSION: Nonobstructive gas pattern.. Electronically signed by: Landon Martin Jr., MD (05/09/2021 8:49 AM) [id number]
--- NOTE | 2021-05-09 08:54 | PDOC2 ---
CONSULT Date of Consult Date of Consult DATE: 05/09/21 TIME: 08:51 Reason for Consult Reason for Consult: Abdominal pain nausea vomiting Referring Physician Referring Physician: Miri Identification/Chief Complaint Chief Complaint Epigastric abdominal pain Source Source: Chart review, Patient History of Present Illness Reason for Visit: 71-year-old male was admitted directly from Dr. Chery's office with complaints of nausea vomiting abdominal pain states has been vomiting for 2 days without able to keep anything down. Currently he is sitting up in a chair appears to be quite comfortable although describes abdominal pain states he has had 3 episodes similar to this in the past. Has had no vomiting since being admitted. Patient had CT scan abdominal films have not been currently read by radiology labs showing elevated lipase amylase consistent with a pancreatitis. Patient states he has not had his gallbladder removed and does not drink alcohol Past Medical History Cardiovascular: HTN, Hyperlipidemia, Other GI: GERD, Other Renal/: Chronic renal insuff Endocrine: Diabetes Past Surgical History Past Surgical History: Cataract Removal, Other Family History Family History: No Significant Social History ALCOHOL: none Drugs: None Lives: with Family Current Medications Current Medications Current Medications Dextrose/Sodium Chloride 1,000 ml @ 100 mls/hr Q10H IV Last administered on 05/09/21at 05:37; Start 05/08/21 at 15:30 Morphine Sulfate (Morphine Sulfate) 2 mg PRN Q4HRS PRN IVP PAIN; Start 05/08/21 at 15:30 Clonidine HCl (Catapres Tts-2) 1 patch WEEKLY TD ; Start 05/09/21 at 09:00 Acetaminophen (Tylenol) 650 mg PRN Q6HRS PRN PO MILD PAIN / TEMP > 100.3'F; Start 05/08/21 at 15:30 Pantoprazole Sodium (PROTONIX VIAL for IV PUSH) 40 mg DAILYAC IVP Last administered on 05/08/21at 18:14; Start 05/08/21 at 16:00 Heparin Sodium (Porcine) (Heparin Sodium) 5,000 unit Q8HRS SQ Last administered on 05/09/21at 05:35; Start 05/08/21 at 22:00 Lorazepam (Ativan Inj) 1 mg OC PROC PRN IVP [address] Last administered on 05/08/21at 18:15; Start 05/08/21 at 16:00; Stop 05/09/21 at 23:59 Dextrose (Dextrose 50%-Water Syringe) 12.5 gm PRN Q15MIN PRN IV SEE COMMENTS; Start 05/08/21 at 16:00 Insulin Human Lispro (HumaLOG) 0-12 UNITS PRN Q6HRS PRN SQ SEE COMMENTS Last administered on 05/08/21at 18:02; Start 05/08/21 at 16:15 Active Scripts Active Isosorbide Mononitrate Er (Isosorbide Mononitrate) 30 Mg Tab.er.24h 60 Mg PO DAILY Hydralazine Hcl 50 Mg Tablet 50 Mg PO TID Amlodipine Besylate 10 Mg Tablet 10 Mg PO DAILY Clonidine Tts-2 (Clonidine) 1 Each Patch.tdwk 2 Patch TD SA Carvedilol 25 Mg Tablet 1 Tab PO BID 30 Days Metoclopramide Hcl 10 Mg Tablet 10 Mg PO TIDACHC Children's Aspirin (Aspirin) 81 Mg Tab.chew 81 Mg PO DAILYWBKFT Reported Metolazone 5 Mg Tablet 1 Tab PO TWICE WEEKLY Levemir (Insulin Detemir) 100 Unit/1 Ml Vial 70 Unit SQ HS Novolog (Insulin Aspart) 100 Unit/1 Ml Cartridge 24 Unit SQ BIDAC Gabapentin (Gabapentin) 100 Mg Capsule 200 Mg PO TID Hydrocodone-Apap 5-325 (Hydrocodone Bit/Acetaminophen) 1 Each Tablet 1 Tab PO Q4HRS PRN Omeprazole 40 Mg Capsule.dr 1 Cap PO DAILY Clopidogrel (Clopidogrel Bisulfate) 75 Mg Tablet 1 Tab PO DAILY Allopurinol 100 Mg Tablet 1 Tab PO BID Furosemide 80 Mg Tablet 1 Tab PO BID Centrum Silver Tablet (Multivits-Min/Fa/Lycopene/Lut) 1 Each Tablet 1 Each PO Fish Oil ([place]-3 Fatty Acids) 300 Mg Capsule 1,000 Mg PO DAILY Atorvastatin Calcium 40 Mg Tablet 40 Mg PO HS Allergies Allergies: Coded Allergies: lisinopril (Verified Allergy, Intermediate, 01/27/18) pioglitazone (Verified Allergy, Intermediate, 01/27/18) ibuprofen (Verified Adverse Reaction, Intermediate, RENAL DYSFUNCTION, 11/09/20) kidney dysfunction ROS Gastrointestinal: Yes Nausea, Yes Vomiting, Yes Abdominal Pain Physical Exam General: Alert, Oriented X3, Cooperative, No acute distress HEENT: Atraumatic, EOMI Lungs: Clear to auscultation, Normal air movement Heart: Regular rate, No murmurs Abdomen: Normal bowel sounds, Soft, Other (Tender to palpation epigastrium no peritoneal signs) Extremities: No edema Skin: No significant lesion Neuro: Normal speech Psych/Mental Status: Mental status NL Vitals VITALS Vital Signs Date Time Temp Pulse Resp B/P (MAP) Pulse Ox O2 Delivery O2 Flow Rate FiO2 05/09/21 03:00 98.5 68 18 185/76 (112) 95 Room Air 98.5 Labs Labs Laboratory Tests Test 05/08/21 16:53 05/08/21 17:45 05/08/21 20:35 05/09/21 06:25 Glucose (Fingerstick) 405 mg/dL (70-99) 296 mg/dL (70-99) White Blood Count 6.3 x10^3/uL (4.0-11.0) 5.7 x10^3/uL (4.0-11.0) Red Blood Count 3.91 x10^6/uL (4.30-5.70) 3.78 x10^6/uL (4.30-5.70) Hemoglobin 11.7 g/dL (13.0-17.5) 11.4 g/dL (13.0-17.5) Hematocrit 35.2 % (39.0-53.0) 34.2 % (39.0-53.0) Mean Corpuscular Volume 90 fL (79-100) 90 fL (79-100) Mean Corpuscular Hemoglobin 30 pg (25-35) 30 pg (25-35) Mean Corpuscular Hemoglobin Concent 33 g/dL (31-37) 34 g/dL (31-37) Red Cell Distribution Width 13.9 % (11.5-14.5) 13.8 % (11.5-14.5) Platelet Count 218 x10^3/uL (140-400) 212 x10^3/uL (140-400) Neutrophils (%) (Auto) 63 % (31-73) 57 % (31-73) Lymphocytes (%) (Auto) 25 % (24-48) 29 % (24-48) Monocytes (%) (Auto) 10 % (0-9) 11 % (0-9) Eosinophils (%) (Auto) 1 % (0-3) 2 % (0-3) Basophils (%) (Auto) 1 % (0-3) 1 % (0-3) Neutrophils # (Auto) 4.0 x10^3/uL (1.8-7.7) 3.3 x10^3/uL (1.8-7.7) Lymphocytes # (Auto) 1.6 x10^3/uL (1.0-4.8) 1.7 x10^3/uL (1.0-4.8) Monocytes # (Auto) 0.6 x10^3/uL (0.0-1.1) 0.6 x10^3/uL (0.0-1.1) Eosinophils # (Auto) 0.1 x10^3/uL (0.0-0.7) 0.1 x10^3/uL (0.0-0.7) Basophils # (Auto) 0.0 x10^3/uL (0.0-0.2) 0.1 x10^3/uL (0.0-0.2) Sodium Level 136 mmol/L (136-145) 141 mmol/L (136-145) Potassium Level 4.5 mmol/L (3.5-5.1) 4.2 mmol/L (3.5-5.1) Chloride Level 101 mmol/L (98-107) 103 mmol/L (98-107) Carbon Dioxide Level 27 mmol/L (21-32) 28 mmol/L (21-32) Anion Gap 8 (6-14) 10 (6-14) Blood Urea Nitrogen 51 mg/dL (8-26) 44 mg/dL (8-26) Creatinine 2.1 mg/dL (0.7-1.3) 2.0 mg/dL (0.7-1.3) Estimated GFR (Cockcroft-Gault) 38.0 40.2 BUN/Creatinine Ratio 24 (6-20) Glucose Level 407 mg/dL (70-99) 283 mg/dL (70-99) Calcium Level 9.5 mg/dL (8.5-10.1) 9.2 mg/dL (8.5-10.1) Magnesium Level 2.2 mg/dL (1.8-2.4) Total Bilirubin 0.4 mg/dL (0.2-1.0) Aspartate Amino Transf (AST/SGOT) 17 U/L (15-37) Alanine Aminotransferase (ALT/SGPT) 20 U/L (16-63) Alkaline Phosphatase 94 U/L (46-116) Total Protein 7.9 g/dL (6.4-8.2) Albumin 3.0 g/dL (3.4-5.0) Albumin/Globulin Ratio 0.6 (1.0-1.7) Amylase Level 174 U/L (25-115) Lipase 1815 U/L (73-393) Test 05/09/21 07:20 Glucose (Fingerstick) 305 mg/dL (70-99) Laboratory Tests Test 05/08/21 16:53 05/08/21 17:45 05/08/21 20:35 05/09/21 06:25 Glucose (Fingerstick) 405 mg/dL (70-99) 296 mg/dL (70-99) White Blood Count 6.3 x10^3/uL (4.0-11.0) 5.7 x10^3/uL (4.0-11.0) Red Blood Count 3.91 x10^6/uL (4.30-5.70) 3.78 x10^6/uL (4.30-5.70) Hemoglobin 11.7 g/dL (13.0-17.5) 11.4 g/dL (13.0-17.5) Hematocrit 35.2 % (39.0-53.0) 34.2 % (39.0-53.0) Mean Corpuscular Volume 90 fL (79-100) 90 fL (79-100) Mean Corpuscular Hemoglobin 30 pg (25-35) 30 pg (25-35) Mean Corpuscular Hemoglobin Concent 33 g/dL (31-37) 34 g/dL (31-37) Red Cell Distribution Width 13.9 % (11.5-14.5) 13.8 % (11.5-14.5) Platelet Count 218 x10^3/uL (140-400) 212 x10^3/uL (140-400) Neutrophils (%) (Auto) 63 % (31-73) 57 % (31-73) Lymphocytes (%) (Auto) 25 % (24-48) 29 % (24-48) Monocytes (%) (Auto) 10 % (0-9) 11 % (0-9) Eosinophils (%) (Auto) 1 % (0-3) 2 % (0-3) Basophils (%) (Auto) 1 % (0-3) 1 % (0-3) Neutrophils # (Auto) 4.0 x10^3/uL (1.8-7.7) 3.3 x10^3/uL (1.8-7.7) Lymphocytes # (Auto) 1.6 x10^3/uL (1.0-4.8) 1.7 x10^3/uL (1.0-4.8) Monocytes # (Auto) 0.6 x10^3/uL (0.0-1.1) 0.6 x10^3/uL (0.0-1.1) Eosinophils # (Auto) 0.1 x10^3/uL (0.0-0.7) 0.1 x10^3/uL (0.0-0.7) Basophils # (Auto) 0.0 x10^3/uL (0.0-0.2) 0.1 x10^3/uL (0.0-0.2) Sodium Level 136 mmol/L (136-145) 141 mmol/L (136-145) Potassium Level 4.5 mmol/L (3.5-5.1) 4.2 mmol/L (3.5-5.1) Chloride Level 101 mmol/L (98-107) 103 mmol/L (98-107) Carbon Dioxide Level 27 mmol/L (21-32) 28 mmol/L (21-32) Anion Gap 8 (6-14) 10 (6-14) Blood Urea Nitrogen 51 mg/dL (8-26) 44 mg/dL (8-26) Creatinine 2.1 mg/dL (0.7-1.3) 2.0 mg/dL (0.7-1.3) Estimated GFR (Cockcroft-Gault) 38.0 40.2 BUN/Creatinine Ratio 24 (6-20) Glucose Level 407 mg/dL (70-99) 283 mg/dL (70-99) Calcium Level 9.5 mg/dL (8.5-10.1) 9.2 mg/dL (8.5-10.1) Magnesium Level 2.2 mg/dL (1.8-2.4) Total Bilirubin 0.4 mg/dL (0.2-1.0) Aspartate Amino Transf (AST/SGOT) 17 U/L (15-37) Alanine Aminotransferase (ALT/SGPT) 20 U/L (16-63) Alkaline Phosphatase 94 U/L (46-116) Total Protein 7.9 g/dL (6.4-8.2) Albumin 3.0 g/dL (3.4-5.0) Albumin/Globulin Ratio 0.6 (1.0-1.7) Amylase Level 174 U/L (25-115) Lipase 1815 U/L (73-393) Test 05/09/21 07:20 Glucose (Fingerstick) 305 mg/dL (70-99) Images Images CT scan of the abdomen not yet read by radiology gallbladder intact I did not appreciate any stones or pericholecystic inflammation awaiting final results Assessment/Plan Assessment/Plan Pancreatitis recommend bowel rest. Follow-up on CT result may need ultrasound of the gallbladder to rule out stones. SEAN CORTEZ MD May 09, 2021 08:54
[2021-05-09] MEDS ORDERED: cloNIDine TTS-2 1 PATCH PATCH TD SCH ×2 (09:00→11:00)
--- NOTE | 2021-05-09 09:07 | PDOC2 ---
CONSULT Date of Consult Date of Consult DATE: 05/09/21 TIME: 09:05 Reason for Consult Reason for Consult: N/V/abd pain/poorly controlled DM Past Medical History Cardiovascular: HTN, Hyperlipidemia, Other GI: GERD, Other Renal/: Chronic renal insuff Endocrine: Diabetes Past Surgical History Past Surgical History: Cataract Removal, Other Family History Family History: No Significant Social History ALCOHOL: none Drugs: None Lives: with Family Current Medications Current Medications Current Medications Dextrose/Sodium Chloride 1,000 ml @ 100 mls/hr Q10H IV Last administered on 05/09/21at 05:37; Start 05/08/21 at 15:30 Morphine Sulfate (Morphine Sulfate) 2 mg PRN Q4HRS PRN IVP PAIN; Start 05/08/21 at 15:30 Clonidine HCl (Catapres Tts-2) 1 patch WEEKLY TD ; Start 05/09/21 at 09:00 Acetaminophen (Tylenol) 650 mg PRN Q6HRS PRN PO MILD PAIN / TEMP > 100.3'F; Start 05/08/21 at 15:30 Pantoprazole Sodium (PROTONIX VIAL for IV PUSH) 40 mg DAILYAC IVP Last administered on 05/08/21at 18:14; Start 05/08/21 at 16:00 Heparin Sodium (Porcine) (Heparin Sodium) 5,000 unit Q8HRS SQ Last administered on 05/09/21at 05:35; Start 05/08/21 at 22:00 Lorazepam (Ativan Inj) 1 mg OC PROC PRN IVP [address] Last administered on 05/08/21at 18:15; Start 05/08/21 at 16:00; Stop 05/09/21 at 23:59 Dextrose (Dextrose 50%-Water Syringe) 12.5 gm PRN Q15MIN PRN IV SEE COMMENTS; Start 05/08/21 at 16:00 Insulin Human Lispro (HumaLOG) 0-12 UNITS PRN Q6HRS PRN SQ SEE COMMENTS Last administered on 05/08/21at 18:02; Start 05/08/21 at 16:15 Active Scripts Active Isosorbide Mononitrate Er (Isosorbide Mononitrate) 30 Mg Tab.er.24h 60 Mg PO DAILY Hydralazine Hcl 50 Mg Tablet 50 Mg PO TID Amlodipine Besylate 10 Mg Tablet 10 Mg PO DAILY Clonidine Tts-2 (Clonidine) 1 Each Patch.tdwk 2 Patch TD SA Carvedilol 25 Mg Tablet 1 Tab PO BID 30 Days Metoclopramide Hcl 10 Mg Tablet 10 Mg PO TIDACHC Children's Aspirin (Aspirin) 81 Mg Tab.chew 81 Mg PO DAILYWBKFT Reported Metolazone 5 Mg Tablet 1 Tab PO TWICE WEEKLY Levemir (Insulin Detemir) 100 Unit/1 Ml Vial 70 Unit SQ HS Novolog (Insulin Aspart) 100 Unit/1 Ml Cartridge 24 Unit SQ BIDAC Gabapentin (Gabapentin) 100 Mg Capsule 200 Mg PO TID Hydrocodone-Apap 5-325 (Hydrocodone Bit/Acetaminophen) 1 Each Tablet 1 Tab PO Q4HRS PRN Omeprazole 40 Mg Capsule.dr 1 Cap PO DAILY Clopidogrel (Clopidogrel Bisulfate) 75 Mg Tablet 1 Tab PO DAILY Allopurinol 100 Mg Tablet 1 Tab PO BID Furosemide 80 Mg Tablet 1 Tab PO BID Centrum Silver Tablet (Multivits-Min/Fa/Lycopene/Lut) 1 Each Tablet 1 Each PO Fish Oil ([place]-3 Fatty Acids) 300 Mg Capsule 1,000 Mg PO DAILY Atorvastatin Calcium 40 Mg Tablet 40 Mg PO HS Allergies Allergies: Coded Allergies: lisinopril (Verified Allergy, Intermediate, 01/27/18) pioglitazone (Verified Allergy, Intermediate, 01/27/18) ibuprofen (Verified Adverse Reaction, Intermediate, RENAL DYSFUNCTION, 11/09/20) kidney dysfunction Vitals VITALS Vital Signs Date Time Temp Pulse Resp B/P (MAP) Pulse Ox O2 Delivery O2 Flow Rate FiO2 05/09/21 03:00 98.5 68 18 185/76 (112) 95 Room Air 98.5 Labs Labs Laboratory Tests Test 05/08/21 16:53 05/08/21 17:45 05/08/21 20:35 05/09/21 06:25 Glucose (Fingerstick) 405 mg/dL (70-99) 296 mg/dL (70-99) White Blood Count 6.3 x10^3/uL (4.0-11.0) 5.7 x10^3/uL (4.0-11.0) Red Blood Count 3.91 x10^6/uL (4.30-5.70) 3.78 x10^6/uL (4.30-5.70) Hemoglobin 11.7 g/dL (13.0-17.5) 11.4 g/dL (13.0-17.5) Hematocrit 35.2 % (39.0-53.0) 34.2 % (39.0-53.0) Mean Corpuscular Volume 90 fL (79-100) 90 fL (79-100) Mean Corpuscular Hemoglobin 30 pg (25-35) 30 pg (25-35) Mean Corpuscular Hemoglobin Concent 33 g/dL (31-37) 34 g/dL (31-37) Red Cell Distribution Width 13.9 % (11.5-14.5) 13.8 % (11.5-14.5) Platelet Count 218 x10^3/uL (140-400) 212 x10^3/uL (140-400) Neutrophils (%) (Auto) 63 % (31-73) 57 % (31-73) Lymphocytes (%) (Auto) 25 % (24-48) 29 % (24-48) Monocytes (%) (Auto) 10 % (0-9) 11 % (0-9) Eosinophils (%) (Auto) 1 % (0-3) 2 % (0-3) Basophils (%) (Auto) 1 % (0-3) 1 % (0-3) Neutrophils # (Auto) 4.0 x10^3/uL (1.8-7.7) 3.3 x10^3/uL (1.8-7.7) Lymphocytes # (Auto) 1.6 x10^3/uL (1.0-4.8) 1.7 x10^3/uL (1.0-4.8) Monocytes # (Auto) 0.6 x10^3/uL (0.0-1.1) 0.6 x10^3/uL (0.0-1.1) Eosinophils # (Auto) 0.1 x10^3/uL (0.0-0.7) 0.1 x10^3/uL (0.0-0.7) Basophils # (Auto) 0.0 x10^3/uL (0.0-0.2) 0.1 x10^3/uL (0.0-0.2) Sodium Level 136 mmol/L (136-145) 141 mmol/L (136-145) Potassium Level 4.5 mmol/L (3.5-5.1) 4.2 mmol/L (3.5-5.1) Chloride Level 101 mmol/L (98-107) 103 mmol/L (98-107) Carbon Dioxide Level 27 mmol/L (21-32) 28 mmol/L (21-32) Anion Gap 8 (6-14) 10 (6-14) Blood Urea Nitrogen 51 mg/dL (8-26) 44 mg/dL (8-26) Creatinine 2.1 mg/dL (0.7-1.3) 2.0 mg/dL (0.7-1.3) Estimated GFR (Cockcroft-Gault) 38.0 40.2 BUN/Creatinine Ratio 24 (6-20) Glucose Level 407 mg/dL (70-99) 283 mg/dL (70-99) Calcium Level 9.5 mg/dL (8.5-10.1) 9.2 mg/dL (8.5-10.1) Magnesium Level 2.2 mg/dL (1.8-2.4) Total Bilirubin 0.4 mg/dL (0.2-1.0) Aspartate Amino Transf (AST/SGOT) 17 U/L (15-37) Alanine Aminotransferase (ALT/SGPT) 20 U/L (16-63) Alkaline Phosphatase 94 U/L (46-116) Total Protein 7.9 g/dL (6.4-8.2) Albumin 3.0 g/dL (3.4-5.0) Albumin/Globulin Ratio 0.6 (1.0-1.7) Amylase Level 174 U/L (25-115) Lipase 1815 U/L (73-393) Test 05/09/21 07:20 Glucose (Fingerstick) 305 mg/dL (70-99) Laboratory Tests Test 05/08/21 16:53 05/08/21 17:45 05/08/21 20:35 05/09/21 06:25 Glucose (Fingerstick) 405 mg/dL (70-99) 296 mg/dL (70-99) White Blood Count 6.3 x10^3/uL (4.0-11.0) 5.7 x10^3/uL (4.0-11.0) Red Blood Count 3.91 x10^6/uL (4.30-5.70) 3.78 x10^6/uL (4.30-5.70) Hemoglobin 11.7 g/dL (13.0-17.5) 11.4 g/dL (13.0-17.5) Hematocrit 35.2 % (39.0-53.0) 34.2 % (39.0-53.0) Mean Corpuscular Volume 90 fL (79-100) 90 fL (79-100) Mean Corpuscular Hemoglobin 30 pg (25-35) 30 pg (25-35) Mean Corpuscular Hemoglobin Concent 33 g/dL (31-37) 34 g/dL (31-37) Red Cell Distribution Width 13.9 % (11.5-14.5) 13.8 % (11.5-14.5) Platelet Count 218 x10^3/uL (140-400) 212 x10^3/uL (140-400) Neutrophils (%) (Auto) 63 % (31-73) 57 % (31-73) Lymphocytes (%) (Auto) 25 % (24-48) 29 % (24-48) Monocytes (%) (Auto) 10 % (0-9) 11 % (0-9) Eosinophils (%) (Auto) 1 % (0-3) 2 % (0-3) Basophils (%) (Auto) 1 % (0-3) 1 % (0-3) Neutrophils # (Auto) 4.0 x10^3/uL (1.8-7.7) 3.3 x10^3/uL (1.8-7.7) Lymphocytes # (Auto) 1.6 x10^3/uL (1.0-4.8) 1.7 x10^3/uL (1.0-4.8) Monocytes # (Auto) 0.6 x10^3/uL (0.0-1.1) 0.6 x10^3/uL (0.0-1.1) Eosinophils # (Auto) 0.1 x10^3/uL (0.0-0.7) 0.1 x10^3/uL (0.0-0.7) Basophils # (Auto) 0.0 x10^3/uL (0.0-0.2) 0.1 x10^3/uL (0.0-0.2) Sodium Level 136 mmol/L (136-145) 141 mmol/L (136-145) Potassium Level 4.5 mmol/L (3.5-5.1) 4.2 mmol/L (3.5-5.1) Chloride Level 101 mmol/L (98-107) 103 mmol/L (98-107) Carbon Dioxide Level 27 mmol/L (21-32) 28 mmol/L (21-32) Anion Gap 8 (6-14) 10 (6-14) Blood Urea Nitrogen 51 mg/dL (8-26) 44 mg/dL (8-26) Creatinine 2.1 mg/dL (0.7-1.3) 2.0 mg/dL (0.7-1.3) Estimated GFR (Cockcroft-Gault) 38.0 40.2 BUN/Creatinine Ratio 24 (6-20) Glucose Level 407 mg/dL (70-99) 283 mg/dL (70-99) Calcium Level 9.5 mg/dL (8.5-10.1) 9.2 mg/dL (8.5-10.1) Magnesium Level 2.2 mg/dL (1.8-2.4) Total Bilirubin 0.4 mg/dL (0.2-1.0) Aspartate Amino Transf (AST/SGOT) 17 U/L (15-37) Alanine Aminotransferase (ALT/SGPT) 20 U/L (16-63) Alkaline Phosphatase 94 U/L (46-116) Total Protein 7.9 g/dL (6.4-8.2) Albumin 3.0 g/dL (3.4-5.0) Albumin/Globulin Ratio 0.6 (1.0-1.7) Amylase Level 174 U/L (25-115) Lipase 1815 U/L (73-393) Test 05/09/21 07:20 Glucose (Fingerstick) 305 mg/dL (70-99) Assessment/Plan Assessment/Plan Abd pain- with long standing DM, gastroparesis and/or chronic cholecystitis lead differential Plan medical therapy for DM US liver/GB Full note dictated TIFFANY YOUNGER MD May 09, 2021 09:07
[2021-05-09] MEDS: PANTOPRAZOLE IV PUSH 40 MG VIAL. IVP SCH (09:52)
[2021-05-09] MEDS: INSULIN LISPRO 300 UNITS/3 ML VIAL. SQ PRN (09:55)
[2021-05-09] MEDS ORDERED: ONDANSETRON PF 4 MG/2 ML VIAL. IVP PRN ×2 (10:00→10:15)
[2021-05-09] MEDS ORDERED: HYDROcodone/APAP 5/325MG 1 TAB TABLET PO PRN (10:00)
--- NOTE | 2021-05-09 10:32 | PDOC ---
Provider Note Date of Service: DATE: 05/09/21 TIME: 10:31 Provider Note history and physical dictated # [id number] Justifications for Admission Other Justification JONNY JOHN MD May 09, 2021 10:32
[2021-05-09 11:00] VITALS: BP 187/80
[2021-05-09] MEDS ORDERED: INSULIN LISPRO 300 UNITS/3 ML VIAL. SQ PRN (12:00)
[2021-05-09] MEDS: AA 4.25 %/CALCIUM/LYTES/D5W 1,000 ML IV SCH ×2 (12:19→20:54)
--- NOTE | 2021-05-09 12:20 | PDOC2 ---
CONSULT Date of Consult Date of Consult DATE: 05/09/21 TIME: 12:15 Reason for Consult Reason for Consult: epigastric abdominal pain, nausea vomiting Referring Physician Referring Physician: Miri Identification/Chief Complaint Chief Complaint Nausea vomiting abdominal pain Source Source: Chart review, Patient History of Present Illness Reason for Visit: Manjit is a 71-year-old -[place] gentleman followed by Dr. Thomas in our practice. He is known to have CKD stage III with a baseline creatinine of 1.73 and a GFR of 46 on his last visit with Dr. Thomas in December 2020. He is also known to have poorly controlled diabetes. Presented to the hospital with nausea and vomiting. This was accompanied by abdominal pain. He now presents with a creatinine of 2.0 -2.2. We were asked to see him for epigastric abdominal pain, nausea vomiting by Dr. Chery. It appears that general surgery and GI has also been consulted for similar issues And will defer management of GI issues to their respective specialist. While he has been here urine output is not well documented. He denies any fevers chills at this time. Patient is known to have a history of a renal mass which is followed via MRI by her urologist that showed [facility]. Past Medical History Cardiovascular: HTN, Hyperlipidemia, Other GI: GERD, Other Renal/: Chronic renal insuff Endocrine: Diabetes, Other (Renal tumor) Past Surgical History Past Surgical History: Cataract Removal, Other Family History Family History: No Significant Social History ALCOHOL: none Drugs: None Lives: with Family Current Medications Current Medications Current Medications Dextrose/Sodium Chloride 1,000 ml @ 100 mls/hr Q10H IV Last administered on 05/09/21at 05:37; Start 05/08/21 at 15:30; Stop 05/09/21 at 10:21; Status DC Morphine Sulfate (Morphine Sulfate) 2 mg PRN Q4HRS PRN IVP PAIN; Start 05/08/21 at 15:30 Clonidine HCl (Catapres Tts-2) 1 patch WEEKLY TD Last administered on 05/09/21at 09:52; Start 05/09/21 at 09:00; Stop 05/09/21 at 10:21; Status DC Acetaminophen (Tylenol) 650 mg PRN Q6HRS PRN PO MILD PAIN / TEMP > 100.3'F; Start 05/08/21 at 15:30 Pantoprazole Sodium (PROTONIX VIAL for IV PUSH) 40 mg DAILYAC IVP Last administered on 05/09/21at 09:52; Start 05/08/21 at 16:00; Stop 05/09/21 at 10:21; Status DC Heparin Sodium (Porcine) (Heparin Sodium) 5,000 unit Q8HRS SQ Last administered on 05/09/21at 05:35; Start 05/08/21 at 22:00 Lorazepam (Ativan Inj) 1 mg OC PROC PRN IVP [address] Last administered on 05/08/21at 18:15; Start 05/08/21 at 16:00; Stop 05/09/21 at 23:59 Dextrose (Dextrose 50%-Water Syringe) 12.5 gm PRN Q15MIN PRN IV SEE COMMENTS; Start 05/08/21 at 16:00 Insulin Human Lispro (HumaLOG) 0-12 UNITS PRN Q6HRS PRN SQ SEE COMMENTS Last administered on 05/09/21at 09:55; Start 05/08/21 at 16:15; Stop 05/09/21 at 10:21; Status DC Ondansetron HCl (Zofran) 4 mg PRN Q6HRS PRN IVP NAUSEA/VOMITING; Start 05/09/21 at 10:15 Clonidine HCl (Catapres Tts-2) 2 patch WEEKLY TD ; Start 05/09/21 at 11:00 Insulin Human Lispro (HumaLOG) 0-12 UNITS BG 300-399... PRN Q6HRS PRN SQ SEE COMMENTS; Start 05/09/21 at 12:00 Amino Acids/ Electrolytes/ Dextrose 1,000 ml @ 80 mls/hr [id number] IV ; Start 05/09/21 at 10:00 Furosemide (Lasix) 80 mg BID94 PO ; Start 05/09/21 at 16:00 Atorvastatin Calcium (Lipitor) 40 mg QHS PO ; Start 05/09/21 at 21:00 Metoclopramide HCl (Reglan) 5 mg QID PO ; Start 05/09/21 at 13:00 Insulin Glargine (Lantus Syringe) 30 unit QHS SQ ; Start 05/09/21 at 21:00 Carvedilol (Coreg) 25 mg BIDWMEALS PO ; Start 05/09/21 at 11:00 Metolazone (Zaroxolyn) 5 mg QMTH@0900 PO ; Start 05/11/21 at 09:00 Ondansetron HCl (Zofran) 4 mg PRN Q6HRS PRN IVP NAUSEA/VOMITING; Start 05/09/21 at 10:00 Allopurinol (Zyloprim) 100 mg DAILY PO ; Start 05/09/21 at 11:00 Gabapentin (Neurontin) 100 mg TID PO ; Start 05/09/21 at 14:00 Pantoprazole Sodium (Protonix) 40 mg DAILYAC PO ; Start 05/09/21 at 11:30 Acetaminophen/ Hydrocodone Bitart (Lortab 5/325) 1 tab PRN Q4HRS PRN PO PAIN; Start 05/09/21 at 10:00 Amlodipine Besylate (Norvasc) 10 mg DAILY PO ; Start 05/09/21 at 11:00 Multivitamins (Thera M Plus) 1 tab DAILY PO ; Start 05/09/21 at 11:00 Clopidogrel Bisulfate (Plavix) 75 mg DAILYWBKFT PO ; Start 05/09/21 at 11:00 Hydralazine HCl (Apresoline) 50 mg TID PO ; Start 05/09/21 at 11:00 Isosorbide Mononitrate (Imdur) 60 mg DAILY PO ; Start 05/09/21 at 11:00 Aspirin (Elena Aspirin) 81 mg DAILY PO ; Start 05/09/21 at 11:00 Active Scripts Active Isosorbide Mononitrate Er (Isosorbide Mononitrate) 30 Mg Tab.er.24h 60 Mg PO DAILY Hydralazine Hcl 50 Mg Tablet 50 Mg PO TID Amlodipine Besylate 10 Mg Tablet 10 Mg PO DAILY Clonidine Tts-2 (Clonidine) 1 Each Patch.tdwk 2 Patch TD SA Carvedilol 25 Mg Tablet 1 Tab PO BID 30 Days Metoclopramide Hcl 10 Mg Tablet 10 Mg PO TIDACHC Children's Aspirin (Aspirin) 81 Mg Tab.chew 81 Mg PO DAILYWBKFT Reported Metolazone 5 Mg Tablet 1 Tab PO TWICE WEEKLY Levemir (Insulin Detemir) 100 Unit/1 Ml Vial 70 Unit SQ HS Novolog (Insulin Aspart) 100 Unit/1 Ml Cartridge 24 Unit SQ BIDAC Gabapentin (Gabapentin) 100 Mg Capsule 200 Mg PO TID Hydrocodone-Apap 5-325 (Hydrocodone Bit/Acetaminophen) 1 Each Tablet 1 Tab PO Q4HRS PRN Omeprazole 40 Mg Capsule. 1 Cap PO DAILY Clopidogrel (Clopidogrel Bisulfate) 75 Mg Tablet 1 Tab PO DAILY Allopurinol 100 Mg Tablet 1 Tab PO BID Furosemide 80 Mg Tablet 1 Tab PO BID Centrum Silver Tablet (Multivits-Min/Fa/Lycopene/Lut) 1 Each Tablet 1 Each PO Fish Oil (Burtrum-3 Fatty Acids) 300 Mg Capsule 1,000 Mg PO DAILY Atorvastatin Calcium 40 Mg Tablet 40 Mg PO HS Allergies Allergies: Coded Allergies: lisinopril (Verified Allergy, Intermediate, 01/27/18) pioglitazone (Verified Allergy, Intermediate, 01/27/18) ibuprofen (Verified Adverse Reaction, Intermediate, RENAL DYSFUNCTION, 11/09/20) kidney dysfunction ROS Review of System 14 point review of systems per HPI otherwise negative Physical Exam Physical Exam General Appearance: Awake Alert Oriented x 2-3 In no Distress, obese gentleman with flat affect Eyes: VIsion Unchanged Conjunctiva Normal EN: No EN Drainage Mucous Memb. moist Neck: no JVD no JVP Supple no Thyromegaly, somewhat short and thick neck CVS: S1 S2 no Murmur No Gallop No Rub Tr Edema Resp: no Rales no Rhonchi no Acc. Muscle use GI: BAS +ve NO Bruit Non Tender Non Distended, somewhat rotund and protuberant abdomen : no CVA tenderness; no Suprapubic Tenderness SKIN: No obvious visible rashes Breast Exam deferred Mu.Sk: Adequate ROM no obvious muscle Atrophy Heme: Unable to palpate Obvious LAD or palpable splenomegaly NEURO: Good Strength and Tone Cranial Nerves II - XII grossly intact Psych: ? Depressed/flat affect, no active hallucination Vital Signs Vital Signs Date Time Temp Pulse Resp B/P (MAP) Pulse Ox O2 Delivery O2 Flow Rate FiO2 05/09/21 11:00 98.0 78 18 187/80 (115) 95 98.0 05/09/21 03:00 Room Air Assessment & Plan CKD 3B: Creatinine close to previous baseline 1.7 in December. Current creatinine of 2-2.2 may be a reflection of poorly controlled diabetes. Element of BEN in the setting of possible pancreatitis cannot be ruled out: Current FLuid and E-lyte status does not necessitate emergent need for Dialysis. Remains nonoliguric at this time Known history of renal mass: Follow-up with urology as outpatient Poorly controlled pain diabetes: Defer to Dr. Chery Acute pancreatitis: Defer to GI Anemia: No indications for erythropoietin administration at this time We will follow up on Tuesday in the interim please call with questions concerns Labs Labs Laboratory Tests Test 05/08/21 16:53 05/08/21 17:45 05/08/21 20:35 05/09/21 06:25 Glucose (Fingerstick) 405 mg/dL (70-99) 296 mg/dL (70-99) White Blood Count 6.3 x10^3/uL (4.0-11.0) 5.7 x10^3/uL (4.0-11.0) Red Blood Count 3.91 x10^6/uL (4.30-5.70) 3.78 x10^6/uL (4.30-5.70) Hemoglobin 11.7 g/dL (13.0-17.5) 11.4 g/dL (13.0-17.5) Hematocrit 35.2 % (39.0-53.0) 34.2 % (39.0-53.0) Mean Corpuscular Volume 90 fL (79-100) 90 fL (79-100) Mean Corpuscular Hemoglobin 30 pg (25-35) 30 pg (25-35) Mean Corpuscular Hemoglobin Concent 33 g/dL (31-37) 34 g/dL (31-37) Red Cell Distribution Width 13.9 % (11.5-14.5) 13.8 % (11.5-14.5) Platelet Count 218 x10^3/uL (140-400) 212 x10^3/uL (140-400) Neutrophils (%) (Auto) 63 % (31-73) 57 % (31-73) Lymphocytes (%) (Auto) 25 % (24-48) 29 % (24-48) Monocytes (%) (Auto) 10 % (0-9) 11 % (0-9) Eosinophils (%) (Auto) 1 % (0-3) 2 % (0-3) Basophils (%) (Auto) 1 % (0-3) 1 % (0-3) Neutrophils # (Auto) 4.0 x10^3/uL (1.8-7.7) 3.3 x10^3/uL (1.8-7.7) Lymphocytes # (Auto) 1.6 x10^3/uL (1.0-4.8) 1.7 x10^3/uL (1.0-4.8) Monocytes # (Auto) 0.6 x10^3/uL (0.0-1.1) 0.6 x10^3/uL (0.0-1.1) Eosinophils # (Auto) 0.1 x10^3/uL (0.0-0.7) 0.1 x10^3/uL (0.0-0.7) Basophils # (Auto) 0.0 x10^3/uL (0.0-0.2) 0.1 x10^3/uL (0.0-0.2) Sodium Level 136 mmol/L (136-145) 141 mmol/L (136-145) Potassium Level 4.5 mmol/L (3.5-5.1) 4.2 mmol/L (3.5-5.1) Chloride Level 101 mmol/L (98-107) 103 mmol/L (98-107) Carbon Dioxide Level 27 mmol/L (21-32) 28 mmol/L (21-32) Anion Gap 8 (6-14) 10 (6-14) Blood Urea Nitrogen 51 mg/dL (8-26) 44 mg/dL (8-26) Creatinine 2.1 mg/dL (0.7-1.3) 2.0 mg/dL (0.7-1.3) Estimated GFR (Cockcroft-Gault) 38.0 40.2 BUN/Creatinine Ratio 24 (6-20) Glucose Level 407 mg/dL (70-99) 283 mg/dL (70-99) Calcium Level 9.5 mg/dL (8.5-10.1) 9.2 mg/dL (8.5-10.1) Magnesium Level 2.2 mg/dL (1.8-2.4) Total Bilirubin 0.4 mg/dL (0.2-1.0) Aspartate Amino Transf (AST/SGOT) 17 U/L (15-37) Alanine Aminotransferase (ALT/SGPT) 20 U/L (16-63) Alkaline Phosphatase 94 U/L (46-116) Total Protein 7.9 g/dL (6.4-8.2) Albumin 3.0 g/dL (3.4-5.0) Albumin/Globulin Ratio 0.6 (1.0-1.7) Amylase Level 174 U/L (25-115) Lipase 1815 U/L (73-393) Test 05/09/21 07:20 05/09/21 12:03 Glucose (Fingerstick) 305 mg/dL (70-99) 255 mg/dL (70-99) Laboratory Tests Test 05/08/21 16:53 05/08/21 17:45 05/08/21 20:35 05/09/21 06:25 Glucose (Fingerstick) 405 mg/dL (70-99) 296 mg/dL (70-99) White Blood Count 6.3 x10^3/uL (4.0-11.0) 5.7 x10^3/uL (4.0-11.0) Red Blood Count 3.91 x10^6/uL (4.30-5.70) 3.78 x10^6/uL (4.30-5.70) Hemoglobin 11.7 g/dL (13.0-17.5) 11.4 g/dL (13.0-17.5) Hematocrit 35.2 % (39.0-53.0) 34.2 % (39.0-53.0) Mean Corpuscular Volume 90 fL (79-100) 90 fL (79-100) Mean Corpuscular Hemoglobin 30 pg (25-35) 30 pg (25-35) Mean Corpuscular Hemoglobin Concent 33 g/dL (31-37) 34 g/dL (31-37) Red Cell Distribution Width 13.9 % (11.5-14.5) 13.8 % (11.5-14.5) Platelet Count 218 x10^3/uL (140-400) 212 x10^3/uL (140-400) Neutrophils (%) (Auto) 63 % (31-73) 57 % (31-73) Lymphocytes (%) (Auto) 25 % (24-48) 29 % (24-48) Monocytes (%) (Auto) 10 % (0-9) 11 % (0-9) Eosinophils (%) (Auto) 1 % (0-3) 2 % (0-3) Basophils (%) (Auto) 1 % (0-3) 1 % (0-3) Neutrophils # (Auto) 4.0 x10^3/uL (1.8-7.7) 3.3 x10^3/uL (1.8-7.7) Lymphocytes # (Auto) 1.6 x10^3/uL (1.0-4.8) 1.7 x10^3/uL (1.0-4.8) Monocytes # (Auto) 0.6 x10^3/uL (0.0-1.1) 0.6 x10^3/uL (0.0-1.1) Eosinophils # (Auto) 0.1 x10^3/uL (0.0-0.7) 0.1 x10^3/uL (0.0-0.7) Basophils # (Auto) 0.0 x10^3/uL (0.0-0.2) 0.1 x10^3/uL (0.0-0.2) Sodium Level 136 mmol/L (136-145) 141 mmol/L (136-145) Potassium Level 4.5 mmol/L (3.5-5.1) 4.2 mmol/L (3.5-5.1) Chloride Level 101 mmol/L (98-107) 103 mmol/L (98-107) Carbon Dioxide Level 27 mmol/L (21-32) 28 mmol/L (21-32) Anion Gap 8 (6-14) 10 (6-14) Blood Urea Nitrogen 51 mg/dL (8-26) 44 mg/dL (8-26) Creatinine 2.1 mg/dL (0.7-1.3) 2.0 mg/dL (0.7-1.3) Estimated GFR (Cockcroft-Gault) 38.0 40.2 BUN/Creatinine Ratio 24 (6-20) Glucose Level 407 mg/dL (70-99) 283 mg/dL (70-99) Calcium Level 9.5 mg/dL (8.5-10.1) 9.2 mg/dL (8.5-10.1) Magnesium Level 2.2 mg/dL (1.8-2.4) Total Bilirubin 0.4 mg/dL (0.2-1.0) Aspartate Amino Transf (AST/SGOT) 17 U/L (15-37) Alanine Aminotransferase (ALT/SGPT) 20 U/L (16-63) Alkaline Phosphatase 94 U/L (46-116) Total Protein 7.9 g/dL (6.4-8.2) Albumin 3.0 g/dL (3.4-5.0) Albumin/Globulin Ratio 0.6 (1.0-1.7) Amylase Level 174 U/L (25-115) Lipase 1815 U/L (73-393) Test 05/09/21 07:20 05/09/21 12:03 Glucose (Fingerstick) 305 mg/dL (70-99) 255 mg/dL (70-99) Review All relevant outside records, renal labs, imaging studies, telemetry/EKG's were reviewed. Images Images CT scan abdomen pelvis done earlier today IMPRESSION: Questionable slight swelling of the pancreatic head compared to the prior exam. Correlation with pancreatic enzymes would be useful. Possible slight regression of left renal mass. Slight increased size of left retroperitoneal lymph node. MARGARITA WHITMAN MD May 09, 2021 12:20
[2021-05-09] MEDS: ISOSORBIDE MONONITRATE ER 30 MG TAB.ER.24H PO SCH (12:23)
[2021-05-09] MEDS: MULTIVITAMIN with MINERAL TABLET. PO SCH (12:23)
[2021-05-09] MEDS: PANTOPRAZOLE 40 MG TABLET.DR. PO SCH (12:23)
[2021-05-09] MEDS: CARVEDILOL 12.5 MG TABLET. PO SCH ×2 (12:24→16:13)
[2021-05-09] MEDS: ASPIRIN 325 MG TABLET PO SCH (12:24)
[2021-05-09] MEDS: CLOPIDOGREL BISULFATE 75 MG TABLET PO SCH (12:25)
[2021-05-09] MEDS: ALLOPURINOL 100 MG TABLET. PO SCH (12:25)
--- NOTE | 2021-05-09 12:42 | HP ---
DATE OF SERVICE: 05/09/2021 ADMIT DATE: 05/08/2021 LOCATION: He is in room 528. HISTORY OF PRESENT ILLNESS: The patient is a 71-year-old morbidly obese -[place] male with a history of diabetes mellitus type 2, treated with insulin with diabetic nephropathy and chronic kidney disease stage 3B, who has hypertension, hyperlipidemia and also has a left kidney cancer, chronic gout, peripheral arterial disease and was admitted to [facility] from my office on 05/08/2021 with a 1-week history of epigastric abdominal pain associated with nausea and vomiting. He has been drinking chicken broth and eating ice, but has not been taking any of his insulin over the last several days. Last bowel movement was 4 days ago. He took some Pepto-Bismol before that and noted a black stool. Denies any fever or hemoptysis. He does not drink alcohol. He is admitted to the hospital for further evaluation of his nausea, vomiting, abdominal pain and poor appetite. ALLERGIES AND INTOLERANCES: INCLUDE LISINOPRIL, ACTOS AND IBUPROFEN, but he does take aspirin. MEDICATIONS PRIOR TO ADMISSION: Include, he is on furosemide 80 mg p.o. b.i.d., atorvastatin 40 mg at bedtime, metoclopramide 5 mg before meals t.i.d. and bedtime, NovoLog insulin 34 units before meals b.i.d. as he eats 2 meals a day at home, carvedilol 25 mg b.i.d., Levemir insulin 88 units at bedtime, metolazone 5 mg on Mondays and , allopurinol 100 mg every day, gabapentin 100 mg t.i.d., [place] 5/325 one b.i.d. p.r.n. for pain, omeprazole 40 mg every day, Catapres TTS-2 two patches every week applied Tuesday, aspirin 81 mg every day, amlodipine 10 mg every day, multiple vitamin once a day, fish oil 1 gram every day, clopidogrel 75 mg every day, hydralazine 50 mg t.i.d., isosorbide mononitrate extended release 60 mg once a day and I believe he is also on eyedrops for glaucoma. It says here Timoptic 0.5% one drop in both eyes daily, but that has to be confirmed. PAST MEDICAL HISTORY: Significant for 2 or 3 episodes of epigastric and generalized abdominal pain in the past and workup has been negative. He does have a recently diagnosed left kidney cancer, followed by Dr. Singer, the urologist and he is scheduled to have a partial left nephrectomy at [facility] on 06/01/2021. He does have a history of diabetes mellitus type 2 with nephropathy, who is on insulin. He has chronic kidney disease stage 3B, diabetic nephropathy, hypertension, hyperlipidemia, gastroesophageal reflux disease, erectile dysfunction. He has a history of, as mentioned, hypertension, hyperlipidemia, morbid obesity, peripheral arterial disease, glaucoma, chronic gout, bilateral lower extremity venous stasis edema, diabetic retinopathy. He has a history of a colon polypectomy in 2011. Acute pancreatitis in 1994 and also in 2001. He had an EGD with esophageal dilatation in 2014. Left arch foot surgery in 2006, bilateral cataract extraction, bilateral laser eye treatment. Right lobe thyroidectomy in 2013. He has had a left femoral and popliteal artery angioplasty and stent in 2014. SOCIAL HISTORY: He does not drink alcohol. Smokes about a pack per day of cigarettes. FAMILY HISTORY: Mother had tuberculosis. Father had diabetes mellitus. REVIEW OF SYSTEMS: GENERAL: There has been no fever, chills or sweats. CARDIOVASCULAR: No chest pain. PULMONARY: No cough or shortness of breath. GASTROINTESTINAL: He has epigastric abdominal pain, nausea, vomiting, poor appetite. ENDOCRINE: He has diabetes mellitus. SKIN: No rashes. The rest of review of systems reviewed and are negative except as stated in history of present illness. PHYSICAL EXAMINATION: VITAL SIGNS: Temperature 98.5 degrees, heart rate regular at 77, respiratory rate 18, blood pressure was 197/80. Oxygen saturation 97% on room air. HEENT: Eyes, gaze is conjugate. Mouth: Tongue is midline. NECK: There is no cervical lymphadenopathy or thyroid enlargement. HEART: Reveals an S1, S2. There is no S3 or murmur. LUNGS: Clear. ABDOMEN: Obese and soft. Bowel sounds positive. He has got epigastric, right upper quadrant, left upper quadrant tenderness. EXTREMITIES: Lower extremities without edema. SKIN: No rashes. NEUROLOGIC: He is coherent with no focal weakness in arms or legs or facial asymmetry. LABORATORY DATA: White count was 6.3 yesterday, 5.7 today; hemoglobin 11.7 yesterday, 11.4 today; platelet count 218,000 and 212,000 today and yesterday he had 63 polys and 25 lymphocytes and today he has got 57 polys and 29 lymphocytes. Today, the sodium is 141, potassium 4.2, chloride 103, total CO2 is 28 with a BUN 44, creatinine 2.0. On admitting, his BUN was 51, creatinine 2.1 and his blood sugar was 407 on admission, today is 305 by fingerstick and 283 per lab. Calcium was 9.2. His albumin was 3.0. Amylase was high at 174, lipase was high at 1815. IMAGING DATA: He had an acute abdominal series done and chest x-ray, which was unremarkable, no lung infiltrates. He had some deviation of his trachea to the right side, which he had before. Prior CAT scan showed a goiter. He had a nonobstructive gas pattern. He had a CAT scan of the abdomen and pelvis done without contrast and it showed questionable swelling in the head of the pancreas compared to the prior examination. He had a possible slight regression of the left renal mass and he had a slight increase size of a left retroperitoneal lymph node. He had a fat-containing hernia noted through the anterior abdominal wall. ASSESSMENT: 1. Acute pancreatitis. He does not drink alcohol. We will be getting an ultrasound of the abdomen to look at his gallbladder for any evidence of acute cholecystitis or gallstones. Also, check his triglyceride level. His serum calcium level is normal, there has been no abdominal trauma. His medications were reviewed and there is nothing there that should be causing acute pancreatitis. 2. Diabetes mellitus type 2, on insulin with hyperglycemia. 3. Hypertension. 4. Hyperlipidemia. 5. Left kidney cancer, scheduled to have a partial left nephrectomy on 06/01/2021. 6. Morbid obesity. 7. Diabetic nephropathy. 8. Chronic kidney disease, stage 3B. 9. Chronic gout. 10. Peripheral arterial disease. 11. Moderate protein calorie malnutrition. PLAN: At this time, I already consulted the surgeon who seen him and also consulted the GI doctors who already seen him in consultation. An ultrasound of the abdomen has been ordered. We will rest his pancreas and just go ahead with his oral medications with sips of water and may have ice p.r.n. Repeat CBC, BMP and amylase and lipase tomorrow and we will get a lipid profile tomorrow also. We will put him on a lower dose of Levemir insulin and Humalog insulin sliding scale every 6 hours as he is n.p.o. He takes high doses of insulin at home and he has hyperglycemia. Start him on Clinimix at 80 mL an hour. He can always adjust his insulin and increase it as necessary. We will order some physical and occupational therapy. Heparin for deep vein thrombosis prophylaxis. Continue with most of his home medications that I have ordered and order some Zofran 4 mg IV every 6 hours p.r.n., morphine 2 mg IV every 4 hours p.r.n., [place] 5/325 one p.o. every 4 hours p.r.n. for pain. Resume his antihypertensive medications including amlodipine, carvedilol and he will have two new Catapres patches applied today. Continue the hydralazine also. Continue the furosemide and metolazone. Also put him on Protonix. Physical and occupational therapy has been ordered. We will check his blood sugars every 6 hours. Discontinue his D5 one-half normal saline with 20 mEq of potassium chloride and switch him to Clinimix at 80 mL an hour. Thank you very much. SANJUANA/JHON/YIFAN DR: SANJUANA/mis TID: [id number]
[2021-05-09 15:00] VITALS: BP 101/55
[2021-05-09] MEDS: FUROSEMIDE 80 MG TABLET. PO SCH (16:12)
[2021-05-09] MEDS: METOCLOPRAMIDE 10 MG TABLET. PO SCH ×3 (16:12→20:53)
[2021-05-09] MEDS: GABAPENTIN 100 MG CAPSULE. PO SCH ×2 (16:14→20:53)
[2021-05-09 19:00] VITALS: BP 126/56
[2021-05-09] MEDS: ATORVASTATIN CALCIUM 40 MG TABLET. PO SCH (20:53)
[2021-05-09] MEDS ORDERED: INSULIN GLARGINE SYRINGE. SQ SCH (21:00)
[2021-05-09 23:00] VITALS: BP 159/60
[2021-05-10 03:00] VITALS: BP 144/46
--- NOTE | 2021-05-10 03:01 | RAD ---
Clinical History: Acute pancreatitis and clinical certain for gallstones Technique: Sonographic examination of the right upper quadrant of the abdomen was performed and mult iple static images were obtained. Comparison: none Findings: Visualization is limited due to large body habitus and overlying bowel gas. Liver: The majority of the liver is visualized and appears homogeneous. There is increased echogenic ity which further limits ultrasound sensitivity for a possible solid liver lesion. Common bile duct: Appears normal and measures 2.5 mm in diameter. Gallbladder: appears normal. Pancreas: is not well visualized due to overlying bowel gas. Right kidney: Not seen likely secondary to prior nephrectomy Main Portal Vein: Normal hepatopedal flow Aorta: Not well seen IVC: Not well seen Impression: Fatty infiltration of the liver. No evidence of gallbladder disease. Electronically signed by: Manjit Alves III, MD (05/10/2021 2:59 AM) [facility]
--- NOTE | 2021-05-10 03:14 | CONS ---
DATE OF CONSULTATION: 05/09/2021 GASTROINTESTINAL CONSULTATION REASON FOR CONSULTATION: Recurrent nausea, vomiting, abdominal pain. REFERRING PHYSICIAN: Jaiden Chery MD HISTORY OF PRESENT ILLNESS: This is a 71-year-old male who has past medical history significant for longstanding hypertension, hyperlipidemia, poorly controlled diabetes, chronic renal insufficiency, gastroesophageal reflux disease, was admitted to [facility] with inability to keep much down for the past week. He states that increased discomfort with each meal. Sugars have been running in the 400-[address] scan is suggestive of possible pancreatitis and biochemical studies did reveal mild elevation of amylase and more significant elevation of lipase with normal liver function tests. Due to this, consultation is requested. PAST MEDICAL HISTORY: Hypertension, hyperlipidemia, diabetes, chronic renal insufficiency. PAST SURGICAL HISTORY: Significant for cataract removal. SOCIAL HISTORY: Nondrinker, nonsmoker. MEDICATIONS: Presently include clonidine, insulin, lorazepam, pantoprazole. REVIEW OF SYSTEMS: Per records. PHYSICAL EXAMINATION: VITAL SIGNS: Temperature is 98.5, pulse is 68, respiratory rate 18, blood pressure is 105/76. HEENT: Normocephalic, atraumatic head. Pupils and extraocular muscles not tested. Sclerae are anicteric. NECK: Supple. LUNGS: Clear. CARDIOVASCULAR: Reveals an S1, S2, without S3, S4 or appreciable murmur. ABDOMEN: Reveals a soft abdomen with epigastric tenderness to palpation without appreciable hepatosplenomegaly. EXTREMITIES: Reveals no cyanosis, clubbing or edema. LABORATORY DATA: Sodium 141, potassium 4.2, chloride 108, bicarbonate 28, BUN 24, creatinine 2.0, glucose is 263, total protein 7.9, albumin 3.8, amylase 174, lipase of 1815, calcium 9.5, magnesium 2.2, total bilirubin 0.4, AST of 17, ALT of 20, alkaline phosphatase 94. Hemoglobin 11.4, hematocrit 34.2, white count 5.7, platelet count is 212,000. CT, possible pancreatitis. IMPRESSION AND PLAN: Abdominal pain, nausea, vomiting, most likely secondary to chronic cholecystitis and longstanding diabetic gastroparesis. We will recommend the patient as an outpatient a fasting lipid panel to reassess ongoing needs for additional statin therapy and/or ____ therapy. Imaging for gallbladder disease would be pursued as well with the surgery and improved glycemic control with his primary is recommended. MAGGI/JASMINE DR: Connie TID: [id number] CC: JAIDEN WANG MD, JAIDEN CHERY MD
[2021-05-10] MEDS: HEPARIN for SUB-Q USE 5,000 UNIT/ML VIAL. SQ SCH ×3 (05:58→22:32)
[2021-05-10 07:00] VITALS: BP 150/56
[2021-05-10 07:17] LABS: BASO % 1 % (0-3); EOS # 0.1 x10^3/uL (0.0-0.7); EOS % 1 % (0-3); HEMATOCRIT 34.4 % (39.0-53.0); HEMOGLOBIN 11.5 g/dL (13.0-17.5); LYMPH # 1.3 x10^3/uL (1.0-4.8); LYMPH % 25 % (24-48); MEAN CORPUSCULAR HEMOGLOBIN 30 pg (25-35); MEAN CORPUSCULAR HGB CONC 33 g/dL (31-37); MEAN CORPUSCULAR VOLUME 91 fL (79-100); MONO # 0.6 x10^3/uL (0.0-1.1); MONO % 10 % (0-9); NEUT # 3.4 x10^3/uL (1.8-7.7); NEUT % 63 % (31-73); PLATELET COUNT 205 x10^3/uL (140-400); RED BLOOD COUNT 3.79 x10^6/uL (4.30-5.70); RED CELL DISTRIBUTION WIDTH 14.1 % (11.5-14.5); WHITE BLOOD COUNT 5.4 x10^3/uL (4.0-11.0)
[2021-05-10 08:00] LABS: CALCIUM 9.2 mg/dL (8.5-10.1); CREATININE 2.3 mg/dL (0.7-1.3); GFR 34.2; POTASSIUM 4.9 mmol/L (3.5-5.1)
[2021-05-10 08:11] LABS: CHOLESTEROL/HDL RATIO 6.2
[2021-05-10] MEDS: MULTIVITAMIN with MINERAL TABLET. PO SCH (08:50)
[2021-05-10] MEDS: FUROSEMIDE 80 MG TABLET. PO SCH ×2 (08:51→18:10)
[2021-05-10] MEDS: PANTOPRAZOLE 40 MG TABLET.DR. PO SCH (08:51)
[2021-05-10] MEDS: ALLOPURINOL 100 MG TABLET. PO SCH (08:51)
[2021-05-10] MEDS: GABAPENTIN 100 MG CAPSULE. PO SCH ×3 (08:51→22:30)
[2021-05-10] MEDS: ISOSORBIDE MONONITRATE ER 30 MG TAB.ER.24H PO SCH (08:51)
[2021-05-10] MEDS: ASPIRIN 325 MG TABLET PO SCH (08:51)
[2021-05-10] MEDS: CARVEDILOL 12.5 MG TABLET. PO SCH ×2 (08:52→17:00)
[2021-05-10] MEDS: CLOPIDOGREL BISULFATE 75 MG TABLET PO SCH (08:53)
[2021-05-10] MEDS: METOCLOPRAMIDE 10 MG TABLET. PO SCH ×4 (08:53→18:18)
--- NOTE | 2021-05-10 09:00 | PDOC ---
SURGICAL PROGRESS NOTE DATE: 05/10/21 TIME: 08:59 Subjective Patient does not say much says he still hurting Vital Signs Vital Signs Date Time Temp Pulse Resp B/P (MAP) Pulse Ox O2 Delivery O2 Flow Rate FiO2 05/10/21 07:00 97.5 83 16 150/56 (87) 95 97.5 05/10/21 03:00 Room Air I&O Intake and Output 05/10/21 07:00 Output Total 185 ml Balance -185 ml Output Urine Total 185 ml PATIENT HAS A TORO: No General: Alert, Oriented X3, Cooperative, No acute distress Abdomen: Normal bowel sounds, Soft, No tenderness Labs Laboratory Tests Test 05/08/21 16:53 05/08/21 17:45 05/08/21 20:35 05/09/21 06:25 Glucose (Fingerstick) 405 mg/dL (70-99) 296 mg/dL (70-99) White Blood Count 6.3 x10^3/uL (4.0-11.0) 5.7 x10^3/uL (4.0-11.0) Red Blood Count 3.91 x10^6/uL (4.30-5.70) 3.78 x10^6/uL (4.30-5.70) Hemoglobin 11.7 g/dL (13.0-17.5) 11.4 g/dL (13.0-17.5) Hematocrit 35.2 % (39.0-53.0) 34.2 % (39.0-53.0) Mean Corpuscular Volume 90 fL (79-100) 90 fL (79-100) Mean Corpuscular Hemoglobin 30 pg (25-35) 30 pg (25-35) Mean Corpuscular Hemoglobin Concent 33 g/dL (31-37) 34 g/dL (31-37) Red Cell Distribution Width 13.9 % (11.5-14.5) 13.8 % (11.5-14.5) Platelet Count 218 x10^3/uL (140-400) 212 x10^3/uL (140-400) Neutrophils (%) (Auto) 63 % (31-73) 57 % (31-73) Lymphocytes (%) (Auto) 25 % (24-48) 29 % (24-48) Monocytes (%) (Auto) 10 % (0-9) 11 % (0-9) Eosinophils (%) (Auto) 1 % (0-3) 2 % (0-3) Basophils (%) (Auto) 1 % (0-3) 1 % (0-3) Neutrophils # (Auto) 4.0 x10^3/uL (1.8-7.7) 3.3 x10^3/uL (1.8-7.7) Lymphocytes # (Auto) 1.6 x10^3/uL (1.0-4.8) 1.7 x10^3/uL (1.0-4.8) Monocytes # (Auto) 0.6 x10^3/uL (0.0-1.1) 0.6 x10^3/uL (0.0-1.1) Eosinophils # (Auto) 0.1 x10^3/uL (0.0-0.7) 0.1 x10^3/uL (0.0-0.7) Basophils # (Auto) 0.0 x10^3/uL (0.0-0.2) 0.1 x10^3/uL (0.0-0.2) Sodium Level 136 mmol/L (136-145) 141 mmol/L (136-145) Potassium Level 4.5 mmol/L (3.5-5.1) 4.2 mmol/L (3.5-5.1) Chloride Level 101 mmol/L (98-107) 103 mmol/L (98-107) Carbon Dioxide Level 27 mmol/L (21-32) 28 mmol/L (21-32) Anion Gap 8 (6-14) 10 (6-14) Blood Urea Nitrogen 51 mg/dL (8-26) 44 mg/dL (8-26) Creatinine 2.1 mg/dL (0.7-1.3) 2.0 mg/dL (0.7-1.3) Estimated GFR (Cockcroft-Gault) 38.0 40.2 BUN/Creatinine Ratio 24 (6-20) Glucose Level 407 mg/dL (70-99) 283 mg/dL (70-99) Calcium Level 9.5 mg/dL (8.5-10.1) 9.2 mg/dL (8.5-10.1) Magnesium Level 2.2 mg/dL (1.8-2.4) Total Bilirubin 0.4 mg/dL (0.2-1.0) Aspartate Amino Transf (AST/SGOT) 17 U/L (15-37) Alanine Aminotransferase (ALT/SGPT) 20 U/L (16-63) Alkaline Phosphatase 94 U/L (46-116) Total Protein 7.9 g/dL (6.4-8.2) Albumin 3.0 g/dL (3.4-5.0) Albumin/Globulin Ratio 0.6 (1.0-1.7) Amylase Level 174 U/L (25-115) Lipase 1815 U/L (73-393) Test 05/09/21 07:20 05/09/21 12:03 05/09/21 17:02 05/09/21 19:43 Glucose (Fingerstick) 305 mg/dL (70-99) 255 mg/dL (70-99) 251 mg/dL (70-99) 321 mg/dL (70-99) Test 05/10/21 06:25 05/10/21 07:26 White Blood Count 5.4 x10^3/uL (4.0-11.0) Red Blood Count 3.79 x10^6/uL (4.30-5.70) Hemoglobin 11.5 g/dL (13.0-17.5) Hematocrit 34.4 % (39.0-53.0) Mean Corpuscular Volume 91 fL (79-100) Mean Corpuscular Hemoglobin 30 pg (25-35) Mean Corpuscular Hemoglobin Concent 33 g/dL (31-37) Red Cell Distribution Width 14.1 % (11.5-14.5) Platelet Count 205 x10^3/uL (140-400) Neutrophils (%) (Auto) 63 % (31-73) Lymphocytes (%) (Auto) 25 % (24-48) Monocytes (%) (Auto) 10 % (0-9) Eosinophils (%) (Auto) 1 % (0-3) Basophils (%) (Auto) 1 % (0-3) Neutrophils # (Auto) 3.4 x10^3/uL (1.8-7.7) Lymphocytes # (Auto) 1.3 x10^3/uL (1.0-4.8) Monocytes # (Auto) 0.6 x10^3/uL (0.0-1.1) Eosinophils # (Auto) 0.1 x10^3/uL (0.0-0.7) Basophils # (Auto) 0.0 x10^3/uL (0.0-0.2) Sodium Level 135 mmol/L (136-145) Potassium Level 4.9 mmol/L (3.5-5.1) Chloride Level 100 mmol/L (98-107) Carbon Dioxide Level 26 mmol/L (21-32) Anion Gap 9 (6-14) Blood Urea Nitrogen 51 mg/dL (8-26) Creatinine 2.3 mg/dL (0.7-1.3) Estimated GFR (Cockcroft-Gault) 34.2 Glucose Level 421 mg/dL (70-99) Calcium Level 9.2 mg/dL (8.5-10.1) Triglycerides Level 283 mg/dL (0-150) Cholesterol Level 161 mg/dL (0-200) LDL Cholesterol, Calculated 78 mg/dL (0-100) VLDL Cholesterol, Calculated 57 mg/dL (0-40) Non-HDL Cholesterol Calculated 135 mg/dL (0-129) HDL Cholesterol 26 mg/dL (40-60) Cholesterol/HDL Ratio 6.2 Amylase Level 99 U/L (25-115) Lipase 706 U/L (73-393) Glucose (Fingerstick) 402 mg/dL (70-99) Laboratory Tests Test 05/09/21 12:03 05/09/21 17:02 05/09/21 19:43 05/10/21 06:25 Glucose (Fingerstick) 255 mg/dL (70-99) 251 mg/dL (70-99) 321 mg/dL (70-99) White Blood Count 5.4 x10^3/uL (4.0-11.0) Red Blood Count 3.79 x10^6/uL (4.30-5.70) Hemoglobin 11.5 g/dL (13.0-17.5) Hematocrit 34.4 % (39.0-53.0) Mean Corpuscular Volume 91 fL (79-100) Mean Corpuscular Hemoglobin 30 pg (25-35) Mean Corpuscular Hemoglobin Concent 33 g/dL (31-37) Red Cell Distribution Width 14.1 % (11.5-14.5) Platelet Count 205 x10^3/uL (140-400) Neutrophils (%) (Auto) 63 % (31-73) Lymphocytes (%) (Auto) 25 % (24-48) Monocytes (%) (Auto) 10 % (0-9) Eosinophils (%) (Auto) 1 % (0-3) Basophils (%) (Auto) 1 % (0-3) Neutrophils # (Auto) 3.4 x10^3/uL (1.8-7.7) Lymphocytes # (Auto) 1.3 x10^3/uL (1.0-4.8) Monocytes # (Auto) 0.6 x10^3/uL (0.0-1.1) Eosinophils # (Auto) 0.1 x10^3/uL (0.0-0.7) Basophils # (Auto) 0.0 x10^3/uL (0.0-0.2) Sodium Level 135 mmol/L (136-145) Potassium Level 4.9 mmol/L (3.5-5.1) Chloride Level 100 mmol/L (98-107) Carbon Dioxide Level 26 mmol/L (21-32) Anion Gap 9 (6-14) Blood Urea Nitrogen 51 mg/dL (8-26) Creatinine 2.3 mg/dL (0.7-1.3) Estimated GFR (Cockcroft-Gault) 34.2 Glucose Level 421 mg/dL (70-99) Calcium Level 9.2 mg/dL (8.5-10.1) Triglycerides Level 283 mg/dL (0-150) Cholesterol Level 161 mg/dL (0-200) LDL Cholesterol, Calculated 78 mg/dL (0-100) VLDL Cholesterol, Calculated 57 mg/dL (0-40) Non-HDL Cholesterol Calculated 135 mg/dL (0-129) HDL Cholesterol 26 mg/dL (40-60) Cholesterol/HDL Ratio 6.2 Amylase Level 99 U/L (25-115) Lipase 706 U/L (73-393) Test 05/10/21 07:26 Glucose (Fingerstick) 402 mg/dL (70-99) Assessment/Plan Ultrasound of the gallbladder shows no stones or gallbladder disease Pancreatitis does not appear to be related to the gallbladder no surgical plans at this time Justicifation of Admission Dx: Justifications for Admission: Justification of Admission Dx: Yes SEAN CORTEZ MD May 10, 2021 09:00
[2021-05-10] MEDS ORDERED: IV 1/2 NORMAL SALINE 1,000 ML IV SCH (09:30)
--- NOTE | 2021-05-10 09:41 | PDOC ---
PROGRESS NOTES Date of Service DATE: 05/10/21 TIME: 09:36 Subjective Subjective still complains of upper abdominal pain . lab reviewed. amylase normal and lipase better. abdominal sonogram shows no cholelithiasis and no gallstones. has a fatty liver. no nausea or vomiting. blood pressure better. blood sugars high. trigs and calcium are okay Objective Objective Vital Signs Date Time Temp Pulse Resp B/P (MAP) Pulse Ox O2 Delivery O2 Flow Rate FiO2 05/10/21 08:53 77 144/46 05/10/21 07:00 97.5 16 95 97.5 05/10/21 03:00 Room Air Intake and Output 05/10/21 07:00 Output Total 185 ml Balance -185 ml Output Urine Total 185 ml Physical Exam Abdomen: Soft, Other (obese. tender epigastiric RUQ and LUQ.) Heart: Regular rate, Normal S1, Normal S2 Extremities: No edema, Other (dry dressing RLE) General: Alert HEENT: Atraumatic Lungs: Clear to auscultation Neuro: Normal speech Psych/Mental Status: Mental status NL Skin: Other (skin wound RLE with dressing) Assessment Assessment 1. Acute pancreatitis. idiopathic 2. Diabetes mellitus type 2, on insulin with hyperglycemia. 3. Hypertension. 4. Hyperlipidemia. 5. Left kidney cancer, scheduled to have a partial left nephrectomy on 06/01/2021. 6. Morbid obesity. 7. Diabetic nephropathy. 8. Chronic kidney disease, stage 3B. 9. Chronic gout. 10. Peripheral arterial disease. 11. Moderate protein calorie malnutrition. RLE wound POA Plan Plan of Care start clear liquids d/c PPN due to hyperglycemia start iv fluids continue analgesics increase insulin lab tomorrow consult wound care nurse PT and OT Comment Review of Relevant I have reviewed the following items puneet (where applicable) has been applied. Labs Laboratory Tests Test 05/08/21 16:53 05/08/21 17:45 05/08/21 20:35 05/09/21 06:25 Glucose (Fingerstick) 405 mg/dL (70-99) 296 mg/dL (70-99) White Blood Count 6.3 x10^3/uL (4.0-11.0) 5.7 x10^3/uL (4.0-11.0) Red Blood Count 3.91 x10^6/uL (4.30-5.70) 3.78 x10^6/uL (4.30-5.70) Hemoglobin 11.7 g/dL (13.0-17.5) 11.4 g/dL (13.0-17.5) Hematocrit 35.2 % (39.0-53.0) 34.2 % (39.0-53.0) Mean Corpuscular Volume 90 fL (79-100) 90 fL (79-100) Mean Corpuscular Hemoglobin 30 pg (25-35) 30 pg (25-35) Mean Corpuscular Hemoglobin Concent 33 g/dL (31-37) 34 g/dL (31-37) Red Cell Distribution Width 13.9 % (11.5-14.5) 13.8 % (11.5-14.5) Platelet Count 218 x10^3/uL (140-400) 212 x10^3/uL (140-400) Neutrophils (%) (Auto) 63 % (31-73) 57 % (31-73) Lymphocytes (%) (Auto) 25 % (24-48) 29 % (24-48) Monocytes (%) (Auto) 10 % (0-9) 11 % (0-9) Eosinophils (%) (Auto) 1 % (0-3) 2 % (0-3) Basophils (%) (Auto) 1 % (0-3) 1 % (0-3) Neutrophils # (Auto) 4.0 x10^3/uL (1.8-7.7) 3.3 x10^3/uL (1.8-7.7) Lymphocytes # (Auto) 1.6 x10^3/uL (1.0-4.8) 1.7 x10^3/uL (1.0-4.8) Monocytes # (Auto) 0.6 x10^3/uL (0.0-1.1) 0.6 x10^3/uL (0.0-1.1) Eosinophils # (Auto) 0.1 x10^3/uL (0.0-0.7) 0.1 x10^3/uL (0.0-0.7) Basophils # (Auto) 0.0 x10^3/uL (0.0-0.2) 0.1 x10^3/uL (0.0-0.2) Sodium Level 136 mmol/L (136-145) 141 mmol/L (136-145) Potassium Level 4.5 mmol/L (3.5-5.1) 4.2 mmol/L (3.5-5.1) Chloride Level 101 mmol/L (98-107) 103 mmol/L (98-107) Carbon Dioxide Level 27 mmol/L (21-32) 28 mmol/L (21-32) Anion Gap 8 (6-14) 10 (6-14) Blood Urea Nitrogen 51 mg/dL (8-26) 44 mg/dL (8-26) Creatinine 2.1 mg/dL (0.7-1.3) 2.0 mg/dL (0.7-1.3) Estimated GFR (Cockcroft-Gault) 38.0 40.2 BUN/Creatinine Ratio 24 (6-20) Glucose Level 407 mg/dL (70-99) 283 mg/dL (70-99) Calcium Level 9.5 mg/dL (8.5-10.1) 9.2 mg/dL (8.5-10.1) Magnesium Level 2.2 mg/dL (1.8-2.4) Total Bilirubin 0.4 mg/dL (0.2-1.0) Aspartate Amino Transf (AST/SGOT) 17 U/L (15-37) Alanine Aminotransferase (ALT/SGPT) 20 U/L (16-63) Alkaline Phosphatase 94 U/L (46-116) Total Protein 7.9 g/dL (6.4-8.2) Albumin 3.0 g/dL (3.4-5.0) Albumin/Globulin Ratio 0.6 (1.0-1.7) Amylase Level 174 U/L (25-115) Lipase 1815 U/L (73-393) Test 05/09/21 07:20 05/09/21 12:03 05/09/21 17:02 05/09/21 19:43 Glucose (Fingerstick) 305 mg/dL (70-99) 255 mg/dL (70-99) 251 mg/dL (70-99) 321 mg/dL (70-99) Test 05/10/21 06:25 05/10/21 07:26 White Blood Count 5.4 x10^3/uL (4.0-11.0) Red Blood Count 3.79 x10^6/uL (4.30-5.70) Hemoglobin 11.5 g/dL (13.0-17.5) Hematocrit 34.4 % (39.0-53.0) Mean Corpuscular Volume 91 fL (79-100) Mean Corpuscular Hemoglobin 30 pg (25-35) Mean Corpuscular Hemoglobin Concent 33 g/dL (31-37) Red Cell Distribution Width 14.1 % (11.5-14.5) Platelet Count 205 x10^3/uL (140-400) Neutrophils (%) (Auto) 63 % (31-73) Lymphocytes (%) (Auto) 25 % (24-48) Monocytes (%) (Auto) 10 % (0-9) Eosinophils (%) (Auto) 1 % (0-3) Basophils (%) (Auto) 1 % (0-3) Neutrophils # (Auto) 3.4 x10^3/uL (1.8-7.7) Lymphocytes # (Auto) 1.3 x10^3/uL (1.0-4.8) Monocytes # (Auto) 0.6 x10^3/uL (0.0-1.1) Eosinophils # (Auto) 0.1 x10^3/uL (0.0-0.7) Basophils # (Auto) 0.0 x10^3/uL (0.0-0.2) Sodium Level 135 mmol/L (136-145) Potassium Level 4.9 mmol/L (3.5-5.1) Chloride Level 100 mmol/L (98-107) Carbon Dioxide Level 26 mmol/L (21-32) Anion Gap 9 (6-14) Blood Urea Nitrogen 51 mg/dL (8-26) Creatinine 2.3 mg/dL (0.7-1.3) Estimated GFR (Cockcroft-Gault) 34.2 Glucose Level 421 mg/dL (70-99) Calcium Level 9.2 mg/dL (8.5-10.1) Triglycerides Level 283 mg/dL (0-150) Cholesterol Level 161 mg/dL (0-200) LDL Cholesterol, Calculated 78 mg/dL (0-100) VLDL Cholesterol, Calculated 57 mg/dL (0-40) Non-HDL Cholesterol Calculated 135 mg/dL (0-129) HDL Cholesterol 26 mg/dL (40-60) Cholesterol/HDL Ratio 6.2 Amylase Level 99 U/L (25-115) Lipase 706 U/L (73-393) Glucose (Fingerstick) 402 mg/dL (70-99) Laboratory Tests Test 05/09/21 12:03 05/09/21 17:02 05/09/21 19:43 05/10/21 06:25 Glucose (Fingerstick) 255 mg/dL (70-99) 251 mg/dL (70-99) 321 mg/dL (70-99) White Blood Count 5.4 x10^3/uL (4.0-11.0) Red Blood Count 3.79 x10^6/uL (4.30-5.70) Hemoglobin 11.5 g/dL (13.0-17.5) Hematocrit 34.4 % (39.0-53.0) Mean Corpuscular Volume 91 fL (79-100) Mean Corpuscular Hemoglobin 30 pg (25-35) Mean Corpuscular Hemoglobin Concent 33 g/dL (31-37) Red Cell Distribution Width 14.1 % (11.5-14.5) Platelet Count 205 x10^3/uL (140-400) Neutrophils (%) (Auto) 63 % (31-73) Lymphocytes (%) (Auto) 25 % (24-48) Monocytes (%) (Auto) 10 % (0-9) Eosinophils (%) (Auto) 1 % (0-3) Basophils (%) (Auto) 1 % (0-3) Neutrophils # (Auto) 3.4 x10^3/uL (1.8-7.7) Lymphocytes # (Auto) 1.3 x10^3/uL (1.0-4.8) Monocytes # (Auto) 0.6 x10^3/uL (0.0-1.1) Eosinophils # (Auto) 0.1 x10^3/uL (0.0-0.7) Basophils # (Auto) 0.0 x10^3/uL (0.0-0.2) Sodium Level 135 mmol/L (136-145) Potassium Level 4.9 mmol/L (3.5-5.1) Chloride Level 100 mmol/L (98-107) Carbon Dioxide Level 26 mmol/L (21-32) Anion Gap 9 (6-14) Blood Urea Nitrogen 51 mg/dL (8-26) Creatinine 2.3 mg/dL (0.7-1.3) Estimated GFR (Cockcroft-Gault) 34.2 Glucose Level 421 mg/dL (70-99) Calcium Level 9.2 mg/dL (8.5-10.1) Triglycerides Level 283 mg/dL (0-150) Cholesterol Level 161 mg/dL (0-200) LDL Cholesterol, Calculated 78 mg/dL (0-100) VLDL Cholesterol, Calculated 57 mg/dL (0-40) Non-HDL Cholesterol Calculated 135 mg/dL (0-129) HDL Cholesterol 26 mg/dL (40-60) Cholesterol/HDL Ratio 6.2 Amylase Level 99 U/L (25-115) Lipase 706 U/L (73-393) Test 05/10/21 07:26 Glucose (Fingerstick) 402 mg/dL (70-99) Medications Current Medications Dextrose/Sodium Chloride 1,000 ml @ 100 mls/hr Q10H IV Last administered on 05/09/21at 05:37; Start 05/08/21 at 15:30; Stop 05/09/21 at 10:21; Status DC Morphine Sulfate (Morphine Sulfate) 2 mg PRN Q4HRS PRN IVP PAIN; Start 05/08/21 at 15:30 Clonidine HCl (Catapres Tts-2) 1 patch WEEKLY TD Last administered on 05/09/21at 09:52; Start 05/09/21 at 09:00; Stop 05/09/21 at 10:21; Status DC Acetaminophen (Tylenol) 650 mg PRN Q6HRS PRN PO MILD PAIN / TEMP > 100.3'F; Start 05/08/21 at 15:30 Pantoprazole Sodium (PROTONIX VIAL for IV PUSH) 40 mg DAILYAC IVP Last administered on 05/09/21at 09:52; Start 05/08/21 at 16:00; Stop 05/09/21 at 10:21; Status DC Heparin Sodium (Porcine) (Heparin Sodium) 5,000 unit Q8HRS SQ Last administered on 05/10/21at 05:58; Start 05/08/21 at 22:00 Lorazepam (Ativan Inj) 1 mg OC PROC PRN IVP [address] Last administered on 05/08/21at 18:15; Start 05/08/21 at 16:00; Stop 05/09/21 at 23:59; Status DC Dextrose (Dextrose 50%-Water Syringe) 12.5 gm PRN Q15MIN PRN IV SEE COMMENTS; Start 05/08/21 at 16:00 Insulin Human Lispro (HumaLOG) 0-12 UNITS PRN Q6HRS PRN SQ SEE COMMENTS Last administered on 05/09/21at 09:55; Start 05/08/21 at 16:15; Stop 05/09/21 at 10:21; Status DC Ondansetron HCl (Zofran) 4 mg PRN Q6HRS PRN IVP NAUSEA/VOMITING Last administered on 05/09/21at 12:26; Start 05/09/21 at 10:15 Clonidine HCl (Catapres Tts-2) 2 patch WEEKLY TD ; Start 05/09/21 at 11:00 Insulin Human Lispro (HumaLOG) 0-12 UNITS BG 300-399... PRN Q6HRS PRN SQ SEE COMMENTS Last administered on 05/10/21at 08:59; Start 05/09/21 at 12:00 Amino Acids/ Electrolytes/ Dextrose 1,000 ml @ 80 mls/hr [id number] IV Last administered on 05/09/21at 20:54; Start 05/09/21 at 10:00 Furosemide (Lasix) 80 mg [id number] PO Last administered on 05/10/21at 08:51; Start 05/09/21 at 16:00 Atorvastatin Calcium (Lipitor) 40 mg QHS PO Last administered on 05/09/21at 20:53; Start 05/09/21 at 21:00 Metoclopramide HCl (Reglan) 5 mg QID PO Last administered on 05/10/21 08:53; Start 05/09/21 at 13:00 Insulin Glargine (Lantus Syringe) 30 unit QHS SQ Last administered on 05/09/21at 21:07; Start 05/09/21 at 21:00 Carvedilol (Coreg) 25 mg [id number] PO Last administered on 05/10/21at 08:52; Start 05/09/21 at 11:00 Metolazone (Zaroxolyn) 5 mg QMTH@0900 PO ; Start 05/11/21 at 09:00 Ondansetron HCl (Zofran) 4 mg PRN Q6HRS PRN IVP NAUSEA/VOMITING; Start 05/09/21 at 10:00 Allopurinol (Zyloprim) 100 mg DAILY PO Last administered on 05/10/21 08:51; Start 05/09/21 at 11:00 Gabapentin (Neurontin) 100 mg TID PO Last administered on 05/10/21at 08:51; Start 05/09/21 at 14:00 Pantoprazole Sodium (Protonix) 40 mg DAILYAC PO Last administered on 05/10/21 08:51; Start 05/09/21 at 11:30 Acetaminophen/ Hydrocodone Bitart (Lortab 5/325) 1 tab PRN Q4HRS PRN PO PAIN; Start 05/09/21 at 10:00 Amlodipine Besylate (Norvasc) 10 mg DAILY PO Last administered on 05/10/21at 08:53; Start 05/09/21 at 11:00 Multivitamins (Thera M Plus) 1 tab DAILY PO Last administered on 05/10/21at 08:50; Start 05/09/21 at 11:00 Clopidogrel Bisulfate (Plavix) 75 mg DAILYWBKFT PO Last administered on 05/10/21at 08:53; Start 05/09/21 at 11:00 Hydralazine HCl (Apresoline) 50 mg TID PO Last administered on 05/10/21at 08:52; Start 05/09/21 at 11:00 Isosorbide Mononitrate (Imdur) 60 mg DAILY PO Last administered on 05/10/21 08:51; Start 05/09/21 at 11:00 Aspirin (Elena Aspirin) 81 mg DAILY PO Last administered on 05/10/21 08:51; Start 05/09/21 at 11:00 Active Scripts Active Isosorbide Mononitrate Er (Isosorbide Mononitrate) 30 Mg Tab.er.24h 60 Mg PO DAILY Hydralazine Hcl 50 Mg Tablet 50 Mg PO TID Amlodipine Besylate 10 Mg Tablet 10 Mg PO DAILY Clonidine Tts-2 (Clonidine) 1 Each Patch.tdwk 2 Patch TD SA Carvedilol 25 Mg Tablet 1 Tab PO BID 30 Days Metoclopramide Hcl 10 Mg Tablet 10 Mg PO TIDACHC Children's Aspirin (Aspirin) 81 Mg Tab.chew 81 Mg PO DAILYWBKFT Reported Metolazone 5 Mg Tablet 1 Tab PO TWICE WEEKLY Levemir (Insulin Detemir) 100 Unit/1 Ml Vial 70 Unit SQ HS Novolog (Insulin Aspart) 100 Unit/1 Ml Cartridge 24 Unit SQ BIDAC Gabapentin (Gabapentin) 100 Mg Capsule 200 Mg PO TID Hydrocodone-Apap 5-325 (Hydrocodone Bit/Acetaminophen) 1 Each Tablet 1 Tab PO Q4HRS PRN Omeprazole 40 Mg Capsule.dr 1 Cap PO DAILY Clopidogrel (Clopidogrel Bisulfate) 75 Mg Tablet 1 Tab PO DAILY Allopurinol 100 Mg Tablet 1 Tab PO BID Furosemide 80 Mg Tablet 1 Tab PO BID Centrum Silver Tablet (Multivits-Min/Fa/Lycopene/Lut) 1 Each Tablet 1 Each PO Fish Oil (Half Way-3 Fatty Acids) 300 Mg Capsule 1,000 Mg PO DAILY Atorvastatin Calcium 40 Mg Tablet 40 Mg PO HS Vitals/I & O Vital Sign - Last 24 Hours 05/09/21 05/09/21 05/09/21 05/09/21 11:00 12:23 12:23 12:24 Temp 98.0 98.0 Pulse 78 78 78 78 Resp 18 B/P (MAP) 187/80 (115) 187/80 187/80 187/80 Pulse Ox 95 05/09/21 05/09/21 05/09/21 05/09/21 12:25 14:46 15:00 16:13 Temp 97.9 97.9 Pulse 78 73 78 Resp 18 B/P (MAP) 187/80 101/55 (70) 187/80 Pulse Ox 96 O2 Delivery Room Air 05/09/21 05/09/21 05/09/21 05/09/21 16:13 19:00 20:54 23:00 Temp 98.0 98.0 98.0 98.0 Pulse 78 71 78 70 Resp 18 18 B/P (MAP) 187/80 126/56 (79) 187/80 159/60 (93) Pulse Ox 99 99 O2 Delivery Room Air Room Air 05/10/21 05/10/21 05/10/21 05/10/21 03:00 07:00 08:51 08:52 Temp 98.0 97.5 98.0 97.5 Pulse 77 83 77 77 Resp 18 16 B/P (MAP) 144/46 (78) 150/56 (87) 144/46 144/46 Pulse Ox 99 95 O2 Delivery Room Air 05/10/21 05/10/21 08:52 08:53 Pulse 77 77 B/P (MAP) 144/46 144/46 Intake and Output 0 05/09/21 05/09/21 05/10/21 15:00 23:00 07:00 Output Total 185 ml Balance -185 ml Justifications for Admission Other Justification JONNY JOHN MD May 10, 2021 09:41
[2021-05-10 11:00] VITALS: BP 133/61
--- NOTE | 2021-05-10 12:30 | PDOC ---
G I PROGRESS NOTE Reason for Follow-up Abd pain/pancreatitis Subjective Bloating and nausea persist Physical Exam Lungs BS CV S1 S2 ABD +BS, distended, + epigastric tenderness to palpation Review of Relevant I have reviewed the following items puneet (where applicable) has been applied. Labs Laboratory Tests Test 05/08/21 16:53 05/08/21 17:45 05/08/21 20:35 05/09/21 06:25 Glucose (Fingerstick) 405 mg/dL (70-99) 296 mg/dL (70-99) White Blood Count 6.3 x10^3/uL (4.0-11.0) 5.7 x10^3/uL (4.0-11.0) Red Blood Count 3.91 x10^6/uL (4.30-5.70) 3.78 x10^6/uL (4.30-5.70) Hemoglobin 11.7 g/dL (13.0-17.5) 11.4 g/dL (13.0-17.5) Hematocrit 35.2 % (39.0-53.0) 34.2 % (39.0-53.0) Mean Corpuscular Volume 90 fL (79-100) 90 fL (79-100) Mean Corpuscular Hemoglobin 30 pg (25-35) 30 pg (25-35) Mean Corpuscular Hemoglobin Concent 33 g/dL (31-37) 34 g/dL (31-37) Red Cell Distribution Width 13.9 % (11.5-14.5) 13.8 % (11.5-14.5) Platelet Count 218 x10^3/uL (140-400) 212 x10^3/uL (140-400) Neutrophils (%) (Auto) 63 % (31-73) 57 % (31-73) Lymphocytes (%) (Auto) 25 % (24-48) 29 % (24-48) Monocytes (%) (Auto) 10 % (0-9) 11 % (0-9) Eosinophils (%) (Auto) 1 % (0-3) 2 % (0-3) Basophils (%) (Auto) 1 % (0-3) 1 % (0-3) Neutrophils # (Auto) 4.0 x10^3/uL (1.8-7.7) 3.3 x10^3/uL (1.8-7.7) Lymphocytes # (Auto) 1.6 x10^3/uL (1.0-4.8) 1.7 x10^3/uL (1.0-4.8) Monocytes # (Auto) 0.6 x10^3/uL (0.0-1.1) 0.6 x10^3/uL (0.0-1.1) Eosinophils # (Auto) 0.1 x10^3/uL (0.0-0.7) 0.1 x10^3/uL (0.0-0.7) Basophils # (Auto) 0.0 x10^3/uL (0.0-0.2) 0.1 x10^3/uL (0.0-0.2) Sodium Level 136 mmol/L (136-145) 141 mmol/L (136-145) Potassium Level 4.5 mmol/L (3.5-5.1) 4.2 mmol/L (3.5-5.1) Chloride Level 101 mmol/L (98-107) 103 mmol/L (98-107) Carbon Dioxide Level 27 mmol/L (21-32) 28 mmol/L (21-32) Anion Gap 8 (6-14) 10 (6-14) Blood Urea Nitrogen 51 mg/dL (8-26) 44 mg/dL (8-26) Creatinine 2.1 mg/dL (0.7-1.3) 2.0 mg/dL (0.7-1.3) Estimated GFR (Cockcroft-Gault) 38.0 40.2 BUN/Creatinine Ratio 24 (6-20) Glucose Level 407 mg/dL (70-99) 283 mg/dL (70-99) Calcium Level 9.5 mg/dL (8.5-10.1) 9.2 mg/dL (8.5-10.1) Magnesium Level 2.2 mg/dL (1.8-2.4) Total Bilirubin 0.4 mg/dL (0.2-1.0) Aspartate Amino Transf (AST/SGOT) 17 U/L (15-37) Alanine Aminotransferase (ALT/SGPT) 20 U/L (16-63) Alkaline Phosphatase 94 U/L (46-116) Total Protein 7.9 g/dL (6.4-8.2) Albumin 3.0 g/dL (3.4-5.0) Albumin/Globulin Ratio 0.6 (1.0-1.7) Amylase Level 174 U/L (25-115) Lipase 1815 U/L (73-393) Test 05/09/21 07:20 05/09/21 12:03 05/09/21 17:02 05/09/21 19:43 Glucose (Fingerstick) 305 mg/dL (70-99) 255 mg/dL (70-99) 251 mg/dL (70-99) 321 mg/dL (70-99) Test 05/10/21 06:25 05/10/21 07:26 05/10/21 11:54 White Blood Count 5.4 x10^3/uL (4.0-11.0) Red Blood Count 3.79 x10^6/uL (4.30-5.70) Hemoglobin 11.5 g/dL (13.0-17.5) Hematocrit 34.4 % (39.0-53.0) Mean Corpuscular Volume 91 fL (79-100) Mean Corpuscular Hemoglobin 30 pg (25-35) Mean Corpuscular Hemoglobin Concent 33 g/dL (31-37) Red Cell Distribution Width 14.1 % (11.5-14.5) Platelet Count 205 x10^3/uL (140-400) Neutrophils (%) (Auto) 63 % (31-73) Lymphocytes (%) (Auto) 25 % (24-48) Monocytes (%) (Auto) 10 % (0-9) Eosinophils (%) (Auto) 1 % (0-3) Basophils (%) (Auto) 1 % (0-3) Neutrophils # (Auto) 3.4 x10^3/uL (1.8-7.7) Lymphocytes # (Auto) 1.3 x10^3/uL (1.0-4.8) Monocytes # (Auto) 0.6 x10^3/uL (0.0-1.1) Eosinophils # (Auto) 0.1 x10^3/uL (0.0-0.7) Basophils # (Auto) 0.0 x10^3/uL (0.0-0.2) Sodium Level 135 mmol/L (136-145) Potassium Level 4.9 mmol/L (3.5-5.1) Chloride Level 100 mmol/L (98-107) Carbon Dioxide Level 26 mmol/L (21-32) Anion Gap 9 (6-14) Blood Urea Nitrogen 51 mg/dL (8-26) Creatinine 2.3 mg/dL (0.7-1.3) Estimated GFR (Cockcroft-Gault) 34.2 Glucose Level 421 mg/dL (70-99) Calcium Level 9.2 mg/dL (8.5-10.1) Triglycerides Level 283 mg/dL (0-150) Cholesterol Level 161 mg/dL (0-200) LDL Cholesterol, Calculated 78 mg/dL (0-100) VLDL Cholesterol, Calculated 57 mg/dL (0-40) Non-HDL Cholesterol Calculated 135 mg/dL (0-129) HDL Cholesterol 26 mg/dL (40-60) Cholesterol/HDL Ratio 6.2 Amylase Level 99 U/L (25-115) Lipase 706 U/L (73-393) Glucose (Fingerstick) 402 mg/dL (70-99) 414 mg/dL (70-99) Laboratory Tests Test 05/09/21 17:02 05/09/21 19:43 05/10/21 06:25 05/10/21 07:26 Glucose (Fingerstick) 251 mg/dL (70-99) 321 mg/dL (70-99) 402 mg/dL (70-99) White Blood Count 5.4 x10^3/uL (4.0-11.0) Red Blood Count 3.79 x10^6/uL (4.30-5.70) Hemoglobin 11.5 g/dL (13.0-17.5) Hematocrit 34.4 % (39.0-53.0) Mean Corpuscular Volume 91 fL (79-100) Mean Corpuscular Hemoglobin 30 pg (25-35) Mean Corpuscular Hemoglobin Concent 33 g/dL (31-37) Red Cell Distribution Width 14.1 % (11.5-14.5) Platelet Count 205 x10^3/uL (140-400) Neutrophils (%) (Auto) 63 % (31-73) Lymphocytes (%) (Auto) 25 % (24-48) Monocytes (%) (Auto) 10 % (0-9) Eosinophils (%) (Auto) 1 % (0-3) Basophils (%) (Auto) 1 % (0-3) Neutrophils # (Auto) 3.4 x10^3/uL (1.8-7.7) Lymphocytes # (Auto) 1.3 x10^3/uL (1.0-4.8) Monocytes # (Auto) 0.6 x10^3/uL (0.0-1.1) Eosinophils # (Auto) 0.1 x10^3/uL (0.0-0.7) Basophils # (Auto) 0.0 x10^3/uL (0.0-0.2) Sodium Level 135 mmol/L (136-145) Potassium Level 4.9 mmol/L (3.5-5.1) Chloride Level 100 mmol/L (98-107) Carbon Dioxide Level 26 mmol/L (21-32) Anion Gap 9 (6-14) Blood Urea Nitrogen 51 mg/dL (8-26) Creatinine 2.3 mg/dL (0.7-1.3) Estimated GFR (Cockcroft-Gault) 34.2 Glucose Level 421 mg/dL (70-99) Calcium Level 9.2 mg/dL (8.5-10.1) Triglycerides Level 283 mg/dL (0-150) Cholesterol Level 161 mg/dL (0-200) LDL Cholesterol, Calculated 78 mg/dL (0-100) VLDL Cholesterol, Calculated 57 mg/dL (0-40) Non-HDL Cholesterol Calculated 135 mg/dL (0-129) HDL Cholesterol 26 mg/dL (40-60) Cholesterol/HDL Ratio 6.2 Amylase Level 99 U/L (25-115) Lipase 706 U/L (73-393) Test 05/10/21 11:54 Glucose (Fingerstick) 414 mg/dL (70-99) Medications Current Medications Dextrose/Sodium Chloride 1,000 ml @ 100 mls/hr Q10H IV Last administered on 05/09/21at 05:37; Start 05/08/21 at 15:30; Stop 05/09/21 at 10:21; Status DC Morphine Sulfate (Morphine Sulfate) 2 mg PRN Q4HRS PRN IVP PAIN; Start 05/08/21 at 15:30 Clonidine HCl (Catapres Tts-2) 1 patch WEEKLY TD Last administered on 05/09/21at 09:52; Start 05/09/21 at 09:00; Stop 05/09/21 at 10:21; Status DC Acetaminophen (Tylenol) 650 mg PRN Q6HRS PRN PO MILD PAIN / TEMP > 100.3'F; Start 05/08/21 at 15:30 Pantoprazole Sodium (PROTONIX VIAL for IV PUSH) 40 mg DAILYAC IVP Last administered on 05/09/21at 09:52; Start 05/08/21 at 16:00; Stop 05/09/21 at 10:21; Status DC Heparin Sodium (Porcine) (Heparin Sodium) 5,000 unit Q8HRS SQ Last administered on 05/10/21at 05:58; Start 05/08/21 at 22:00 Lorazepam (Ativan Inj) 1 mg OC PROC PRN IVP [address] Last administered on 05/08/21at 18:15; Start 05/08/21 at 16:00; Stop 05/09/21 at 23:59; Status DC Dextrose (Dextrose 50%-Water Syringe) 12.5 gm PRN Q15MIN PRN IV SEE COMMENTS; Start 05/08/21 at 16:00 Insulin Human Lispro (HumaLOG) 0-12 UNITS PRN Q6HRS PRN SQ SEE COMMENTS Last administered on 05/09/21at 09:55; Start 05/08/21 at 16:15; Stop 05/09/21 at 10:21; Status DC Ondansetron HCl (Zofran) 4 mg PRN Q6HRS PRN IVP NAUSEA/VOMITING Last administered on 05/09/21at 12:26; Start 05/09/21 at 10:15; Stop 05/10/21 at 09:43; Status DC Clonidine HCl (Catapres Tts-2) 2 patch WEEKLY TD ; Start 05/09/21 at 11:00 Insulin Human Lispro (HumaLOG) 0-12 UNITS BG 300-399... PRN Q6HRS PRN SQ SEE COMMENTS Last administered on 05/10/21at 08:59; Start 05/09/21 at 12:00; Stop 05/10/21 at 09:35; Status DC Amino Acids/ Electrolytes/ Dextrose 1,000 ml @ 80 mls/hr [id number] IV Last administered on 05/09/21at 20:54; Start 05/09/21 at 10:00; Stop 05/10/21 at 09:35; Status DC Furosemide (Lasix) 80 mg [id number] PO Last administered on 05/10/21at 08:51; Start 05/09/21 at 16:00 Atorvastatin Calcium (Lipitor) 40 mg QHS PO Last administered on 05/09/21at 20:53; Start 05/09/21 at 21:00 Metoclopramide HCl (Reglan) 5 mg QID PO Last administered on 05/10/21at 08:53; Start 05/09/21 at 13:00 Insulin Glargine (Lantus Syringe) 30 unit QHS SQ Last administered on 05/09/21at 21:07; Start 05/09/21 at 21:00; Stop 05/10/21 at 09:35; Status DC Carvedilol (Coreg) 25 mg BIDWMEALS PO Last administered on 05/10/21at 08:52; Start 05/09/21 at 11:00 Metolazone (Zaroxolyn) 5 mg QMTH@0900 PO ; Start 05/11/21 at 09:00 Ondansetron HCl (Zofran) 4 mg PRN Q6HRS PRN IVP NAUSEA/VOMITING; Start 05/09/21 at 10:00 Allopurinol (Zyloprim) 100 mg DAILY PO Last administered on 05/10/21at 08:51; Start 05/09/21 at 11:00 Gabapentin (Neurontin) 100 mg TID PO Last administered on 05/10/21at 08:51; Start 05/09/21 at 14:00 Pantoprazole Sodium (Protonix) 40 mg DAILYAC PO Last administered on 05/10/21at 08:51; Start 05/09/21 at 11:30 Acetaminophen/ Hydrocodone Bitart (Lortab 5/325) 1 tab PRN Q4HRS PRN PO PAIN; Start 05/09/21 at 10:00 Amlodipine Besylate (Norvasc) 10 mg DAILY PO Last administered on 05/10/21at 0 8:53; Start 05/09/21 at 11:00 Multivitamins (Thera M Plus) 1 tab DAILY PO Last administered on 05/10/21at 08:50; Start 05/09/21 at 11:00 Clopidogrel Bisulfate (Plavix) 75 mg [id number] PO Last administered on 05/10/21at 08:53; Start 05/09/21 at 11:00 Hydralazine HCl (Apresoline) 50 mg TID PO Last administered on 05/10/21at 08:52; Start 05/09/21 at 11:00 Isosorbide Mononitrate (Imdur) 60 mg DAILY PO Last administered on 05/10/21at 08:51; Start 05/09/21 at 11:00 Aspirin (Elena Aspirin) 81 mg DAILY PO Last administered on 05/10/21at 08:51; Start 05/09/21 at 11:00 Insulin Glargine (Lantus Syringe) 50 unit QHS SQ ; Start 05/10/21 at 21:00 Insulin Human Lispro (HumaLOG) 0-12 UNITS BG 400-49... TIDAC SQ ; Start 05/10/21 at 11:30 Sodium Chloride 1,000 ml @ 75 mls/hr [id number] IV Last administered on 05/10/21at 10:49; Start 05/10/21 at 09:30 Insulin Human Lispro (HumaLOG) 14 units TIDAC SQ ; Start 05/10/21 at 11:30 Active Scripts Active Isosorbide Mononitrate Er (Isosorbide Mononitrate) 30 Mg Tab.er.24h 60 Mg PO DAILY Hydralazine Hcl 50 Mg Tablet 50 Mg PO TID Amlodipine Besylate 10 Mg Tablet 10 Mg PO DAILY Clonidine Tts-2 (Clonidine) 1 Each Patch.tdwk 2 Patch TD SA Carvedilol 25 Mg Tablet 1 Tab PO BID 30 Days Metoclopramide Hcl 10 Mg Tablet 10 Mg PO TIDACHC Children's Aspirin (Aspirin) 81 Mg Tab.chew 81 Mg PO DAILYWBKFT Reported Metolazone 5 Mg Tablet 1 Tab PO TWICE WEEKLY Levemir (Insulin Detemir) 100 Unit/1 Ml Vial 70 Unit SQ HS Novolog (Insulin Aspart) 100 Unit/1 Ml Cartridge 24 Unit SQ BIDAC Gabapentin (Gabapentin) 100 Mg Capsule 200 Mg PO TID Hydrocodone-Apap 5-325 (Hydrocodone Bit/Acetaminophen) 1 Each Tablet 1 Tab PO Q4HRS PRN Omeprazole 40 Mg Capsule.dr 1 Cap PO DAILY Clopidogrel (Clopidogrel Bisulfate) 75 Mg Tablet 1 Tab PO DAILY Allopurinol 100 Mg Tablet 1 Tab PO BID Furosemide 80 Mg Tablet 1 Tab PO BID Centrum Silver Tablet (Multivits-Min/Fa/Lycopene/Lut) 1 Each Tablet 1 Each PO Fish Oil ([place]-3 Fatty Acids) 300 Mg Capsule 1,000 Mg PO DAILY Atorvastatin Calcium 40 Mg Tablet 40 Mg PO HS Vitals/I & O Vital Sign - Last 24 Hours 05/09/21 05/09/21 05/09/21 05/09/21 14:46 15:00 16:13 16:13 Temp 97.9 97.9 Pulse 73 78 78 Resp 18 B/P (MAP) 101/55 (70) 187/80 187/80 Pulse Ox 96 O2 Delivery Room Air 05/09/21 05/09/21 05/09/21 05/10/21 19:00 20:54 23:00 03:00 Temp 98.0 98.0 98.0 98.0 98.0 98.0 Pulse 71 78 70 77 Resp 18 18 18 B/P (MAP) 126/56 (79) 187/80 159/60 (93) 144/46 (78) Pulse Ox 99 99 99 O2 Delivery Room Air Room Air Room Air 05/10/21 05/10/21 05/10/21 05/10/21 07:00 08:51 08:52 08:52 Temp 97.5 97.5 Pulse 83 77 77 77 Resp 16 B/P (MAP) 150/56 (87) 144/46 144/46 144/46 Pulse Ox 95 05/10/21 08:53 Pulse 77 B/P (MAP) 144/46 Intake and Output 05/09/21 05/09/21 05/10/21 15:00 23:00 07:00 Output Total 185 ml Balance -185 ml Problem List Epigastric abdominal pain- with DM/biochemical pancreatitis, will proceed with GES to assess for gastroparesis Justicifation of Admission Dx: Justifications for Admission: Justification of Admission Dx: Yes TIFFANY YOUNGER MD May 10, 2021 12:30
[2021-05-10] MEDS: INSULIN LISPRO 300 UNITS/3 ML VIAL. SQ SCH ×4 (13:03→16:30)
[2021-05-10 15:00] VITALS: BP 87/36
[2021-05-10 19:10] VITALS: BP 129/72
[2021-05-10] MEDS: INSULIN GLARGINE SYRINGE. SQ SCH (21:00)
[2021-05-10] MEDS: ATORVASTATIN CALCIUM 40 MG TABLET. PO SCH (22:30)
[2021-05-10 23:00] VITALS: BP 136/70
[2021-05-11 03:00] VITALS: BP 134/46
[2021-05-11 04:07] LABS: HEMOGLOBIN A1C 9.2 % (4.8-5.6)
[2021-05-11 04:52] LABS: BASO % 1 % (0-3); EOS # 0.1 x10^3/uL (0.0-0.7); EOS % 1 % (0-3); HEMATOCRIT 33.2 % (39.0-53.0); HEMOGLOBIN 10.7 g/dL (13.0-17.5); LYMPH # 1.3 x10^3/uL (1.0-4.8); LYMPH % 21 % (24-48); MEAN CORPUSCULAR HEMOGLOBIN 29 pg (25-35); MEAN CORPUSCULAR HGB CONC 32 g/dL (31-37); MEAN CORPUSCULAR VOLUME 90 fL (79-100); MONO # 0.6 x10^3/uL (0.0-1.1); MONO % 10 % (0-9); NEUT % 68 % (31-73); PLATELET COUNT 188 x10^3/uL (140-400); RED BLOOD COUNT 3.67 x10^6/uL (4.30-5.70)
[2021-05-11 05:06] LABS: CALCIUM 9.3 mg/dL (8.5-10.1); CREATININE 2.5 mg/dL (0.7-1.3); POTASSIUM 4.3 mmol/L (3.5-5.1)
[2021-05-11] MEDS: HEPARIN for SUB-Q USE 5,000 UNIT/ML VIAL. SQ SCH ×3 (06:00→21:29)
[2021-05-11 07:00] VITALS: BP 141/55
[2021-05-11] MEDS: INSULIN LISPRO 300 UNITS/3 ML VIAL. SQ SCH ×6 (07:30→17:39)
[2021-05-11] MEDS: CARVEDILOL 12.5 MG TABLET. PO SCH ×2 (08:00→17:19)
[2021-05-11] MEDS ORDERED: metOLazone 2.5 MG TABLET PO SCH (09:00)
[2021-05-11] MEDS: GABAPENTIN 100 MG CAPSULE. PO SCH ×3 (09:00→21:28)
[2021-05-11] MEDS: METOCLOPRAMIDE 10 MG TABLET. PO SCH ×4 (09:00→21:28)
[2021-05-11] MEDS: FUROSEMIDE 80 MG TABLET. PO SCH ×2 (09:00→16:00)
--- NOTE | 2021-05-11 09:37 | PDOC ---
PROGRESS NOTES Date of Service DATE: 05/11/21 TIME: 09:32 Subjective Subjective feels better. epigastric pain better 4/10 severerity. drank clear liquids okay. no nausea or vomiting. he had a BM yesterday. lab reviewed. lipase down to 400+. blood sugars and bp are better. discussed with her nurse Objective Objective Vital Signs Date Time Temp Pulse Resp B/P (MAP) Pulse Ox O2 Delivery O2 Flow Rate FiO2 05/11/21 07:00 98.4 84 18 141/55 (83) 95 98.4 05/11/21 03:00 Room Air Physical Exam Abdomen: Soft, Other (obese. mild epigastric tenderness. umbilical hernia) Heart: Regular rate, Normal S1, Normal S2 Extremities: No edema General: Alert HEENT: Atraumatic Lungs: Clear to auscultation Neck: Supple Neuro: Normal speech Psych/Mental Status: Mental status NL Skin: No rashes Assessment Assessment 1. Acute pancreatitis. idiopathic. clinically improved 2. Diabetes mellitus type 2, on insulin with nephropathy 3. Hypertension. 4. Hyperlipidemia. 5. Left kidney cancer, scheduled to have a partial left nephrectomy on 06/01/2021. 6. Morbid obesity. 7. Diabetic nephropathy. 8. Chronic kidney disease, stage 3B. 9. Chronic gout. 10. Peripheral arterial disease. 11. Moderate protein calorie malnutrition. RLE wound POA Plan Plan of Care gastric emptying study today per GI hold insulin until he can eat d/c metolazone and slight worsening of renal function continue furosemide continue metoclopramide continue wound care per wound care nurse d/c iv fluids later today if po fluid intake is okay anticipate starting soft solid diet tomorrow to give another day to rest pancreas labs tomorrow PT and OT clear liquids monitor blood sugars Comment Review of Relevant I have reviewed the following items puneet (where applicable) has been applied. Labs Laboratory Tests Test 05/09/21 12:03 05/09/21 17:02 05/09/21 19:43 05/10/21 06:25 Glucose (Fingerstick) 255 mg/dL (70-99) 251 mg/dL (70-99) 321 mg/dL (70-99) White Blood Count 5.4 x10^3/uL (4.0-11.0) Red Blood Count 3.79 x10^6/uL (4.30-5.70) Hemoglobin 11.5 g/dL (13.0-17.5) Hematocrit 34.4 % (39.0-53.0) Mean Corpuscular Volume 91 fL (79-100) Mean Corpuscular Hemoglobin 30 pg (25-35) Mean Corpuscular Hemoglobin Concent 33 g/dL (31-37) Red Cell Distribution Width 14.1 % (11.5-14.5) Platelet Count 205 x10^3/uL (140-400) Neutrophils (%) (Auto) 63 % (31-73) Lymphocytes (%) (Auto) 25 % (24-48) Monocytes (%) (Auto) 10 % (0-9) Eosinophils (%) (Auto) 1 % (0-3) Basophils (%) (Auto) 1 % (0-3) Neutrophils # (Auto) 3.4 x10^3/uL (1.8-7.7) Lymphocytes # (Auto) 1.3 x10^3/uL (1.0-4.8) Monocytes # (Auto) 0.6 x10^3/uL (0.0-1.1) Eosinophils # (Auto) 0.1 x10^3/uL (0.0-0.7) Basophils # (Auto) 0.0 x10^3/uL (0.0-0.2) Sodium Level 135 mmol/L (136-145) Potassium Level 4.9 mmol/L (3.5-5.1) Chloride Level 100 mmol/L (98-107) Carbon Dioxide Level 26 mmol/L (21-32) Anion Gap 9 (6-14) Blood Urea Nitrogen 51 mg/dL (8-26) Creatinine 2.3 mg/dL (0.7-1.3) Estimated GFR (Cockcroft-Gault) 34.2 Glucose Level 421 mg/dL (70-99) Hemoglobin A1c 9.2 % (4.8-5.6) Calcium Level 9.2 mg/dL (8.5-10.1) Triglycerides Level 283 mg/dL (0-150) Cholesterol Level 161 mg/dL (0-200) LDL Cholesterol, Calculated 78 mg/dL (0-100) VLDL Cholesterol, Calculated 57 mg/dL (0-40) Non-HDL Cholesterol Calculated 135 mg/dL (0-129) HDL Cholesterol 26 mg/dL (40-60) Cholesterol/HDL Ratio 6.2 Amylase Level 99 U/L (25-115) Lipase 706 U/L (73-393) Test 05/10/21 07:26 05/10/21 11:54 05/10/21 17:07 05/10/21 20:12 Glucose (Fingerstick) 402 mg/dL (70-99) 414 mg/dL (70-99) 171 mg/dL (70-99) 152 mg/dL (70-99) Test 05/11/21 03:55 05/11/21 07:41 White Blood Count 6.0 x10^3/uL (4.0-11.0) Red Blood Count 3.67 x10^6/uL (4.30-5.70) Hemoglobin 10.7 g/dL (13.0-17.5) Hematocrit 33.2 % (39.0-53.0) Mean Corpuscular Volume 90 fL (79-100) Mean Corpuscular Hemoglobin 29 pg (25-35) Mean Corpuscular Hemoglobin Concent 32 g/dL (31-37) Red Cell Distribution Width 14.0 % (11.5-14.5) Platelet Count 188 x10^3/uL (140-400) Neutrophils (%) (Auto) 68 % (31-73) Lymphocytes (%) (Auto) 21 % (24-48) Monocytes (%) (Auto) 10 % (0-9) Eosinophils (%) (Auto) 1 % (0-3) Basophils (%) (Auto) 1 % (0-3) Neutrophils # (Auto) 4.0 x10^3/uL (1.8-7.7) Lymphocytes # (Auto) 1.3 x10^3/uL (1.0-4.8) Monocytes # (Auto) 0.6 x10^3/uL (0.0-1.1) Eosinophils # (Auto) 0.1 x10^3/uL (0.0-0.7) Basophils # (Auto) 0.0 x10^3/uL (0.0-0.2) Sodium Level 135 mmol/L (136-145) Potassium Level 4.3 mmol/L (3.5-5.1) Chloride Level 100 mmol/L (98-107) Carbon Dioxide Level 24 mmol/L (21-32) Anion Gap 11 (6-14) Blood Urea Nitrogen 52 mg/dL (8-26) Creatinine 2.5 mg/dL (0.7-1.3) Estimated GFR (Cockcroft-Gault) 31.0 Glucose Level 238 mg/dL (70-99) Calcium Level 9.3 mg/dL (8.5-10.1) Amylase Level 93 U/L (25-115) Lipase 491 U/L (73-393) Glucose (Fingerstick) 239 mg/dL (70-99) Laboratory Tests Test 05/10/21 11:54 05/10/21 17:07 05/10/21 20:12 05/11/21 03:55 Glucose (Fingerstick) 414 mg/dL (70-99) 171 mg/dL (70-99) 152 mg/dL (70-99) White Blood Count 6.0 x10^3/uL (4.0-11.0) Red Blood Count 3.67 x10^6/uL (4.30-5.70) Hemoglobin 10.7 g/dL (13.0-17.5) Hematocrit 33.2 % (39.0-53.0) Mean Corpuscular Volume 90 fL (79-100) Mean Corpuscular Hemoglobin 29 pg (25-35) Mean Corpuscular Hemoglobin Concent 32 g/dL (31-37) Red Cell Distribution Width 14.0 % (11.5-14.5) Platelet Count 188 x10^3/uL (140-400) Neutrophils (%) (Auto) 68 % (31-73) Lymphocytes (%) (Auto) 21 % (24-48) Monocytes (%) (Auto) 10 % (0-9) Eosinophils (%) (Auto) 1 % (0-3) Basophils (%) (Auto) 1 % (0-3) Neutrophils # (Auto) 4.0 x10^3/uL (1.8-7.7) Lymphocytes # (Auto) 1.3 x10^3/uL (1.0-4.8) Monocytes # (Auto) 0.6 x10^3/uL (0.0-1.1) Eosinophils # (Auto) 0.1 x10^3/uL (0.0-0.7) Basophils # (Auto) 0.0 x10^3/uL (0.0-0.2) Sodium Level 135 mmol/L (136-145) Potassium Level 4.3 mmol/L (3.5-5.1) Chloride Level 100 mmol/L (98-107) Carbon Dioxide Level 24 mmol/L (21-32) Anion Gap 11 (6-14) Blood Urea Nitrogen 52 mg/dL (8-26) Creatinine 2.5 mg/dL (0.7-1.3) Estimated GFR (Cockcroft-Gault) 31.0 Glucose Level 238 mg/dL (70-99) Calcium Level 9.3 mg/dL (8.5-10.1) Amylase Level 93 U/L (25-115) Lipase 491 U/L (73-393) Test 05/11/21 07:41 Glucose (Fingerstick) 239 mg/dL (70-99) Medications Current Medications Dextrose/Sodium Chloride 1,000 ml @ 100 mls/hr Q10H IV Last administered on 05/09/21at 05:37; Start 05/08/21 at 15:30; Stop 05/09/21 at 10:21; Status DC Morphine Sulfate (Morphine Sulfate) 2 mg PRN Q4HRS PRN IVP PAIN; Start at 15:30 Clonidine HCl (Catapres Tts-2) 1 patch WEEKLY TD Last administered on 05/09/21at 09:52; Start 05/09/21 at 09:00; Stop 05/09/21 at 10:21; Status DC Acetaminophen (Tylenol) 650 mg PRN Q6HRS PRN PO MILD PAIN / TEMP > 100.3'F; Start 05/08/21 at 15:30 Pantoprazole Sodium (PROTONIX VIAL for IV PUSH) 40 mg DAILYAC IVP Last administered on 05/09/21at 09:52; Start 05/08/21 at 16:00; Stop 05/09/21 at 10:21; Status DC Heparin Sodium (Porcine) (Heparin Sodium) 5,000 unit Q8HRS SQ Last administered on 05/10/21at 22:32; Start 05/08/21 at 22:00 Lorazepam (Ativan Inj) 1 mg OC PROC PRN IVP [address] Last administere d on 05/08/21at 18:15; Start 05/08/21 at 16:00; Stop 05/09/21 at 23:59; Status DC Dextrose (Dextrose 50%-Water Syringe) 12.5 gm PRN Q15MIN PRN IV SEE COMMENTS; Start 05/08/21 at 16:00 Insulin Human Lispro (HumaLOG) 0-12 UNITS PRN Q6HRS PRN SQ SEE COMMENTS Last administered on 05/09/21at 09:55; Start 05/08/21 at 16:15; Stop 05/09/21 at 10:21; Status DC Ondansetron HCl (Zofran) 4 mg PRN Q6HRS PRN IVP NAUSEA/VOMITING Last administered on 05/09/21at 12:26; Start 05/09/21 at 10:15; Stop 05/10/21 at 0 9:43; Status DC Clonidine HCl (Catapres Tts-2) 2 patch WEEKLY TD ; Start 05/09/21 at 11:00 Insulin Human Lispro (HumaLOG) 0-12 UNITS BG 300-399... PRN Q6HRS PRN SQ SEE COMMENTS Last administered on 05/10/21at 08:59; Start 05/09/21 at 12:00; Stop 05/10/21 at 09:35; Status DC Amino Acids/ Electrolytes/ Dextrose 1,000 ml @ 80 mls/hr [id number] IV Last administered on 05/09/21at 20:54; Start 05/09/21 at 10:00; Stop 05/10/21 at 09:35; Status DC Furosemide (Lasix) 80 mg [id number] PO Last administered on 05/10/21at 18:10; Start 05/09/21 at 16:00 Atorvastatin Calcium (Lipitor) 40 mg QHS PO Last administered on 05/10/21 22:30; Start 05/09/21 at 21:00 Metoclopramide HCl (Reglan) 5 mg QID PO Last administered on 05/10/21at 18:11; Start 05/09/21 at 13:00 Insulin Glargine (Lantus Syringe) 30 unit QHS SQ Last administered on 05/09/21at 21:07; Start 05/09/21 at 21:00; Stop 05/10/21 at 09:35; Status DC Carvedilol (Coreg) 25 mg BIDWMEALS PO Last administered on 05/10/21 08:52; Start 05/09/21 at 11:00 Metolazone (Zaroxolyn) 5 mg QMTH@0900 PO ; Start 05/11/21 at 09:00 Ondansetron HCl (Zofran) 4 mg PRN Q6HRS PRN IVP NAUSEA/VOMITING; Start 05/09/21 at 10:00 Allopurinol (Zyloprim) 100 mg DAILY PO Last administered on 05/10/21 08:51; Start 05/09/21 at 11:00 Gabapentin (Neurontin) 100 mg TID PO Last administered on 05/10/21 22:30; Start 05/09/21 at 14:00 Pantoprazole Sodium (Protonix) 40 mg DAILYAC PO Last administered on 05/10/21 08:51; Start 05/09/21 at 11:30 Acetaminophen/ Hydrocodone Bitart (Lortab 5/325) 1 tab PRN Q4HRS PRN PO PAIN; Start 05/09/21 at 10:00 Amlodipine Besylate (Norvasc) 10 mg DAILY PO Last administered on 05/10/21 08:53; Start 05/09/21 at 11:00 Multivitamins (Thera M Plus) 1 tab DAILY PO Last administered on 05/10/21 08:50; Start 05/09/21 at 11:00 Clopidogrel Bisulfate (Plavix) 75 mg DAILYWBKFT PO Last administered on 05/10/21 08:53; Start 05/09/21 at 11:00 Hydralazine HCl (Apresoline) 50 mg TID PO Last administered on 05/10/21 22:31; Start 05/09/21 at 11:00 Isosorbide Mononitrate (Imdur) 60 mg DAILY PO Last administered on 05/10/21 08:51; Start 05/09/21 at 11:00 Aspirin (Elena Aspirin) 81 mg DAILY PO Last administered on 05/10/21 08:51; Start 05/09/21 at 11:00 Insulin Glargine (Lantus Syringe) 50 unit QHS SQ Last administered on 05/10/21at 21:00; Start 05/10/21 at 21:00 Insulin Human Lispro (HumaLOG) 0-12 UNITS BG 400-49... TIDAC SQ Last administered on 05/10/21at 13:03; Start 05/10/21 at 11:30 Sodium Chloride 1,000 ml @ 75 mls/hr [id number] IV Last administered on 05/10/21at 10:49; Start 05/10/21 at 09:30 Insulin Human Lispro (HumaLOG) 14 units TIDAC SQ Last administered on at 13:04; Start 05/10/21 at 11:30 Active Scripts Active Isosorbide Mononitrate Er (Isosorbide Mononitrate) 30 Mg Tab.er.24h 60 Mg PO DAILY Hydralazine Hcl 50 Mg Tablet 50 Mg PO TID Amlodipine Besylate 10 Mg Tablet 10 Mg PO DAILY Clonidine Tts-2 (Clonidine) 1 Each Patch.tdwk 2 Patch TD SA Carvedilol 25 Mg Tablet 1 Tab PO BID 30 Days Metoclopramide Hcl 10 Mg Tablet 10 Mg PO TIDACHC Children's Aspirin (Aspirin) 81 Mg Tab.chew 81 Mg PO DAILYWBKFT Reported Metolazone 5 Mg Tablet 1 Tab PO TWICE WEEKLY Levemir (Insulin Detemir) 100 Unit/1 Ml Vial 70 Unit SQ HS Novolog (Insulin Aspart) 100 Unit/1 Ml Cartridge 24 Unit SQ BIDAC Gabapentin (Gabapentin) 100 Mg Capsule 200 Mg PO TID Hydrocodone-Apap 5-325 (Hydrocodone Bit/Acetaminophen) 1 Each Tablet 1 Tab PO Q4HRS PRN Omeprazole 40 Mg Capsule.dr 1 Cap PO DAILY Clopidogrel (Clopidogrel Bisulfate) 75 Mg Tablet 1 Tab PO DAILY Allopurinol 100 Mg Tablet 1 Tab PO BID Furosemide 80 Mg Tablet 1 Tab PO BID Centrum Silver Tablet (Multivits-Min/Fa/Lycopene/Lut) 1 Each Tablet 1 Each PO Fish Oil (Hildebran-3 Fatty Acids) 300 Mg Capsule 1,000 Mg PO DAILY Atorvastatin Calcium 40 Mg Tablet 40 Mg PO HS Vitals/I & O Vital Sign - Last 24 Hours 05/10/21 05/10/21 05/10/21 05/10/21 11:00 14:46 15:00 17:00 Temp 98.6 98.4 98.6 98.4 Pulse 69 77 60 61 Resp 18 18 B/P (MAP) 133/61 (85) 144/46 87/36 (53) 104/33 Pulse Ox 99 96 05/10/21 05/10/21 05/10/21 05/11/21 19:10 22:31 23:00 03:00 Temp 98.1 98.1 98.1 98.1 Pulse 64 70 71 76 Resp 20 19 18 B/P (MAP) 129/72 (91) 132/76 136/70 (92) 134/46 (75) Pulse Ox 96 96 96 O2 Delivery Room Air Room Air Room Air 05/11/21 07:00 Temp 98.4 98.4 Pulse 84 Resp 18 B/P (MAP) 141/55 (83) Pulse Ox 95 Justifications for Admission Other Justification JONNY JOHN MD May 11, 2021 09:37
--- NOTE | 2021-05-11 09:43 | PDOC ---
DATE OF SERVICE DATE: 05/11/21 TIME: 09:43 SUBJECTIVE ROS No complaints, sitting up in chair, awaiting GES OBJECTIVE Vital Signs Vital Signs Date Time Temp Pulse Resp B/P (MAP) Pulse Ox O2 Delivery O2 Flow Rate FiO2 05/11/21 07:00 98.4 84 18 141/55 (83) 95 98.4 05/11/21 03:00 Room Air PHYSICAL EXAM Physical Exam GENERAL APPEARANCE: NAD , HEENT: OM moist NECK: supple LUNGS: Clear.non labored CARDIAC: RRR ABDOMEN: obese , nontender. Bowel sounds present. EXTREMITIES: : Changes of CVI + bilat LE NEURO - No gross abnorma No murrieta , No CVA or SP tenderness Skin - Hyperpigmentation/Changes of CVI present bilateral lower extremities. Neuro grossly normal DIAGNOSIS/ASSESSMENT Assessment & Plan BEN - Vasomotor, Hold Metolazone, Decrease Lasix to QD from BID, daily standing weight , titrate diuretics based on edema, wt, BP and symptoms supportive care, strict I/O, avoid nephrotoxins . keep neph OP FU appt CKD stage 3 A /B - baseline 1.6 -1.9, Renal US in 2013 reported small right kidney.In the setting of diabetes mellitus and hypertension.UA in jun 2020-No significant Proteinuria . Follows with me as OP Acute pancreatitis: Defer to GI Hx of Cellulitis right Lower Extrem- ID and vascular following. S/P Abdominal aortogram with CO2 angiography. Right lower extremity angiography- no severe arterial insufficiency in right leg recommend aggressive compression and elevation of both legs t Lt kidney mass Patient Following with urology at [facility] History of CAD - s/p cardiac cath 11/10/2020 -Severe single-vessel coronary disease, 100% chronic total occlusion involving the right coronary artery with very good distal reconstitution from left to right collaterals Diabetes mellitus type 2, uncontrolled with hyperglycemia Hypertension: Uncontrolled, titrate antihypertensives Peripheral arterial disease with a history of a left femoral popliteal angioplasty and stent, 2014. COMMENT/RELEVANT DATA Meds Current Medications Medications (Trade) Dose Ordered Sig/Jeanie Start Time Stop Time Status Last Admin Dose Admin Acetaminophen (Tylenol) 650 mg PRN Q6HRS PRN 05/08/21 15:30 Acetaminophen/ Hydrocodone Bitart (Lortab 5/325) 1 tab PRN Q4HRS PRN 05/09/21 10:00 Allopurinol (Zyloprim) 100 mg DAILY 05/09/21 11:00 05/10/21 08:51 100 MG Amino Acids/ Electrolytes/ Dextrose 1,000 ml @ 80 mls/hr [id number] 05/09/21 10:00 05/10/21 09:35 DC 05/09/21 20:54 80 MLS/HR Amlodipine Besylate (Norvasc) 10 mg DAILY 05/09/21 11:00 05/10/21 08:53 10 MG Aspirin (Elena Aspirin) 81 mg DAILY 05/09/21 11:00 05/10/21 08:51 81 MG Atorvastatin Calcium (Lipitor) 40 mg QHS 05/09/21 21:00 05/10/21 22:30 40 MG Carvedilol (Coreg) 25 mg BIDWMEALS 05/09/21 11:00 05/10/21 08:52 25 MG Clonidine HCl (Catapres Tts-2) 2 patch WEEKLY 05/09/21 11:00 Clopidogrel Bisulfate (Plavix) 75 mg DAILYWBKFT 05/09/21 11:00 05/10/21 08:53 75 MG Dextrose (Dextrose 50%-Water Syringe) 12.5 gm PRN Q15MIN PRN 05/08/21 16:00 Dextrose/Sodium Chloride 1,000 ml @ 100 mls/hr Q10H 05/08/21 15:30 05/09/21 10:21 DC 05/09/21 05:37 100 MLS/HR Furosemide (Lasix) 80 mg [id number] 05/09/21 16:00 05/10/21 18:10 80 MG Gabapentin (Neurontin) 100 mg TID 05/09/21 14:00 05/10/21 22:30 100 MG Heparin Sodium (Porcine) (Heparin Sodium) 5,000 unit Q8HRS 05/08/21 22:00 05/10/21 22:32 5,000 UNIT Hydralazine HCl (Apresoline) 50 mg TID 05/09/21 11:00 05/10/21 22:31 50 MG Insulin Glargine (Lantus Syringe) 50 unit QHS 05/10/21 21:00 05/10/21 21:00 50 UNIT Insulin Human Lispro (HumaLOG) 14 units TIDAC 05/10/21 11:30 05/10/21 13:04 14 UNITS Isosorbide Mononitrate (Imdur) 60 mg DAILY 05/09/21 11:00 05/10/21 08:51 60 MG Lorazepam (Ativan Inj) 1 mg OC PROC PRN 05/08/21 16:00 05/09/21 23:59 DC 05/08/21 18:15 1 MG Metoclopramide HCl (Reglan) 5 mg QID 05/09/21 13:00 05/10/21 18:11 5 MG Metolazone (Zaroxolyn) 5 mg QMTH@0900 05/11/21 09:00 05/11/21 09:32 DC Morphine Sulfate (Morphine Sulfate) 2 mg PRN Q4HRS PRN 05/08/21 15:30 Multivitamins (Thera M Plus) 1 tab DAILY 05/09/21 11:00 05/10/21 08:50 1 TAB Ondansetron HCl (Zofran) 4 mg PRN Q6HRS PRN 05/09/21 10:00 Pantoprazole Sodium (PROTONIX VIAL for IV PUSH) 40 mg DAILYAC 05/08/21 16:00 05/09/21 10:21 DC 05/09/21 09:52 40 MG Pantoprazole Sodium (Protonix) 40 mg DAILYAC 05/09/21 11:30 05/10/21 08:51 40 MG Sodium Chloride 1,000 ml @ 75 mls/hr [id number] 05/10/21 09:30 05/10/21 10:49 75 MLS/HR Lab Laboratory Tests Test 05/10/21 11:54 05/10/21 17:07 05/10/21 20:12 05/11/21 03:55 Glucose (Fingerstick) 414 mg/dL (70-99) 171 mg/dL (70-99) 152 mg/dL (70-99) White Blood Count 6.0 x10^3/uL (4.0-11.0) Red Blood Count 3.67 x10^6/uL (4.30-5.70) Hemoglobin 10.7 g/dL (13.0-17.5) Hematocrit 33.2 % (39.0-53.0) Mean Corpuscular Volume 90 fL (79-100) Mean Corpuscular Hemoglobin 29 pg (25-35) Mean Corpuscular Hemoglobin Concent 32 g/dL (31-37) Red Cell Distribution Width 14.0 % (11.5-14.5) Platelet Count 188 x10^3/uL (140-400) Neutrophils (%) (Auto) 68 % (31-73) Lymphocytes (%) (Auto) 21 % (24-48) Monocytes (%) (Auto) 10 % (0-9) Eosinophils (%) (Auto) 1 % (0-3) Basophils (%) (Auto) 1 % (0-3) Neutrophils # (Auto) 4.0 x10^3/uL (1.8-7.7) Lymphocytes # (Auto) 1.3 x10^3/uL (1.0-4.8) Monocytes # (Auto) 0.6 x10^3/uL (0.0-1.1) Eosinophils # (Auto) 0.1 x10^3/uL (0.0-0.7) Basophils # (Auto) 0.0 x10^3/uL (0.0-0.2) Sodium Level 135 mmol/L (136-145) Potassium Level 4.3 mmol/L (3.5-5.1) Chloride Level 100 mmol/L (98-107) Carbon Dioxide Level 24 mmol/L (21-32) Anion Gap 11 (6-14) Blood Urea Nitrogen 52 mg/dL (8-26) Creatinine 2.5 mg/dL (0.7-1.3) Estimated GFR (Cockcroft-Gault) 31.0 Glucose Level 238 mg/dL (70-99) Calcium Level 9.3 mg/dL (8.5-10.1) Amylase Level 93 U/L (25-115) Lipase 491 U/L (73-393) Test 05/11/21 07:41 Glucose (Fingerstick) 239 mg/dL (70-99) Results All relevant outside records, renal labs, imaging studies, telemetry/EKG's were reviewed. Justicifation of Admission Dx: Justifications for Admission: Justification of Admission Dx: Yes CORINNA BOWLES MD May 11, 2021 09:43
--- NOTE | 2021-05-11 10:09 | PDOC ---
Date of Service: DATE: 05/11/21 TIME: 09:53 Subjective: Subjective: Feels better. No n/v. Epigastric pain is 4/10. Wants something other than clear liquids. Wants cream of wheat. Says he stooled yesterday. Objective: Objective: D/w nurse - NPO for GES. Reviewed past labs - normal iron and B12 in 2016, also negative Hep panel then. CA19-9 normal in 2018. H/o mildly elevated lipase. A1c 9.2 this month. Improved on Reglan in past? Vital Signs: Vital Signs Date Time Temp Pulse Resp B/P (MAP) Pulse Ox O2 Delivery O2 Flow Rate FiO2 05/11/21 07:00 98.4 84 18 141/55 (83) 95 98.4 05/11/21 03:00 Room Air Labs: Laboratory Tests Test 05/10/21 11:54 05/10/21 17:07 05/10/21 20:12 05/11/21 03:55 Glucose (Fingerstick) 414 mg/dL 171 mg/dL 152 mg/dL White Blood Count 6.0 x10^3/uL Red Blood Count 3.67 x10^6/uL Hemoglobin 10.7 g/dL Hematocrit 33.2 % Mean Corpuscular Volume 90 fL Mean Corpuscular Hemoglobin 29 pg Mean Corpuscular Hemoglobin Concent 32 g/dL Red Cell Distribution Width 14.0 % Platelet Count 188 x10^3/uL Neutrophils (%) (Auto) 68 % Lymphocytes (%) (Auto) 21 % Monocytes (%) (Auto) 10 % Eosinophils (%) (Auto) 1 % Basophils (%) (Auto) 1 % Neutrophils # (Auto) 4.0 x10^3/uL Lymphocytes # (Auto) 1.3 x10^3/uL Monocytes # (Auto) 0.6 x10^3/uL Eosinophils # (Auto) 0.1 x10^3/uL Basophils # (Auto) 0.0 x10^3/uL Sodium Level 135 mmol/L Potassium Level 4.3 mmol/L Chloride Level 100 mmol/L Carbon Dioxide Level 24 mmol/L Anion Gap 11 Blood Urea Nitrogen 52 mg/dL Creatinine 2.5 mg/dL Estimated GFR (Cockcroft-Gault) 31.0 Glucose Level 238 mg/dL Calcium Level 9.3 mg/dL Amylase Level 93 U/L Lipase 491 U/L Test 05/11/21 07:41 Glucose (Fingerstick) 239 mg/dL Imaging: EGD 01/2018 E--Healed reflux at 44cm G--Some retained soup (ate part of bowl). Otherwise normal.\ D--Normal to second portion. IMP: Healed reflux, baseline grade indeterminate. Gastroparesis? GES 01/2018 1 hour-47 percent (normal is less than 90 percent) 2 hours-33 percent (normal is less than 60 percent) 3 hours-19 percent (normal is less than 30 percent) 4 hours-11 percent (normal is less than 10 percent) A normal T1/2 of 63 minutes was also calculated. IMPRESSION: There was slightly increased gastric retention at 4 hours. The remainder of the study was within normal limits. HIDA 01/2018 Impression: 1. No evidence of cystic duct obstruction. 2. Normal gallbladder ejection fraction (60%). Abd US 05/09/21 Impression: Fatty infiltration of the liver. No evidence of gallbladder disease. AAS 05/08/21 IMPRESSION: Nonobstructive gas pattern. CT A/P 05/08/21 IMPRESSION: Questionable slight swelling of the pancreatic head compared to the prior exam. Correlation with pancreatic enzymes would be useful. Possible slight regression of left renal mass. Slight increased size of left retroperitoneal lymph node. PE: GEN: NAD - standing in restroom LUNGS: clear, room air HEART: RRR ABD: epigastric discomfort NEURO/PSYCH: A & O 3 A/P: Upper abd discomfort, n/v - better H/o GERD Mildly elevated lipase, ?abnormal pancreatic head on CT Anemia - Hgb bit below baseline, on Plavix and ASA DM, CKD, left kidney cancer scheduled for partial nephrectomy 06/01/21 -- Similar symptoms as in the past. Seems to have GES today. Okay to advance to full liquids after that. Agree w/ PPI. Justicifation of Admission Dx: Justifications for Admission: Justification of Admission Dx: Yes RJ HAYS May 11, 2021 10:09
--- NOTE | 2021-05-11 10:41 | NUR ---
SW following. Discussed with RN, pt from home with , room air, clear liquid diet. GI and Surgery following. Gastric emptying study today. Therapy recommending home. RN advised no SW needs at this time. SW will continue to follow.
[2021-05-11 11:00] VITALS: BP 165/91
[2021-05-11 15:00] VITALS: BP 178/74
--- NOTE | 2021-05-11 16:22 | RAD ---
EXAM: NUCLEAR GASTRIC EMPTYING SCAN. HISTORY: Abdominal pain and nausea. COMPARISON: None. TECHNIQUE: Serial static images were obtained over the stomach following oral administration of 1.6 m Ci of 99m-Tc sulfur colloid in a solid meal. FINDINGS: The stomach appears normal in contour. There is clearance of activity into the small bowel. The remaining fraction of gastric activity is as follows. 1 hour 71% (normal range 34.8-91%) 2 hour 56% (normal range 2.7-60%) 3 hour 45% (normal range 0.5-28%) 4 hour 39% (normal range 0-10%) IMPRESSION: 1. Delayed gastric emptying. Electronically signed by: Coy العلي MD (05/11/2021 4:19 PM) [facility]
--- NOTE | 2021-05-11 17:12 | NUR ---
Wound/Ostomy Care Wound Type/Assessment: Patient seen per wound care consult. See wound assessment. Patient has a stasis ulcer to the right lateral lower leg. Wound cleansed and assessed. Patient stated this is his first VLU to lower extremities. Wound is minimal and has good red granulation throughout with minimal slough. Treatment Recommendations/Plan: Recommendations for xeroform gauze and foam dressing. Change on and Tuesday. Wound care will follow up on 05/19/21. Dressings applied. Education provided: Patient educated on dressing changes and PU prevention. Offloading surface/device: N/A Recommended Referrals/Tests: Possible arterial Doppler or venous reflux if wound does not improve. Discharge Recommendations for dressings: Dressing change instructions left in room. No other wounds noted. Patient in chair and call light in reach.
[2021-05-11] MEDS: ASPIRIN 325 MG TABLET PO SCH (17:18)
[2021-05-11] MEDS: PANTOPRAZOLE 40 MG TABLET.DR. PO SCH (17:19)
[2021-05-11] MEDS: MULTIVITAMIN with MINERAL TABLET. PO SCH (17:19)
[2021-05-11] MEDS: CLOPIDOGREL BISULFATE 75 MG TABLET PO SCH (17:20)
[2021-05-11] MEDS: ISOSORBIDE MONONITRATE ER 30 MG TAB.ER.24H PO SCH (17:21)
[2021-05-11] MEDS: ALLOPURINOL 100 MG TABLET. PO SCH (17:21)
[2021-05-11 19:00] VITALS: BP 146/59
[2021-05-11] MEDS: ATORVASTATIN CALCIUM 40 MG TABLET. PO SCH (21:28)
[2021-05-11] MEDS: INSULIN GLARGINE SYRINGE. SQ SCH (21:30)
[2021-05-11 23:00] VITALS: BP 122/62
[2021-05-12 03:00] VITALS: BP 125/45
[2021-05-12] MEDS: HEPARIN for SUB-Q USE 5,000 UNIT/ML VIAL. SQ SCH (05:47)
[2021-05-12 07:00] VITALS: BP 142/61
[2021-05-12 08:03] LABS: BASO % 1 % (0-3); EOS # 0.1 x10^3/uL (0.0-0.7); EOS % 1 % (0-3); HEMATOCRIT 30.8 % (39.0-53.0); HEMOGLOBIN 10.2 g/dL (13.0-17.5); LYMPH # 1.2 x10^3/uL (1.0-4.8); LYMPH % 25 % (24-48); MEAN CORPUSCULAR HEMOGLOBIN 30 pg (25-35); MEAN CORPUSCULAR HGB CONC 33 g/dL (31-37); MEAN CORPUSCULAR VOLUME 90 fL (79-100); MONO # 0.7 x10^3/uL (0.0-1.1); MONO % 14 % (0-9); NEUT % 60 % (31-73); PLATELET COUNT 175 x10^3/uL (140-400); RED BLOOD COUNT 3.44 x10^6/uL (4.30-5.70); RED CELL DISTRIBUTION WIDTH 14.1 % (11.5-14.5)
[2021-05-12 08:29] LABS: CALCIUM 8.8 mg/dL (8.5-10.1); CREATININE 2.2 mg/dL (0.7-1.3); POTASSIUM 4.1 mmol/L (3.5-5.1)
[2021-05-12] MEDS: ALLOPURINOL 100 MG TABLET. PO SCH (08:40)
[2021-05-12] MEDS: ISOSORBIDE MONONITRATE ER 30 MG TAB.ER.24H PO SCH (08:41)
[2021-05-12] MEDS: CARVEDILOL 12.5 MG TABLET. PO SCH (08:41)
[2021-05-12] MEDS: GABAPENTIN 100 MG CAPSULE. PO SCH (08:42)
[2021-05-12] MEDS: METOCLOPRAMIDE 10 MG TABLET. PO SCH (08:42)
[2021-05-12] MEDS: ASPIRIN 325 MG TABLET PO SCH (08:42)
[2021-05-12] MEDS: PANTOPRAZOLE 40 MG TABLET.DR. PO SCH (08:43)
[2021-05-12] MEDS: MULTIVITAMIN with MINERAL TABLET. PO SCH (08:43)
[2021-05-12] MEDS: FUROSEMIDE 80 MG TABLET. PO SCH (08:43)
[2021-05-12] MEDS: CLOPIDOGREL BISULFATE 75 MG TABLET PO SCH (08:43)
[2021-05-12] MEDS: INSULIN LISPRO 300 UNITS/3 ML VIAL. SQ SCH ×3 (08:51→11:30)
--- NOTE | 2021-05-12 09:37 | PDOC ---
DATE OF SERVICE DATE: 05/12/21 TIME: 09:35 SUBJECTIVE ROS No complaints OBJECTIVE Vital Signs Vital Signs Date Time Temp Pulse Resp B/P (MAP) Pulse Ox O2 Delivery O2 Flow Rate FiO2 05/12/21 08:43 72 142/61 05/12/21 07:00 98.6 20 96 Room Air 98.6 PHYSICAL EXAM Physical Exam GENERAL APPEARANCE: NAD , HEENT: OM moist NECK: supple LUNGS: Clear.non labored CARDIAC: RRR ABDOMEN: obese , nontender. Bowel sounds present. EXTREMITIES: : Changes of CVI + bilat LE NEURO - No gross abnorma No murrieta , No CVA or SP tenderness Skin - Hyperpigmentation/Changes of CVI present bilateral lower extremities. Neuro grossly normal DIAGNOSIS/ASSESSMENT Assessment & Plan BEN - Vasomotor, Hold Metolazone, Decrease Lasix to QD from BID, Last evening dose held , Creatinine trending down , daily standing weight , titrate diuretics based on edema, wt, BP and symptoms - educate pt at dc as well(I had dw him at every viisit in my office) supportive care, strict I/O, avoid nephrotoxins . keep neph OP FU appt . FU with Card as OP as indicated CKD stage 3 A /B - baseline 1.6 -1.9, Renal US in 2013 reported small right kidney.In the setting of diabetes mellitus and hypertension.UA in jun 2020-No si gnificant Proteinuria . Follows with me as OP Acute pancreatitis: Defer to GI Hx of Cellulitis right Lower Extrem- ID and vascular following. S/P Abdominal aortogram with CO2 angiography. Right lower extremity angiography- no severe arterial insufficiency in right leg recommend aggressive compression and elevation of both legs t Lt kidney mass Patient Following with urology at [facility] History of CAD - s/p cardiac cath 11/10/2020 -Severe single-vessel coronary disease, 100% chronic total occlusion involving the right coronary artery with very good distal reconstitution from left to right collaterals Diabetes mellitus type 2, uncontrolled with hyperglycemia Hypertension: Uncontrolled, titrate antihypertensives Peripheral arterial disease with a history of a left femoral popliteal angioplasty and stent, 2014. COMMENT/RELEVANT DATA Meds Current Medications Medications (Trade) Dose Ordered Sig/Jeanie Start Time Stop Time Status Last Admin Dose Admin Acetaminophen (Tylenol) 650 mg PRN Q6HRS PRN 05/08/21 15:30 Acetaminophen/ Hydrocodone Bitart (Lortab 5/325) 1 tab PRN Q4HRS PRN 05/09/21 10:00 Allopurinol (Zyloprim) 100 mg DAILY 05/09/21 11:00 05/12/21 08:40 100 MG Amino Acids/ Electrolytes/ Dextrose 1,000 ml @ 80 mls/hr [id number] 05/09/21 10:00 05/10/21 09:35 DC 05/09/21 20:54 80 MLS/HR Amlodipine Besylate (Norvasc) 10 mg DAILY 05/09/21 11:00 05/12/21 08:42 10 MG Aspirin (Elena Aspirin) 81 mg DAILY 05/09/21 11:00 05/12/21 08:42 81 MG Atorvastatin Calcium (Lipitor) 40 mg QHS 05/09/21 21:00 05/11/21 21:28 40 MG Carvedilol (Coreg) 25 mg BIDWMEALS 05/09/21 11:00 05/12/21 08:41 25 MG Clonidine HCl (Catapres Tts-2) 2 patch WEEKLY 05/09/21 11:00 Clopidogrel Bisulfate (Plavix) 75 mg DAILYWBKFT 05/09/21 11:00 05/12/21 08:43 75 MG Dextrose (Dextrose 50%-Water Syringe) 12.5 gm PRN Q15MIN PRN 05/08/21 16:00 Dextrose/Sodium Chloride 1,000 ml @ 100 mls/hr Q10H 05/08/21 15:30 05/09/21 10:21 DC 05/09/21 05:37 100 MLS/HR Furosemide (Lasix) 80 mg [id number] 05/09/21 16:00 05/12/21 08:43 80 MG Gabapentin (Neurontin) 100 mg TID 05/09/21 14:00 05/12/21 08:42 100 MG Heparin Sodium (Porcine) (Heparin Sodium) 5,000 unit Q8HRS 05/08/21 22:00 05/12/21 05:47 5,000 UNIT Hydralazine HCl (Apresoline) 50 mg TID 05/09/21 11:00 05/12/21 08:43 50 MG Insulin Glargine (Lantus Syringe) 50 unit QHS 05/10/21 21:00 05/11/21 21:30 50 UNIT Insulin Human Lispro (HumaLOG) 14 units TIDAC 05/10/21 11:30 05/12/21 08:51 14 UNITS Isosorbide Mononitrate (Imdur) 60 mg DAILY 05/09/21 11:00 05/12/21 08:41 60 MG Lorazepam (Ativan Inj) 1 mg OC PROC PRN 05/08/21 16:00 05/09/21 23:59 DC 05/08/21 18:15 1 MG Metoclopramide HCl (Reglan) 5 mg QID 05/09/21 13:00 05/12/21 08:42 5 MG Metolazone (Zaroxolyn) 5 mg QMTH@0900 05/11/21 09:00 05/11/21 09:32 DC Morphine Sulfate (Morphine Sulfate) 2 mg PRN Q4HRS PRN 05/08/21 15:30 Multivitamins (Thera M Plus) 1 tab DAILY 05/09/21 11:00 05/12/21 08:43 1 TAB Ondansetron HCl (Zofran) 4 mg PRN Q6HRS PRN 05/09/21 10:00 Pantoprazole Sodium (PROTONIX VIAL for IV PUSH) 40 mg DAILYAC 05/08/21 16:00 05/09/21 10:21 DC 05/09/21 09:52 40 MG Pantoprazole Sodium (Protonix) 40 mg DAILYAC 05/09/21 11:30 05/12/21 08:43 40 MG Sodium Chloride 1,000 ml @ 75 mls/hr [id number] 05/10/21 09:30 05/11/21 17:45 DC 05/10/21 10:49 75 MLS/HR Lab Laboratory Tests Test 05/11/21 12:22 05/11/21 17:13 05/11/21 20:41 05/12/21 06:25 Glucose (Fingerstick) 300 mg/dL (70-99) 307 mg/dL (70-99) 319 mg/dL (70-99) White Blood Count 5.0 x10^3/uL (4.0-11.0) Red Blood Count 3.44 x10^6/uL (4.30-5.70) Hemoglobin 10.2 g/dL (13.0-17.5) Hematocrit 30.8 % (39.0-53.0) Mean Corpuscular Volume 90 fL (79-100) Mean Corpuscular Hemoglobin 30 pg (25-35) Mean Corpuscular Hemoglobin Concent 33 g/dL (31-37) Red Cell Distribution Width 14.1 % (11.5-14.5) Platelet Count 175 x10^3/uL (140-400) Neutrophils (%) (Auto) 60 % (31-73) Lymphocytes (%) (Auto) 25 % (24-48) Monocytes (%) (Auto) 14 % (0-9) Eosinophils (%) (Auto) 1 % (0-3) Basophils (%) (Auto) 1 % (0-3) Neutrophils # (Auto) 3.0 x10^3/uL (1.8-7.7) Lymphocytes # (Auto) 1.2 x10^3/uL (1.0-4.8) Monocytes # (Auto) 0.7 x10^3/uL (0.0-1.1) Eosinophils # (Auto) 0.1 x10^3/uL (0.0-0.7) Basophils # (Auto) 0.0 x10^3/uL (0.0-0.2) Sodium Level 136 mmol/L (136-145) Potassium Level 4.1 mmol/L (3.5-5.1) Chloride Level 102 mmol/L (98-107) Carbon Dioxide Level 26 mmol/L (21-32) Anion Gap 8 (6-14) Blood Urea Nitrogen 42 mg/dL (8-26) Creatinine 2.2 mg/dL (0.7-1.3) Estimated GFR (Cockcroft-Gault) 36.0 Glucose Level 312 mg/dL (70-99) Calcium Level 8.8 mg/dL (8.5-10.1) Lipase 411 U/L (73-393) Results All relevant outside records, renal labs, imaging studies, telemetry/EKG's were reviewed. Justicifation of Admission Dx: Justifications for Admission: Justification of Admission Dx: Yes CORINNA BOWLES MD May 12, 2021 09:36
[2021-05-12] MEDS ORDERED: FUROSEMIDE 80 MG TABLET. PO SCH ×2 (09:45→16:00)
--- NOTE | 2021-05-12 09:54 | PDOC ---
PROGRESS NOTES Date of Service DATE: 05/12/21 TIME: 09:50 Subjective Subjective tolerated full liquids yesterday and denies nausea or vomiting and has minimal abdominal discomfort. eating a cracker. blood sugars high and will increase insulin. lab reviewed. has delayed gastric emptying on GI emptying study. takes reglan. Objective Objective Vital Signs Date Time Temp Pulse Resp B/P (MAP) Pulse Ox O2 Delivery O2 Flow Rate FiO2 05/12/21 08:43 72 142/61 05/12/21 07:00 98.6 20 96 Room Air 98.6 Physical Exam Abdomen: Normal bowel sounds, Soft, Other (minimal epigstric tenderness. no guarding) Extremities: No edema General: Alert HEENT: Atraumatic Lungs: Clear to auscultation Neuro: Normal speech Psych/Mental Status: Mental status NL Skin: No rashes Assessment Assessment 1. Acute pancreatitis. idiopathic. clinically improved 2. Diabetes mellitus type 2, on insulin with nephropathy 3. Hypertension. 4. Hyperlipidemia. 5. Left kidney cancer, scheduled to have a partial left nephrectomy on 06/01/2021. 6. Morbid obesity. 7. Diabetic nephropathy. 8. Chronic kidney disease, stage 3B. 9. Chronic gout. 10. Peripheral arterial disease. 11. Moderate protein calorie malnutrition. RLE wound POA Plan Plan of Care advance to ADA diet dismiss today if he tolerates lunch increase insulin Comment Review of Relevant I have reviewed the following items puneet (where applicable) has been applied. Labs Laboratory Tests Test 05/10/21 11:54 05/10/21 17:07 05/10/21 20:12 05/11/21 03:55 Glucose (Fingerstick) 414 mg/dL (70-99) 171 mg/dL (70-99) 152 mg/dL (70-99) White Blood Count 6.0 x10^3/uL (4.0-11.0) Red Blood Count 3.67 x10^6/uL (4.30-5.70) Hemoglobin 10.7 g/dL (13.0-17.5) Hematocrit 33.2 % (39.0-53.0) Mean Corpuscular Volume 90 fL (79-100) Mean Corpuscular Hemoglobin 29 pg (25-35) Mean Corpuscular Hemoglobin Concent 32 g/dL (31-37) Red Cell Distribution Width 14.0 % (11.5-14.5) Platelet Count 188 x10^3/uL (140-400) Neutrophils (%) (Auto) 68 % (31-73) Lymphocytes (%) (Auto) 21 % (24-48) Monocytes (%) (Auto) 10 % (0-9) Eosinophils (%) (Auto) 1 % (0-3) Basophils (%) (Auto) 1 % (0-3) Neutrophils # (Auto) 4.0 x10^3/uL (1.8-7.7) Lymphocytes # (Auto) 1.3 x10^3/uL (1.0-4.8) Monocytes # (Auto) 0.6 x10^3/uL (0.0-1.1) Eosinophils # (Auto) 0.1 x10^3/uL (0.0-0.7) Basophils # (Auto) 0.0 x10^3/uL (0.0-0.2) Sodium Level 135 mmol/L (136-145) Potassium Level 4.3 mmol/L (3.5-5.1) Chloride Level 100 mmol/L (98-107) Carbon Dioxide Level 24 mmol/L (21-32) Anion Gap 11 (6-14) Blood Urea Nitrogen 52 mg/dL (8-26) Creatinine 2.5 mg/dL (0.7-1.3) Estimated GFR (Cockcroft-Gault) 31.0 Glucose Level 238 mg/dL (70-99) Calcium Level 9.3 mg/dL (8.5-10.1) Amylase Level 93 U/L (25-115) Lipase 491 U/L (73-393) Test 05/11/21 07:41 05/11/21 12:22 05/11/21 17:13 05/11/21 20:41 Glucose (Fingerstick) 239 mg/dL (70-99) 300 mg/dL (70-99) 307 mg/dL (70-99) 319 mg/dL (70-99) Test 05/12/21 06:25 White Blood Count 5.0 x10^3/uL (4.0-11.0) Red Blood Count 3.44 x10^6/uL (4.30-5.70) Hemoglobin 10.2 g/dL (13.0-17.5) Hematocrit 30.8 % (39.0-53.0) Mean Corpuscular Volume 90 fL (79-100) Mean Corpuscular Hemoglobin 30 pg (25-35) Mean Corpuscular Hemoglobin Concent 33 g/dL (31-37) Red Cell Distribution Width 14.1 % (11.5-14.5) Platelet Count 175 x10^3/uL (140-400) Neutrophils (%) (Auto) 60 % (31-73) Lymphocytes (%) (Auto) 25 % (24-48) Monocytes (%) (Auto) 14 % (0-9) Eosinophils (%) (Auto) 1 % (0-3) Basophils (%) (Auto) 1 % (0-3) Neutrophils # (Auto) 3.0 x10^3/uL (1.8-7.7) Lymphocytes # (Auto) 1.2 x10^3/uL (1.0-4.8) Monocytes # (Auto) 0.7 x10^3/uL (0.0-1.1) Eosinophils # (Auto) 0.1 x10^3/uL (0.0-0.7) Basophils # (Auto) 0.0 x10^3/uL (0.0-0.2) Sodium Level 136 mmol/L (136-145) Potassium Level 4.1 mmol/L (3.5-5.1) Chloride Level 102 mmol/L (98-107) Carbon Dioxide Level 26 mmol/L (21-32) Anion Gap 8 (6-14) Blood Urea Nitrogen 42 mg/dL (8-26) Creatinine 2.2 mg/dL (0.7-1.3) Estimated GFR (Cockcroft-Gault) 36.0 Glucose Level 312 mg/dL (70-99) Calcium Level 8.8 mg/dL (8.5-10.1) Lipase 411 U/L (73-393) Laboratory Tests Test 05/11/21 12:22 05/11/21 17:13 05/11/21 20:41 05/12/21 06:25 Glucose (Fingerstick) 300 mg/dL (70-99) 307 mg/dL (70-99) 319 mg/dL (70-99) White Blood Count 5.0 x10^3/uL (4.0-11.0) Red Blood Count 3.44 x10^6/uL (4.30-5.70) Hemoglobin 10.2 g/dL (13.0-17.5) Hematocrit 30.8 % (39.0-53.0) Mean Corpuscular Volume 90 fL (79-100) Mean Corpuscular Hemoglobin 30 pg (25-35) Mean Corpuscular Hemoglobin Concent 33 g/dL (31-37) Red Cell Distribution Width 14.1 % (11.5-14.5) Platelet Count 175 x10^3/uL (140-400) Neutrophils (%) (Auto) 60 % (31-73) Lymphocytes (%) (Auto) 25 % (24-48) Monocytes (%) (Auto) 14 % (0-9) Eosinophils (%) (Auto) 1 % (0-3) Basophils (%) (Auto) 1 % (0-3) Neutrophils # (Auto) 3.0 x10^3/uL (1.8-7.7) Lymphocytes # (Auto) 1.2 x10^3/uL (1.0-4.8) Monocytes # (Auto) 0.7 x10^3/uL (0.0-1.1) Eosinophils # (Auto) 0.1 x10^3/uL (0.0-0.7) Basophils # (Auto) 0.0 x10^3/uL (0.0-0.2) Sodium Level 136 mmol/L (136-145) Potassium Level 4.1 mmol/L (3.5-5.1) Chloride Level 102 mmol/L (98-107) Carbon Dioxide Level 26 mmol/L (21-32) Anion Gap 8 (6-14) Blood Urea Nitrogen 42 mg/dL (8-26) Creatinine 2.2 mg/dL (0.7-1.3) Estimated GFR (Cockcroft-Gault) 36.0 Glucose Level 312 mg/dL (70-99) Calcium Level 8.8 mg/dL (8.5-10.1) Lipase 411 U/L (73-393) Medications Current Medications Dextrose/Sodium Chloride 1,000 ml @ 100 mls/hr Q10H IV Last administered on 05/09/21at 05:37; Start 05/08/21 at 15:30; Stop 05/09/21 at 10:21; Status DC Morphine Sulfate (Morphine Sulfate) 2 mg PRN Q4HRS PRN IVP PAIN; Start 05/08/21 at 15:30 Clonidine HCl (Catapres Tts-2) 1 patch WEEKLY TD Last administered on 05/09at 09:52; Start 05/09/21 at 09:00; Stop 05/09/21 at 10:21; Status DC Acetaminophen (Tylenol) 650 mg PRN Q6HRS PRN PO MILD PAIN / TEMP > 100.3'F; Start 05/08/21 at 15:30 Pantoprazole Sodium (PROTONIX VIAL for IV PUSH) 40 mg DAILYAC IVP Last adminis tered on 05/09/21at 09:52; Start 05/08/21 at 16:00; Stop 05/09/21 at 10:21; Status DC Heparin Sodium (Porcine) (Heparin Sodium) 5,000 unit Q8HRS SQ Last administered on 05/12/21at 05:47; Start 05/08/21 at 22:00 Lorazepam (Ativan Inj) 1 mg OC PROC PRN IVP [address] Last administered on 05/08/21at 18:15; Start 05/08/21 at 16:00; Stop 05/09/21 at 23:59; Status DC Dextrose (Dextrose 50%-Water Syringe) 12.5 gm PRN Q15MIN PRN IV SEE COMMENTS; Start 05/08/21 at 16:00 Insulin Human Lispro (HumaLOG) 0-12 UNITS PRN Q6HRS PRN SQ SEE COMMENTS Last administered on 05/09/21at 09:55; Start 05/08/21 at 16:15; Stop 05/09/21 at 10:21; Status DC Ondansetron HCl (Zofran) 4 mg PRN Q6HRS PRN IVP NAUSEA/VOMITING Last administered on 05/09/21at 12:26; Start 05/09/21 at 10:15; Stop 05/10/21 at 09:43; Status DC Clonidine HCl (Catapres Tts-2) 2 patch WEEKLY TD ; Start 05/09/21 at 11:00 Insulin Human Lispro (HumaLOG) 0-12 UNITS BG 300-399... PRN Q6HRS PRN SQ SEE COMMENTS Last administered on 05/10/21at 08:59; Start 05/09/21 at 12:00; Stop 05/10/21 at 09:35; Status DC Amino Acids/ Electrolytes/ Dextrose 1,000 ml @ 80 mls/hr [id number] IV Last administered on 05/09/21at 20:54; Start 05/09/21 at 10:00; Stop 05/10/21 at 09:35; Status DC Furosemide (Lasix) 80 mg BID94 PO Last administered on 05/12/21 08:43; Start 05/09/21 at 16:00; Stop 05/12/21 at 09:39; Status DC Atorvastatin Calcium (Lipitor) 40 mg QHS PO Last administered on 05/11/21 21:28; Start 05/09/21 at 21:00 Metoclopramide HCl (Reglan) 5 mg QID PO Last administered on 05/12/21 08:42; Start 05/09/21 at 13:00 Insulin Glargine (Lantus Syringe) 30 unit QHS SQ Last administered on 05/09/21at 21:07; Start 05/09/21 at 21:00; Stop 05/10/21 at 09:35; Status DC Carvedilol (Coreg) 25 mg BIDWMEALS PO Last administered on 05/12/21 08:41; Start 05/09/21 at 11:00 Metolazone (Zaroxolyn) 5 mg QMTH@0900 PO ; Start 05/11/21 at 09:00; Stop 05/11/21 at 09:32; Status DC Ondansetron HCl (Zofran) 4 mg PRN Q6HRS PRN IVP NAUSEA/VOMITING; Start at 10:00 Allopurinol (Zyloprim) 100 mg DAILY PO Last administered on 05/12/21 08:40; Start 05/09/21 at 11:00 Gabapentin (Neurontin) 100 mg TID PO Last administered on 05/12/21 08:42; Start 05/09/21 at 14:00 Pantoprazole Sodium (Protonix) 40 mg DAILYAC PO Last administered on 05/12/21 08:43; Start 05/09/21 at 11:30 Acetaminophen/ Hydrocodone Bitart (Lortab 5/325) 1 tab PRN Q4HRS PRN PO MODERATE-SEVERE PAIN; Start 05/09/21 at 10:00 Amlodipine Besylate (Norvasc) 10 mg DAILY PO Last administered on 05/12/21 08:42; Start 05/09/21 at 11:00 Multivitamins (Thera M Plus) 1 tab DAILY PO Last administered on 05/12/21 08 :43; Start 05/09/21 at 11:00 Clopidogrel Bisulfate (Plavix) 75 mg DAILYWBKFT PO Last administered on 05/12/21 08:43; Start 05/09/21 at 11:00 Hydralazine HCl (Apresoline) 50 mg TID PO Last administered on 05/12/21 08:43; Start 05/09/21 at 11:00 Isosorbide Mononitrate (Imdur) 60 mg DAILY PO Last administered on 05/12/21 08:41; Start 05/09/21 at 11:00 Aspirin (Elena Aspirin) 81 mg DAILY PO Last administered on 05/12/21 08:42; Start 05/09/21 at 11:00 Insulin Glargine (Lantus Syringe) 50 unit QHS SQ Last administered on 05/11/21at 21:30; Start 05/10/21 at 21:00 Insulin Human Lispro (HumaLOG) 0-12 UNITS BG 400-49... TIDAC SQ Last administered on 05/12/21 08:51; Start 05/10/21 at 11:30 Sodium Chloride 1,000 ml @ 75 mls/hr [id number] IV Last administered on 05/10/21at 10:49; Start 05/10/21 at 09:30; Stop 05/11/21 at 17:45; Status DC Insulin Human Lispro (HumaLOG) 14 units TIDAC SQ Last administered on 05/12/21 08:51; Start 05/10/21 at 11:30 Furosemide (Lasix) 80 mg QAM PO ; Start 05/12/21 at 09:45 Active Scripts Active Isosorbide Mononitrate Er (Isosorbide Mononitrate) 30 Mg Tab.er.24h 60 Mg PO DAILY Hydralazine Hcl 50 Mg Tablet 50 Mg PO TID Amlodipine Besylate 10 Mg Tablet 10 Mg PO DAILY Clonidine Tts-2 (Clonidine) 1 Each Patch.tdwk 2 Patch TD SA Carvedilol 25 Mg Tablet 1 Tab PO BID 30 Days Metoclopramide Hcl 10 Mg Tablet 10 Mg PO TIDACHC Children's Aspirin (Aspirin) 81 Mg Tab.chew 81 Mg PO DAILYWBKFT Reported Metolazone 5 Mg Tablet 1 Tab PO TWICE WEEKLY Levemir (Insulin Detemir) 100 Unit/1 Ml Vial 70 Unit SQ HS Novolog (Insulin Aspart) 100 Unit/1 Ml Cartridge 24 Unit SQ BIDAC Gabapentin (Gabapentin) 100 Mg Capsule 200 Mg PO TID Hydrocodone-Apap 5-325 (Hydrocodone Bit/Acetaminophen) 1 Each Tablet 1 Tab PO Q4HRS PRN Omeprazole 40 Mg Capsule.dr 1 Cap PO DAILY Clopidogrel (Clopidogrel Bisulfate) 75 Mg Tablet 1 Tab PO DAILY Allopurinol 100 Mg Tablet 1 Tab PO BID Furosemide 80 Mg Tablet 1 Tab PO BID Centrum Silver Tablet (Multivits-Min/Fa/Lycopene/Lut) 1 Each Tablet 1 Each PO Fish Oil (Banning-3 Fatty Acids) 300 Mg Capsule 1,000 Mg PO DAILY Atorvastatin Calcium 40 Mg Tablet 40 Mg PO HS Vitals/I & O Vital Sign - Last 24 Hours 05/11/21 05/11/21 05/11/21 05/11/21 11:00 15:00 17:19 17:20 Temp 98.3 98.9 98.3 98.9 Pulse 79 83 83 83 Resp 18 18 B/P (MAP) 165/91 (115) 178/74 (108) 178/74 178/74 Pulse Ox 99 99 05/11/21 05/11/21 05/11/21 05/11/21 17:20 17:21 19:00 21:29 Temp 98.5 98.5 Pulse 83 83 79 79 Resp 20 B/P (MAP) 178/74 178/74 146/59 (88) 146/59 Pulse Ox 96 O2 Delivery Room Air 05/11/21 05/12/21 05/12/21 05/12/21 23:00 03:00 07:00 08:41 Temp 98.5 99.0 98.6 98.5 99.0 98.6 Pulse 74 80 72 80 Resp 20 20 20 B/P (MAP) 122/62 (82) 125/45 (71) 142/61 (88) 125/45 Pulse Ox 96 93 96 O2 Delivery Room Air Room Air Room Air 05/12/21 05/12/21 05/12/21 08:41 08:42 08:43 Pulse 72 72 72 B/P (MAP) 142/61 142/61 142/61 Justifications for Admission Other Justification JONNY JOHN MD May 12, 2021 09:53
[2021-05-12] MEDS ORDERED: INSU100V35 SQ (10:05)
[2021-05-12] MEDS ORDERED: METO10TA PO (10:05)
[2021-05-12] MEDS ORDERED: ALLO100T PO (10:05)
[2021-05-12] MEDS ORDERED: GABA-585 PO (10:05)
--- NOTE | 2021-05-12 10:06 | DISCH ---
DISCHARGE INSTRUCTIONS Condition on Discharge Condition on Discharge: Stable Activity After Discharge Activity Instructions for Disc: Activity as tolerated Weight Bearing Status after Di: As tolerated Diet after Discharge Diet after Discharge: Diabetic No Calorie Level Diet Texture: Regular Checks after Discharge Checks after discharge: Check blood sugar, ac/hs Contacting the DR. after DC Call your doctor for: If your condition worsens Follow-Up Follow up with: dr. medina next week Treatment/Equipment after DC Adaptive Equipment Issued: None Comment: JONNY Gurrola MD May 12, 2021 10:06
--- NOTE | 2021-05-12 10:14 | PDOC ---
Provider Note Date of Service: DATE: 05/12/21 TIME: 10:14 Provider Note discharge summary dictated # [id number] Justifications for Admission Other Justification JONNY JOHN MD May 12, 2021 10:14
--- NOTE | 2021-05-12 10:27 | PDOC ---
Date of Service: DATE: 05/12/21 TIME: 10:20 Subjective: Subjective: Feels better, wants to eat more. Takes Reglan BID at home - before meals - keeps odd hours and sometimes won't go to bed til 5:00 a.m. Takes some sort of acid-clinical rn liaison at home. Objective: Vital Signs: Vital Signs Date Time Temp Pulse Resp B/P (MAP) Pulse Ox O2 Delivery O2 Flow Rate FiO2 05/12/21 08:43 72 142/61 05/12/21 07:00 98.6 20 96 Room Air 98.6 Labs: Laboratory Tests Test 05/11/21 12:22 05/11/21 17:13 05/11/21 20:41 05/12/21 06:25 Glucose (Fingerstick) 300 mg/dL 307 mg/dL 319 mg/dL White Blood Count 5.0 x10^3/uL Red Blood Count 3.44 x10^6/uL Hemoglobin 10.2 g/dL Hematocrit 30.8 % Mean Corpuscular Volume 90 fL Mean Corpuscular Hemoglobin 30 pg Mean Corpuscular Hemoglobin Concent 33 g/dL Red Cell Distribution Width 14.1 % Platelet Count 175 x10^3/uL Neutrophils (%) (Auto) 60 % Lymphocytes (%) (Auto) 25 % Monocytes (%) (Auto) 14 % Eosinophils (%) (Auto) 1 % Basophils (%) (Auto) 1 % Neutrophils # (Auto) 3.0 x10^3/uL Lymphocytes # (Auto) 1.2 x10^3/uL Monocytes # (Auto) 0.7 x10^3/uL Eosinophils # (Auto) 0.1 x10^3/uL Basophils # (Auto) 0.0 x10^3/uL Sodium Level 136 mmol/L Potassium Level 4.1 mmol/L Chloride Level 102 mmol/L Carbon Dioxide Level 26 mmol/L Anion Gap 8 Blood Urea Nitrogen 42 mg/dL Creatinine 2.2 mg/dL Estimated GFR (Cockcroft-Gault) 36.0 Glucose Level 312 mg/dL Calcium Level 8.8 mg/dL Lipase 411 U/L Imaging: GES 05/11 1 hour 71% (normal range 34.8-91%) 2 hour 56% (normal range 2.7-60%) 3 hour 45% (normal range 0.5-28%) 4 hour 39% (normal range 0-10%) IMPRESSION: 1. Delayed gastric emptying. PE: GEN: NAD - sitting in chair LUNGS: CTAB HEART: RRR ABD: less tender epigastrium NEURO/PSYCH: A & O 3 A/P: Upper abd discomfort, n/v - resolving Gastroparesis, GERD Mildly elevated lipase (improving), ?abnormal pancreatic head on CT - unclear significance DM (A1c 9.2), CKD, left renal cancer, anemia -- Since I have seen, note plans for discharge and diet advanced. We discussed aggressive DM control, gastroparesis diet, and continuing Reglan (?only taking BID at home? - getting QID here) and PPI. Justicifation of Admission Dx: Justifications for Admission: Justification of Admission Dx: Yes RJ HAYS May 12, 2021 10:27
--- NOTE | 2021-05-12 10:29 | DS ---
DATE OF DISCHARGE: 05/12/2021 LOCATION: Room 528. CONSULTANTS: Include Dr. Wheat, Dr. Churchill, Dr. Wylie. FINAL DIAGNOSES: 1. Acute idiopathic pancreatitis. 2. Diabetic gastroparesis. 3. Diabetes mellitus type 2, on insulin with hyperglycemia, diabetic nephropathy and diabetic neuropathy. 4. Hypertension. 5. Hyperlipidemia. 6. Left kidney cancer, scheduled for a partial left nephrectomy on 06/01/2021. 7. Morbid obesity. 8. Chronic kidney disease, stage 3B. 9. Chronic gout. 10. Peripheral arterial disease. 11. Moderate protein calorie malnutrition. HOSPITAL COURSE: The patient is a 71-year-old morbidly obese -[place] male with history of diabetes mellitus type 2, treated with insulin, diabetic nephropathy and diabetic neuropathy with chronic kidney disease stage 3B, who has hypertension, hyperlipidemia, recently diagnosed left kidney cancer, scheduled for a partial left nephrectomy on 06/01/2021, who has chronic gout, peripheral arterial disease, admitted to [facility] from my office on 05/08/2021 with 1-week history of epigastric abdominal pain associated with nausea and vomiting. The patient denies any trauma to the abdomen, does not drink any alcohol. He took some Pepto-Bismol before that and he has not had a black stool. He denies any fever. He was admitted to the hospital, underwent a CAT scan of the abdomen and pelvis and ultrasound of his abdomen. His gallbladder was fine. His amylase and lipase were elevated, especially with lipase over 1800, consistent with acute pancreatitis. Triglyceride levels were not over 500 and he was seen in consultation by Dr. Wylie for General Surgery, Dr. Churchill for GI, Dr. Wheat for Nephrology. Serum creatinine was slightly high as he had acute kidney injury on top of chronic disease stage 3B, which improved with IV hydration. He was treated with IV morphine p.r.n. and IV fluids. He was made n.p.o. initially and eventually started on clear liquids, tolerated his full liquids yesterday. He will be started on a diabetic diet today. His abdominal pain took a while to improve, improved yesterday and essentially resolved today. Denies any nausea, vomiting, tolerated his full liquids yesterday without any vomiting. His blood sugars are elevated, but he is on a full liquid diet, so we will be increasing his insulin to his doses close to what he takes at home. If he tolerates his diabetic lunch today with solid food and liquids, he will be dismissed later today and was told to make an appointment to see Dr. Chery in the office next week. DISCHARGE INSTRUCTIONS: If he is dismissed, he will be dismissed to home. He will be dismissed on furosemide 80 mg p.o. b.i.d.; atorvastatin 40 mg at bedtime; metoclopramide 5 mg before meals t.i.d. and bedtime; NovoLog insulin 30 units twice a day, which he can increase it to 34 units b.i.d. if necessary and that is his home dose; carvedilol 25 mg b.i.d.; Levemir insulin is actually 70 units at bedtime; metolazone, will not be renewed, it will be discontinued, so he would not take that; allopurinol 100 mg every day; gabapentin 100 mg t.i.d.; hydrocodone 5-325 one tablet b.i.d. p.r.n. for pain; omeprazole 40 mg every day; Re[place]umj-OHJ-1 two patches every Tuesday; aspirin 81 mg every day; amlodipine 10 mg every day; multiple vitamin once a day; fish oil 1 gram daily; Plavix 75 mg every day; hydralazine 50 mg t.i.d.; Imdur 60 mg every day and eyedrops for glaucoma. Make an appointment to see Dr. Chery in the office next week. IBETH DR: Monique TID: [id number]
[2021-05-12 11:00] VITALS: BP 132/55
[2021-05-12] MEDS ORDERED: INSULIN LISPRO 300 UNITS/3 ML VIAL. SQ SCH (11:30)
--- NOTE | 2021-05-12 15:00 | NUR ---
Discharge instructions given, questions and concerns answered, all personal belongings in bags at the bedside, saline lock removed from patients right hand per cable driller.
--- NOTE | 2021-05-12 15:55 | NUR ---
PATIENT LEAVES THE UNIT PER W/C AND ACCOMPANIED BY [facility] AND THE PATIENTS , EMOTIONAL SUPPORT GIVEN, FOLLOW UP APPOINTMENTS ENCOURAGED.
[2021-05-12] MEDS ORDERED: INSULIN GLARGINE SYRINGE. SQ SCH (21:00)
== END 2021-05-12 15:55 | disposition home or self-care (01) | DRG 73 ==
LOC: 5 NORTH 14:12
PROVIDERS: ADMIT Internal Medicine; ATTEND Internal Medicine
DX: E11.43 Type 2 diabetes mellitus with diabetic autonomic (poly)neuropathy (principal); K85.00 Idiopathic acute pancreatitis without necrosis or infection; E44.0 Moderate protein-calorie malnutrition; N17.9 Acute kidney failure, unspecified; C64.2 Malignant neoplasm of left kidney, except renal pelvis; D64.9 Anemia, unspecified; E11.22 Type 2 diabetes mellitus with diabetic chronic kidney disease; E11.51 Type 2 diabetes mellitus with diabetic peripheral angiopathy without gangrene; E66.01 Morbid (severe) obesity due to excess calories; E78.5 Hyperlipidemia, unspecified; E89.0 Postprocedural hypothyroidism; F17.210 Nicotine dependence, cigarettes, uncomplicated; I12.9 Hypertensive chronic kidney disease with stage 1 through stage 4 chronic kidney disease, or unspecified chronic kidney disease; I87.8 Other specified disorders of veins; K21.9 Gastro-esophageal reflux disease without esophagitis; K31.84 Gastroparesis; K76.0 Fatty (change of) liver, not elsewhere classified; M1A.9XX0 Chronic gout, unspecified, without tophus (tophi); N18.32 Chronic kidney disease, stage 3b; Z79.02 Long term (current) use of antithrombotics/antiplatelets; Z79.4 Long term (current) use of insulin; Z79.82 Long term (current) use of aspirin; Z83.3 Family history of diabetes mellitus; Z85.528 Personal history of other malignant neoplasm of kidney; Z90.5 Acquired absence of kidney; Z98.41 Cataract extraction status, right eye; Z98.42 Cataract extraction status, left eye; Z79.899 Other long term (current) drug therapy; Z68.35 Body mass index [BMI] 35.0-35.9, adult; Z88.8 Allergy status to other drugs, medicaments and biological substances
CPT/HCPCS: 36415; 74022; 74176; 76705; 78264; 80048; 80053; 80061; 82150; 82962; 83036; 83690; 83735; 85025; 93005; A9541; C9113; J1644; J1815; J2060; J2405; J3490; J7042; G0378